=== PATIENT | male | born 1945 | race Two or more races ===

== ENCOUNTER → 2018-12-06 | Emergency (ER) | payer OTHER | LOC: JER 23:17 ==

== ENCOUNTER 2020-05-19 08:48 | Inpatient (IN) | payer OTHER ==
--- NOTE | 2020-05-19 09:01 | PDOC ---
History of Present Illness - General Stated Complaint: SOB/ COUGHING Time Seen by Provider: 05/19/20 08:58 - History of Present Illness Initial Comments: 05/19/20 09:05 74 y/o M hx of HTN, hyperlipidemia, atrial fibrillation (on coumadin), aortic stenosis s/p bioAVR, h/o CVA, CLL(not on meds for last 2 months per his [facility] oncologist). pt began to have dry cough 6 days ago. Pt went to his pcp on Wednesday were he tested positive for covid. was sent home with azithromycin and methylprednisolone, did earlier yesterday but began to have shortness of breath last night. per son, pulse ox at home was 86-87%. pt endorses dry cough and dry heaving denies fevers, chills, vomiting, diarrhea, abdominal pain, dysuria, hematuria PMHx: as noted above ROS: as noted Allergies: NKDA ROS: GENERAL/CONSTITUTIONAL: No fever or chills. No weakness. HEAD, EYES, EARS, NOSE AND THROAT: No change in vision. No ear pain or discharge. No sore throat.pt hard of hearing at baseline CARDIOVASCULAR: No chest pain or shortness of breath RESPIRATORY:dry cough. GASTROINTESTINAL: No nausea, vomiting, diarrhea or constipation. GENITOURINARY: No dysuria, frequency, or change in urination. MUSCULOSKELETAL: No joint or muscle swelling or pain. No neck or back pain. SKIN: No rash NEUROLOGIC: No headache, vertigo, loss of consciousness, or change in strength/sensation. ENDOCRINE: No increased thirst. No abnormal weight change HEMATOLOGIC/LYMPHATIC: No anemia, easy bleeding, or history of blood clots. ALLERGIC/IMMUNOLOGIC: No hives or skin allergy. PE: GENERAL: Awake, alert, and fully oriented, in no acute distress HEAD: No signs of trauma, normocephalic, atraumatic EYES: PERRLA, EOMI, sclera anicteric, conjunctiva clear ENT: Auricles normal inspection, hearing grossly normal, nares patent, oropharynx clear without exudates. Moist mucosa NECK: Normal ROM, supple, no lymphadenopathy, JVD, or masses LUNGS: crackles in lung bases bilaterally. using accessory muscles. HEART: tachycardic, normal S1 and S2, no murmurs, rubs or gallops, peripheral pulses normal and equal bilaterally. ABDOMEN: Soft, nontender, normoactive bowel sounds. No guarding, no rebound. No masses EXTREMITIES trace edema bilateral extremities. NEUROLOGICAL: Cranial nerves II through XII grossly intact. Normal speech, no focal sensorimotor deficits SKIN: Warm, Dry, normal turgor, no rashes or lesions noted MDM 05/19/20 09:33 74 y/o M hx of HTN, hyperlipidemia, atrial fibrillation (on coumadin), aortic stenosis s/p bioAVR, h/o CVA, CLL(not on meds for last 2 months per his [facility] oncologist). covid-19 workup pt 78% on room air, initially placed on nasal cannula. with mild improvement in O2sat, but work of breathing still significant -now on NRB at 89% will continue to monitor work of breathing, but pt might require high flow/intubation respiratory paged for high flow. 05/19/20 10:00 CXR: bilateral infiltrates. will admit to hospital. 05/19/20 10:50 Past History - Medical History Allergies/Adverse Reactions: Allergies Allergy/AdvReac Type Severity Reaction Status Date / Time No Known Allergies Allergy Verified 12/06/18 23:28 Home Medications: Ambulatory Orders Furosemide [Lasix -] 40 mg PO DAILY 11/14/14 Cyclophosphamide 50 mg PO DAILY 03/01/18 Warfarin Na [Coumadin -] 12 mg PO DAILY@1800 tablet 03/02/18 Meclizine HCl 12.5 mg PO PRN 12/07/18 Metoprolol Succinate 25 mg PO DAILY 12/07/18 Simvastatin 40 mg PO HS 12/07/18 Aspirin [ASA -] 81 mg PO DAILY #30 tab.chew 12/13/18 Cancer: Yes (colon, CLL) Cardiac Disorders: Yes (aFIB, aortic stenosis) CVA: Yes (2012) COPD: No CHF: Yes GI Disorders: Yes (h/o colon cancer) HTN: Yes Hypercholesterolemia: Yes - Surgical History Abdominal Surgery: Yes (colectomy) Cardiac Surgery: Yes (aortic valve replacement) - Immunization History Td Vaccination: Yes Immunization Up to Date: Yes - Psycho-Social/Smoking History Smoking Status: No Smoking History: Never smoked Years of Tobacco Use: 0 Have you smoked in the past 12 months: No Number of Cigarettes Smoked Daily: 0 Cigars Per Day: 0 ED Treatment Course - LABORATORY CBC & Chemistry Diagram: 05/25/20 06:00 05/25/20 06:00 Discharge - Discharge Information Problems reviewed: Yes Clinical Impression/Diagnosis: COVID-19 with multiple comorbidities Condition: Disposition: - Follow up/Referral - Patient Discharge Instructions - Post Discharge Activity
--- OUTSIDE RECORDS SUMMARY | 2020-05-19 09:34 | XMS ---
:1945 Author Organization [facility] Support Name Relationship Address Phone DRE MARCUM SON [address] [facility] [facility] [facility] [place] [phone] RE Unavailable Unavailable Unavailable DINO MARCUM [address] [facility] [place] [address] Re-disclosure Warning The records that you are about to access may contain information from federally- assisted alcohol or drug abuse programs. If such information is present, then the following federally mandated warning applies: This information has been disclosed to you from records protected by federal confidentiality rules (42 CFR part 2). The federal rules prohibit you from making any further disclosure of this information unless further disclosure is expressly permitted by the written consent of the person to whom it pertains or as otherwise permitted by 42 CFR part 2. A general authorization for the release of medical or other information is NOT sufficient for this purpose. The Federal rules restrict any use of the information to criminally investigate or prosecute any alcohol or drug abuse patient.The records that you are about to access may contain highly sensitive health information, the redisclosure of which is protected by Article 27-F of the [facility] Public Health law. If you continue you may haveaccess to information: Regarding HIV / AIDS; Provided by facilities licensed or operated by the [facility] Office of Mental Health; or Provided by the [facility] Office for People With Developmental Disabilities. If such information is present, then the following [facility] mandated warning applies: This information has been disclosed to you from confidential records which are protected by state law. State law prohibits you from making any further disclosure of this information without the specific written consent of the person to whom it pertains, or as otherwise permitted by law. Any unauthorized further disclosure in violation of state law may result in a fine or residential sentence or both. A general authorization for the release of medical or other information is NOT sufficient authorization for further disclosure. Insurance Providers Payer name Policy type Policy ID Covered Covered green party's Policy P alycia / Coverage green party ID relationship to Dennis Inf ormation type dennis AFFILIATED [id number] SP [id number] HEALTH AND INSURANC MEDICARE [id number] SP [id number] [employer] [id number] SP [id number] HEALTH[employer]ERS [id number] SP [id number] LOCAL 210 Results ID Date Data Source [id number] 12/05/2019 12:00:00 AM EDT [facility] Name Value Range Interpretation Code Description Data Fani rce(s) Supporting Document(s ) 2019-nCoV [facility] RNA XXX DAWIT+probe- Imp This lab was ordered by [facility] and reported by [employer] Procedure
[2020-05-19] MEDS ORDERED: DEXAMETHASONE SOD PHOSPHATE 4 MG/1 ML VIAL IVPUSH ONE (10:14)
[2020-05-19 10:20] LABS: VENOUS O2 SATURATION 39.5 % (70-80); VENOUS PCO2 33.1 mmHg (38-52); VENOUS PH 7.399 (7.310-7.410)
[2020-05-19 10:24] LABS: EPI CELLS 13 /uL (0-25.1); HYALINE CASTS 3 /uL (0-3.1); PROTHROMBIN TIME (PATIENT) 65.5 SEC (9.7-13.0); URINE APPEARANCE CLEAR; URINE BACTERIA 2 /uL (0-1359); URINE BILIRUBIN NEGATIVE (NEGATIVE); URINE COLOR YELLOW; URINE GLUCOSE (UA) NEGATIVE (NEGATIVE); URINE KETONE NEGATIVE (NEGATIVE); URINE LEUK ESTERASE NEGATIVE (NEGATIVE); URINE NITRITE NEGATIVE (NEGATIVE); URINE PROTEIN 3+ (NEGATIVE); URINE RBC 8 /uL (0-23.9); URINE WBC 9 /uL (0-25.8)
[2020-05-19 10:27] LABS: ACTIVATED PTT 37.4 SECONDS (25.2-36.5)
[2020-05-19 10:32] LABS: CHLORIDE 104 mmol/L (98-107); POTASSIUM 4.3 mmol/L (3.5-5.1); SODIUM 135 mmol/L (136-145)
[2020-05-19 10:34] LABS: CALCIUM 8.5 mg/dL (8.5-10.1)
[2020-05-19 10:35] LABS: ALBUMIN 3.7 g/dl (3.4-5.0); ANION GAP 9 MMOL/L (8-16); BLOOD UREA NITROGEN 26.7 mg/dL (7-18); CO2 23 mmol/L (21-32); GLUCOSE,RANDOM 103 mg/dL (74-106)
[2020-05-19] MEDS ORDERED: DEXAMETHASONE SOD PHOSPHATE 4 MG/1 ML VIAL ONE (10:37)
[2020-05-19 10:38] LABS: SGOT/AST 41 U/L (15-37); SGPT/ALT 23 U/L (13-61)
[2020-05-19 10:40] LABS: BILIRUBIN,TOTAL 0.7 mg/dL (0.2-1); TOT PROT 6.8 g/dl (6.4-8.2)
[2020-05-19 10:41] LABS: ALK PHOS 82 U/L (45-117)
--- NOTE | 2020-05-19 10:55 | PDOC ---
Documentation entered by Margarita Junior SCRIBE, acting as scribe for Briana Feldman MD. Briana Feldman MD: This documentation has been prepared by the Vernon rutherford Ana, SCRIBE, under my direction and personally reviewed by me in its entirety. I confirm that the documentation accurately reflects all work, treatment, procedures, and medical decision making performed by me. Attending Attestation - Resident Resident Name: John Persaud - ED Attending Attestation I have performed the following: I have examined & evaluated the patient, The case was reviewed & discussed with the resident, I agree w/resident's findings & plan, Exceptions are as noted - HPI HPI: 05/19/20 09:34 Patient is a 74 year old male with a significant past medical history of hypertension, hyperlipidemia, atrial fibrillation, aortic stenosis (s/p bioAVR), CVA, and CLL, who presents to the ED with a dry cough x6 days. Patient stated he went to go see his PCP 2 days ago where he tested positive for COVID19 and sent home with prescribed medications. Patient stated he began to experienced SOB last night and per son his pulse ox was 86% at home. Patient endorses: dry cough and dry heaving Patient denies: fever, chills, vomiting, diarrhea, abdominal pain, dysuria, hematuria, or any other related symptoms. Allergies: NKDA - Physicial Exam PE: 05/19/20 10:23 Agree with resident exam. Patient is alert and oriented and is in moderate respiratory distress. He is speaking in 3-4 word sentences but is extremely tachypneic. Lungs with crackles in the bases bilaterally. 05/19/20 10:31 - Critical Care Time Total Critical Care Time: 60 Critical Care Statement: The care of this patient involved high complexity d ecision making to prevent further life threatening deterioration of the patient's condition and/or to evaluate & treat vital organ system(s) failure or risk of failure. - Medical Decision Making 05/19/20 10:35 Pt presents to the ED complaining of shortness of breath and dry cough for six days. Patient has a history of positive covid test, as well as the extensive past medical history discussed below. Hypoxic on arrival, improved with high flow but remains in the low 90s. Likely COVID PNA. CXR shows bilateral infiltrates. Luke treat with dexamethasone, consult ICU, and admit. Attempted proning but patient was unable to tolerate secondary to enlarged spleen. WIll monitor. Discharge - Discharge Information Problems reviewed: Yes Clinical Impression/Diagnosis: COVID-19 with multiple comorbidities - Follow up/Referral - Patient Discharge Instructions - Post Discharge Activity
[2020-05-19 11:02] LABS: INR 5.6 (0.83-1.09)
[2020-05-19] MEDS ORDERED: ACETAMINOPHEN 1000 MG/100 ML VIAL (NON FORMULARY) IVPB ONE (11:13)
[2020-05-19 11:16] LABS: BASO % 0.2 % (0-2.0); EOS % 0.1 % (0-4.5); HEMATOCRIT 39.1 % (35.4-49); HEMOGLOBIN 11.7 GM/dL (11.7-16.9); MCHC 29.8 g/dl (32.0-35.9); MEAN CELL VOLUME 90.6 fl (80-96); MONO % 2.6 % (3.8-10.2); NEUT % 5.8 % (42.8-82.8); PLATELET COUNT 93 K/MM3 (134-434); RBC 4.31 M/mm3 (4.00-5.60); RDW 17.6 % (11.9-15.9)
[2020-05-19] MEDS ORDERED: ACETAMINOPHEN INJECTION 100 ML IVPB ONE (11:17)
[2020-05-19 11:22] LABS: LDH 444 U/L (87-246)
--- OUTSIDE RECORDS SUMMARY | 2020-05-19 11:35 | XMS ---
:1945 Author Organization [facility] Support Name Relationship Address Phone RE, RETIRED Unavailable Unavailable Unavailable DRE MARCUM SON [address] [facility] [place] [place] [address] RE Unavailable Unavailable Unavailable DINO MARCUM [address] [facility] [place] [address] Re-disclosure Warning The records that you are [...] is protected by Article 27-F of the [facility] Public Health law. If you continue you may haveaccess to information: Regarding HIV / AIDS; Provided by facilities licensed or operated by the [facility] Office of Mental Health; or Provided by the [facility] Office for People With Developmental Disabilities. If such information is present, then the following [facility] mandated warning applies: This information has been [...] law may result in a fine or alf sentence or both. A general authorization for the release of medical or other information is NOT sufficient authorization for further disclosure. Insurance Providers Payer name Policy type Policy ID Covered Covered libertarian's Policy P alycia / Coverage libertarian ID relationship to Dennis Inf ormation type dennis AFFILIATED [id number] SP [id number] HEALTH AND INSURANC MEDICARE [id number] SP [id number] [employer] [id number] SP [id number] [facility] MNT [employer] [id number] SP [id number] LOCAL 210 Results ID Date Data Source [id number] 12/05/2019 12:00:00 AM EDT [facility] Name Value Range Interpretation Code Description Data Fani rce(s) Supporting Document(s ) 2019-nCoV [facility] RNA XXX DAWIT+probe- Imp This lab was ordered by [facility] and reported by [employer] Procedure
--- NOTE | 2020-05-19 11:52 | EKG ---
Test Reason : Blood Pressure : / mmHG Vent. Rate : 123 BPM Atrial Rate : 277 BPM P-R Int : 000 ms QRS Dur : 112 ms QT Int : 350 ms P-R-T Axes : 000 -66 036 degrees QTc Int : 501 ms ATRIAL FIBRILLATION WITH RAPID VENTRICULAR RESPONSE RIGHT BUNDLE BRANCH BLOCK LEFT ANTERIOR FASCICULAR BLOCK BIFASCICULAR BLOCK ABNORMAL ECG WHEN COMPARED WITH ECG OF 07-DEC-2018 00:08, NO SIGNIFICANT CHANGE WAS FOUND Confirmed by JEFFREY VICKERS MD ([id number]) on 05/19/2020 11:52:34 AM Referred By: Confirmed By:JEFFREY VICKERS MD
[2020-05-19] MEDS ORDERED: REMDESIVIR 200 MG in SODIUM CHLORIDE 210 ML IVPB ONE (12:07)
[2020-05-19 12:14] LABS: PLATELET ESTIMATE DECREASED
[2020-05-19 12:16] LABS: LYMPH % 91.3 % (8-40)
--- NOTE | 2020-05-19 13:12 | CON.ID ---
Consult Consult Specialty:: infectious disease Referred by:: dr vicente Reason for Consultation:: pneumonia - History of Present Illness Chief Complaint: sob History of Present Illness: 74 yo man with history of CLL, no meds for 2 months, history of s/p bioAVR chronic cough daughter miguel and positive for covid- tested on Wednesday he took his dad to the PMD for testing - patient was asymptomatic no fevers or chills no SOB no nausea or vomiting no rash he tested postivie for covid was started on medrol martha and Zpak this am was SOB- pulseox 85% at home advised to dome to ED cxray with bilateral infiltrates +hypoxia- now on high flow oxygen elevated inflammatory markers noted last hospitalized 2 years ago for pneumonia he has been doing well recently went to [facility] for [facility] time last Wednesday as well - History Source History Provided By: Patient, Family Member (son) Limitations to Obtaining History: No Limitations - Past Medical History 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 Cardio/Vascular: Yes: AFIB, Aortic Stenosis, HTN, Hyperlipdemia, Mitral Insufficiency Pulmonary: Yes: Cancer (colon cancer ) Gastrointestinal: Yes: Cancer (Colon cancer 19yrs ago) Heme/Onc: Yes: Cancer (CLL) Endocrine: No: Diabetes Mellitus - Past Surgical History Past Surgical History: Yes: Colectomy (secondary colon cancer 19yrs ago), Hernia Repair Additional Surgical History: BIOAVR - Alcohol/Substance Use Hx Alcohol Use: No History of Substance Use: reports: None - Smoking History Smoking history: Never smoked Have you smoked in the past 12 months: No Aproximately how many cigarettes per day: 0 - Social History Usual Living Arrangement: With Spouse ADL: Independent History of Recent Travel: No Home Medications - Allergies Allergies/Adverse Reactions: Allergies Allergy/AdvReac Type Severity Reaction Status Date / Time No Known Allergies Allergy Verified 12/06/18 23:28 - Home Medications Home Medications: Ambulatory Orders Furosemide [Lasix -] 40 mg PO DAILY 11/14/14 Cyclophosphamide 50 mg PO DAILY 03/01/18 Warfarin Na [Coumadin -] 12 mg PO DAILY@1800 tablet 03/02/18 Meclizine HCl 12.5 mg PO PRN 12/07/18 Metoprolol Succinate 25 mg PO DAILY 12/07/18 Simvastatin 40 mg PO HS 12/07/18 Aspirin [ASA -] 81 mg PO DAILY #30 tab.chew 12/13/18 Family Medical History Family History: Denies Review of Systems - Review of Systems Constitutional: denies: Chills, Fever Eyes: reports: No Symptoms HENT: reports: No Symptoms. denies: Difficult Swallowing Neck: reports: No Symptoms Cardiovascular: denies: Chest Pain Respiratory: reports: Cough, SOB Gastrointestinal: reports: No Symptoms. denies: Abdominal Pain, Diarrhea, Nausea, Vomiting Genitourinary: reports: No Symptoms Musculoskeletal: reports: No Symptoms Integumentary: reports: No Symptoms Neurological: reports: No Symptoms Physical Exam Vital Signs: Vital Signs Temperature 98.8 F 05/19/20 08:55 Pulse Rate 115 H 05/19/20 11:55 Respiratory Rate 27 H 05/19/20 11:55 Blood Pressure 155/82 05/19/20 11:55 O2 Sat by Pulse Oximetry (%) 94 L 05/19/20 10:09 Constitutional: Yes: Well Nourished, No Distress, Calm Eyes: Yes: Conjunctiva Clear, EOM Intact HENT: Yes: Atraumatic, Normocephalic. No: Thrush Neck: Yes: Supple Cardiovascular: Yes: Regular Rate and Rhythm Respiratory: Yes: Regular, CTA Bilaterally, Diminished (at bases) Gastrointestinal: Yes: Normal Bowel Sounds, Soft, Abdomen, Obese, Other (hernia, soft, reducible) ...Rectal Exam: Yes: Deferred Edema: No Integumentary: No: Rash Neurological: Yes: Alert, Oriented Labs: CBC, BMP 05/19/20 09:37 05/19/20 09:57 ANC 16K cultures pending Imaging - Results Chest X-ray: Report Reviewed, Image Reviewed (bilateral infiltrates) Problem List - Problems (1) Acute hypoxemic respiratory failure Code(s): J96.01 - ACUTE RESPIRATORY FAILURE WITH HYPOXIA (2) Bilateral pneumonia Code(s): J18.9 - PNEUMONIA, UNSPECIFIED ORGANISM (3) COVID-19 with multiple comorbidities Code(s): U07.1 - COVID-19 (4) Prolonged Q-T interval on ECG Code(s): R94.31 - ABNORMAL ELECTROCARDIOGRAM [ECG] [EKG] (5) CLL (chronic lymphocytic leukemia) Code(s): C91.10 - CHRONIC LYMPHOCYTIC LEUK OF B-CELL TYPE NOT ACHIEVE REMIS Assessment/Plan covid pneumonia with hypoxia- agree with steroids and remdesivir needs influenza testing legionella antigen rocephin/doxycycline (prolonged qtc) daily labs daily inflammatory markers d/w son he is aware family needs to quarantine at home as they have been exposed to both father and daughter
[2020-05-19] MEDS ORDERED: CEFTRIAXONE 2 GM in DEXTROSE 5%-WATER 100 ML IVPB SCH (13:15)
--- NOTE | 2020-05-19 13:37 | CONSULT ---
Consult Consult Specialty:: PULM/CCM Reason for Consultation:: ROSALBA on CKD - History of Present Illness Chief Complaint: Dizziness, fatigue and SOB History of Present Illness: 74 year old male with a significant medical history of hypertension, hyperlipidemia, atrial fibrillation, aortic stenosis (s/p bioAVR), CVA, and CLL, who presents to the ED with a dry cough x6 days. Patient tested positive 2 days ago at PCP office, treated with azythromycin and medrol. Patient was paced on HFNC, given 6 mg of Dex and admitted to ICU for further management of resp iratory failure secondary to COVID-19 PNA in the settings of progressive SOB and bilateral opacities shown on CXR. 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 Cardio/Vascular: Yes: AFIB, Aortic Stenosis, HTN, Hyperlipdemia, Mitral Insufficiency Pulmonary: Yes: Cancer (colon cancer ) Gastrointestinal: Yes: Cancer (Colon cancer 19yrs ago) Endocrine: No: Diabetes Mellitus - Past Surgical History Past Surgical History: Yes: Colectomy (secondary colon cancer 19yrs ago), Hernia Repair Additional Surgical History: BIOAVR - Alcohol/Substance Use Hx Alcohol Use: No History of Substance Use: reports: None - Smoking History Smoking history: Never smoked Have you smoked in the past 12 months: No Aproximately how many cigarettes per day: 0 - Social History Usual Living Arrangement: With Spouse ADL: Independent History of Recent Travel: No Home Medications - Allergies Allergies/Adverse Reactions: Allergies Allergy/AdvReac Type Severity Reaction Status Date / Time No Known Allergies Allergy Verified 12/06/18 23:28 - Home Medications Home Medications: Ambulatory Orders Furosemide [Lasix -] 40 mg PO DAILY 11/14/14 Cyclophosphamide 50 mg PO DAILY 03/01/18 Warfarin Na [Coumadin -] 12 mg PO DAILY@1800 tablet 03/02/18 Meclizine HCl 12.5 mg PO PRN 12/07/18 Metoprolol Succinate 25 mg PO DAILY 12/07/18 Simvastatin 40 mg PO HS 12/07/18 Aspirin [ASA -] 81 mg PO DAILY #30 tab.chew 12/13/18 Family Medical History Family History: Denies Review of Systems - Review of Systems Constitutional: reports: Fever, Weakness Eyes: reports: No Symptoms HENT: reports: No Symptoms Neck: reports: No Symptoms Cardiovascular: reports: Shortness of Breath Respiratory: reports: Cough, Exercise Intolerance, SOB on Exertion Gastrointestinal: reports: No Symptoms Genitourinary: reports: No Symptoms Breasts: reports: No Symptoms Reported Musculoskeletal: reports: Muscle Weakness Integumentary: reports: No Symptoms Neurological: reports: No Symptoms Endocrine: reports: No Symptoms Hematology/Lymphatic: reports: No Symptoms Psychiatric: reports: No Symptoms Physical Exam Vital Signs: Vital Signs Temperature 98.8 F 05/19/20 08:55 Pulse Rate 115 H 05/19/20 11:55 Respiratory Rate 27 H 05/19/20 11:55 Blood Pressure 155/82 05/19/20 11:55 O2 Sat by Pulse Oximetry (%) 94 L 05/19/20 10:09 Constitutional: Yes: Well Nourished, Calm, Mild Distress Eyes: Yes: WNL, Conjunctiva Clear, EOM Intact HENT: Yes: WNL, Atraumatic, Normocephalic Neck: Yes: WNL, Supple, Trachea Midline Cardiovascular: Yes: WNL, Tachycardia, Pulse Irregular, S1, S2 Respiratory: Yes: Cough, Poor Air Entry, SOB on Exertion, Other (HFNC) Gastrointestinal: Yes: WNL, Normal Bowel Sounds, Soft ...Rectal Exam: Yes: Deferred Renal/: Yes: WNL Breast(s): Yes: WNL Musculoskeletal: Yes: Muscle Weakness Extremities: Yes: WNL Edema: No Peripheral Pulses WNL: Yes Integumentary: Yes: WNL ...Motor Strength: WNL Psychiatric: Yes: WNL Labs: CBC, BMP 05/19/20 09:37 05/19/20 09:57 Imaging - Results Chest X-ray: Image Reviewed (Personal read: 05/19 Bilateral opacities) Problem List - Problems (1) COVID-19 with multiple comorbidities Code(s): U07.1 - COVID-19 (2) Acute hypoxemic respiratory failure Code(s): J96.01 - ACUTE RESPIRATORY FAILURE WITH HYPOXIA (3) Abnormal INR Code(s): R79.1 - ABNORMAL COAGULATION PROFILE (4) Atrial fibrillation Code(s): I48.91 - UNSPECIFIED ATRIAL FIBRILLATION Qualifiers: Atrial fibrillation type: chronic (5) CLL (chronic lymphocytic leukemia) Code(s): C91.10 - CHRONIC LYMPHOCYTIC LEUK OF B-CELL TYPE NOT ACHIEVE REMIS (6) Thrombocytopenia Code(s): D69.6 - THROMBOCYTOPENIA, UNSPECIFIED (7) Weakness Code(s): R53.1 - WEAKNESS Assessment/Plan 74 year old male with a significant medical history of hypertension, hyperlipidemia, atrial fibrillation, aortic stenosis (s/p bioAVR), CVA, and CLL, who admitted to ICU for further management of respiratory failure secondary to COVID-19 PNA. -Maintain HFNC (currently on 100%/60 L flow) -Titrate FiO2 to maintain SaO2 >92% -Pulmonary toileting -Continue home dose metoprolol for AFIB -Maintain MAP>65 -Will start Remdesivir -No Convalescent Plasma at this time due to leukocytosis (227) -Dexamethasone 6 mg IVP daily -Continue Rocephin and doxycycline -Follow up on cultures -Appreciated ID recs -Strict I/O -Trend and replete lytes, keep Mg>2, K>4 -Keep NPO at this time due to high risk for intubation -Patient on Coumadin at home, INR roday 5,6; will hold AC today and reassess levels in am; no active bleeding at this time. -SCDs BL LE -Pantoprazole for PUD ppx Jayna Garcia ACNP [id number]
[2020-05-19] MEDS ORDERED: DEXTROSE 5%-WATER 100 ML IVPB ONE (13:40)
[2020-05-19] MEDS: PANTOPRAZOLE SODIUM 40 MG VIAL IVPUSH SCH (14:35)
[2020-05-19] MEDS: METOPROLOL TARTRATE 25 MG TABLET (FP) PO SCH (14:35)
[2020-05-19] MEDS ORDERED: PT OWN MED DRAWER 7, Y5N ONE ×2 (17:58→19:59)
[2020-05-19] MEDS: DOXYCYCLINE INJECTION 100 MG in DEXTROSE 5%-WATER - 100 ML IVPB SCH (22:00)
--- NOTE | 2020-05-19 22:23 | HP ---
Admitting History and Physical - Admission History of Present Illness: Pt is a 74 y/o male w/ PMH significant for HTN, hyperlipidemia, atrial fibrillation (on coumadin), aortic stenosis s/p bioAVR, h/o CVA, CLL(not on meds for last 2 months per his [facility] oncologist). Pt began to have dry cough 6 days ago. Pt went to his pcp on Wednesday where he tested positive for covid and was sent home with azithromycin and methylprednisolone. For the past 24 hrs prior to admission pt began to have shortness of breath. Per pt's son, pulse ox at home was 86-87%. - Past Medical History MGMT SPECIALIST: Yes: CVA Cardiovascular: Yes: AFIB, Aortic Stenosis, HTN, Hyperlipdemia, Mitral Insufficiency Pulmonary: Yes: Cancer (colon cancer ) Gastrointestinal: Yes: Cancer (Colon cancer 19yrs ago) Heme/Onc: Yes: Cancer (CLL) Endocrine: No: Diabetes Mellitus - Past Surgical History Past Surgical History: Yes: Colectomy (secondary colon cancer 19yrs ago), Hernia Repair - Smoking History Smoking history: Never smoked Have you smoked in the past 12 months: No Aproximately how many cigarettes per day: 0 - Alcohol/Substance Use Hx Alcohol Use: No History of Substance Use: reports: None - Social History ADL: Independent History of Recent Travel: No Home Medications - Allergies Allergies/Adverse Reactions: Allergies Allergy/AdvReac Type Severity Reaction Status Date / Time No Known Allergies Allergy Verified 12/06/18 23:28 - Home Medications Home Medications: Ambulatory Orders Furosemide [Lasix -] 40 mg PO DAILY 11/14/14 Cyclophosphamide 50 mg PO DAILY 03/01/18 Warfarin Na [Coumadin -] 12 mg PO DAILY@1800 tablet 03/02/18 Meclizine HCl 12.5 mg PO PRN 12/07/18 Metoprolol Succinate 25 mg PO DAILY 12/07/18 Simvastatin 40 mg PO HS 12/07/18 Aspirin [ASA -] 81 mg PO DAILY #30 tab.chew 12/13/18 Family Medical History Family History: Unremarkable Review of Systems - Review of Systems Constitutional: reports: Loss of Appetite, Weakness Eyes: reports: No Symptoms HENT: reports: No Symptoms Neck: reports: No Symptoms Cardiovascular: reports: Shortness of Breath Respiratory: reports: Cough, SOB Gastrointestinal: reports: No Symptoms Genitourinary: reports: No Symptoms Physical Examination Vital Signs: Vital Signs Temperature 98.1 F 05/19/20 18:10 Pulse Rate 90 05/19/20 20:05 Respiratory Rate 19 05/19/20 18:10 Blood Pressure 123/82 05/19/20 18:10 O2 Sat by Pulse Oximetry (%) 94 L 05/19/20 20:05 Constitutional: Yes: Pallor Eyes: Yes: WNL HENT: Yes: WNL Neck: Yes: WNL, Supple Cardiovascular: Yes: WNL, Regular Rate and Rhythm Respiratory: Yes: Other (Coarse BS B/L) Gastrointestinal: Yes: WNL, Normal Bowel Sounds, Soft Extremities: Yes: WNL Edema: No Neurological: Yes: WNL, Alert, Oriented ...Motor Strength: WNL Labs: CBC, BMP 05/19/20 09:37 05/19/20 09:57 Problem List - Problems (1) Acute hypoxemic respiratory failure Assessment/Plan: Due to COVID-19 pneumonia Cont Hi flow O2 Code(s): J96.01 - ACUTE RESPIRATORY FAILURE WITH HYPOXIA (2) Bilateral pneumonia Assessment/Plan: Cont IV ceftriaxone/Doxycycline Code(s): J18.9 - PNEUMONIA, UNSPECIFIED ORGANISM (3) COVID-19 with multiple comorbidities Assessment/Plan: Cont Remsdivir Cont dexamethasone Code(s): U07.1 - COVID-19 (4) Atrial fibrillation Assessment/Plan: INR elevated However due to elevated D-Dimer will not reverse at this time Monitor for bleeding Daily PT/INR Hold coumadin Code(s): I48.91 - UNSPECIFIED ATRIAL FIBRILLATION Qualifiers: Atrial fibrillation type: chronic (5) CLL (chronic lymphocytic leukemia) Assessment/Plan: Will get heme/onc consult Code(s): C91.10 - CHRONIC LYMPHOCYTIC LEUK OF B-CELL TYPE NOT ACHIEVE REMIS (6) HLD (hyperlipidemia) Code(s): E78.5 - HYPERLIPIDEMIA, UNSPECIFIED (7) HTN (hypertension) Code(s): I10 - ESSENTIAL (PRIMARY) HYPERTENSION
[2020-05-20] MEDS ORDERED: PIPERACILLIN/TAZOB 4.5 GM 4.5 GM in DEXTROSE 5%-WATER 100 ML IVPB SCH (02:30)
[2020-05-20] MEDS ORDERED: PIPERACILLIN/TAZOBACTAM 4.5 GM VIAL IVPB ONE ×2 (03:46→07:29)
[2020-05-20] MEDS ORDERED: DEXTROSE 5%-WATER 100 ML IVPB ONE ×3 (03:46→08:34)
[2020-05-20] MEDS ORDERED: METOPROLOL TARTRATE 5 MG/5 ML VIAL IVPUSH ONE (06:47)
[2020-05-20 07:07] LABS: BASO % 0.1 % (0-2.0); EOS % 0.1 % (0-4.5); HEMATOCRIT 40.1 % (35.4-49); HEMOGLOBIN 12.6 GM/dL (11.7-16.9); LYMPH % 93.9 % (8-40); MCH 27.6 pg (25.7-33.7); MCHC 31.4 g/dl (32.0-35.9); MEAN CELL VOLUME 87.8 fl (80-96); MEAN PLT VOLUME 8.8 fl (7.5-11.1); MONO % 1.3 % (3.8-10.2); NEUT % 4.6 % (42.8-82.8); PLATELET COUNT 72 K/MM3 (134-434); POTASSIUM 3.6 mmol/L (3.5-5.1); RBC 4.56 M/mm3 (4.00-5.60); RDW 17.9 % (11.9-15.9)
[2020-05-20 07:11] LABS: ALBUMIN 3.4 g/dl (3.4-5.0); CALCIUM 8.8 mg/dL (8.5-10.1); MAGNESIUM 2.5 mg/dL (1.8-2.4)
[2020-05-20 07:12] LABS: BLOOD UREA NITROGEN 22.2 mg/dL (7-18)
[2020-05-20 07:14] LABS: CREATININE 0.8 mg/dL (0.55-1.3)
[2020-05-20 07:15] LABS: PHOSPHOROUS 2.6 mg/dL (2.5-4.9)
[2020-05-20 07:16] LABS: BILIRUBIN,TOTAL 0.8 mg/dL (0.2-1); TOT PROT 6.3 g/dl (6.4-8.2)
[2020-05-20 07:22] LABS: PROTHROMBIN TIME (PATIENT) 70.3 SEC (9.7-13.0)
[2020-05-20] MEDS ORDERED: PT OWN MED DRAWER 7, Y5N ONE ×2 (08:34→21:56)
--- NOTE | 2020-05-20 09:07 | PN ---
Progress Note (short form) - Note Progress Note: worsening hypoxia on NRB and high flow oxygen Vital Signs Period Temp Pulse Resp BP Sys/Estevez Pulse Ox Last 24 Hr 98.0 F-98.7 F 62-135 17-27 118-149/75-95 88-100 cor-rrr lungs bilateral rhonchi abd soft,nt ext no edema CBC, BMP 05/20/20 06:30 05/20/20 06:30 [id number] Microbiology 05/19/20 09:37 Blood - Peripheral Venous Blood Culture - Preliminary NO GROWTH OBTAINED AFTER 24 HOURS, INCUBATION TO CONTINUE FOR 4 DAYS. 05/19/20 09:37 Blood - Peripheral Venous Blood Culture - Preliminary NO GROWTH OBTAINED AFTER 24 HOURS, INCUBATION TO CONTINUE FOR 4 DAYS. 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
--- NOTE | 2020-05-20 09:14 | CONSULT ---
Consultation: REQUESTING PROVIDER: Dr. Goetz CONSULT REQUEST: We have been asked to medically evaluate this patient for CLL. HISTORY OF PRESENT ILLNESS: 74M w/ pmhx of hypertension, hyperlipidemia, atrial fibrillation, aortic stenosis (s/p bioAVR), CVA, and CLL (not currently on meds x2 months per [facility] oncologist) presents to the ED with a dry cough x6 days admitted for acute hypoxic respiratory failure / COVID-19 PNA. Per EMR, she tested positive at her outpatient PCP's office 2 days ago and was treated with Azithromycin and Medrol. During this admission, she was placed on high flow, given Dexamethasone 6 mg IV and admitted to the ICU for further management. CXR showed b/l opacities. Onc consulted for hx of CLL. PMHx: As per HPI PShx: Colectomy (08/20 colon ca, 19 years ago), hernia repair Social Hx: Denies FHx: Brother (), heart disease REVIEW OF SYSTEMS: As per HPI PHYSICAL EXAMINATION Vital Signs Temperature 98.7 F 05/20/20 04:00 Pulse Rate 107 H 05/20/20 08:12 Respiratory Rate 24 H 05/20/20 08:00 Blood Pressure 144/95 05/20/20 08:00 O2 Sat by Pulse Oximetry (%) 88 L 05/20/20 08:13 Exam as per attending note Laboratory Tests 05/19/20 05/20/20 05/20/20 09:37 06:30 06:30 WBC 183.0 H* Hgb 12.6 Hct 40.1 Plt Count 72 L D PT with INR INR D-Dimer Ferritin LD Total 369 H C-Reactive Protein COVID-19 (DAWIT) Pending 05/20/20 05/20/20 05/20/20 06:30 06:30 06:30 WBC Hgb Hct Plt Count PT with INR 70.30 H INR Pending D-Dimer 1146 H Ferritin 1022.5 H LD Total C-Reactive Protein 16.0 H COVID-19 (DAWIT) Active Medications Generic Name Dose Route Start Last Admin Trade Name Freq PRN Reason Stop Dose Admin Dexamethasone Sodium Phosphate 6 mg 05/20/20 10:00 Decadron Injection - IVPUSH DAILY ELIS Non-Formulary Medication 100 250 mls @ 250 mls/hr 05/20/20 12:07 mg/ Sodium Chloride IVPB 05/23/20 10:59 DAILY ELIS Doxycycline Hyclate 100 mg/ 100 mls @ 50 mls/hr 05/19/20 13:15 05/19/20 22:00 Dextrose IVPB 50 mls/hr BID ELIS Administration Ceftriaxone Sodium 2 gm/ 100 mls @ 100 mls/hr 05/20/20 10:00 05/20/20 08:50 Dextrose IVPB 100 mls/hr DAILY ELIS Administration Protocol Metoprolol Tartrate 25 mg 05/19/20 14:15 05/19/20 14:35 Lopressor - PO 25 mg DAILY ELIS Administration Pantoprazole Sodium 40 mg 05/19/20 14:15 05/19/20 14:35 Protonix Iv IVPUSH 40 mg DAILY ELIS Administration ASSESSMENT/PLAN: 74M w/ pmhx of hypertension, hyperlipidemia, atrial fibrillation, aortic stenosis (s/p bioAVR), CVA, colon ca (s/p RT/CT 25 years ago) and CLL for 7-8 years (not currently on meds x2 months per [facility] oncologist) presents to the ED with a dry cough x6 days admitted for acute hypoxic respiratory failure 2/2 COVID-19 PNA. Heme/onc consulted for hx of CLL. COVID-19 Pneumonitis Chronic Lymphocytic Leukemia Elevated INR Acute Hypoxic Respiratory Failure -Per pt's , pt was previously on Cyclophosphamide intermittently over the past 8 years; last received 2 months ago (went to Dr. Chico Dumont last ); [phone] -No ca tx currently indicated in setting of acute illness -Currently receiving Remdesivir -Discussed w/ onc attending in starting convalescent plasma in setting of CLL history. There is limited data to support definitive evidence-based practice. As per "Outcomes of COVID-19 in Patients with CLL: a multicenter international experience" - case fatality rate was 36% in patients who received COVID-based therapy. If needed, however, convalescent plasma may be given as the risk of leukostasis is low in mature leukemias. Dispo: We will continue to follow the patient. Thank you for this consultative opportunity. Visit type - Medication Review Med list reviewed for High Risk Meds patients 65 and older: Yes - Emergency Visit Emergency Visit: Yes ED Registration Date: 05/19/20 Care time: The patient presented to the Emergency Department on the above date and was hospitalized for further evaluation of their emergent condition. - New Patient This patient is new to me today: Yes Date on this admission: 05/20/20 - Critical Care Critical Care patient: Yes Total Critical Care Time (in minutes): 36 Critical Care Statement: The care of this patient involved high complexity decision making to prevent further life threatening deterioration of the patient's condition and/or to evaluate & treat vital organ system(s) failure or risk of failure. ATTENDING PHYSICIAN STATEMENT I saw and evaluated the patient. I reviewed the resident's note and discussed the case with the resident. I agree with the resident's findings and plan as documented. SUBJECTIVE: OBJECTIVE: ASSESSMENT AND PLAN:
[2020-05-20 09:39] LABS: INR 6.02 (0.83-1.09)
[2020-05-20] MEDS: PANTOPRAZOLE SODIUM 40 MG VIAL IVPUSH SCH (09:56)
[2020-05-20] MEDS: DEXAMETHASONE SOD PHOSPHATE 4 MG/1 ML VIAL IVPUSH SCH (09:56)
[2020-05-20] MEDS: DOXYCYCLINE INJECTION 100 MG in DEXTROSE 5%-WATER - 100 ML IVPB SCH ×2 (09:56→21:59)
[2020-05-20] MEDS: METOPROLOL TARTRATE 25 MG TABLET (FP) PO SCH ×2 (09:56→21:59)
[2020-05-20] MEDS: CEFTRIAXONE 2 GM in DEXTROSE 5%-WATER 100 ML IVPB SCH ×2 (10:00→11:46)
--- NOTE | 2020-05-20 11:13 | PN ---
Physical Exam: SUBJECTIVE: Patient seen and examined at bedside. The patient reports some shortness of breath. He is anxious, and looks up at his monitor and becomes more anxious when he sees that his O2 saturation is low. Patient's oxygen saturation drops into the 80's when he becomes anxious, but then rises back up to the 90's when he is told to relax. Plan to talk to son to ask the son to tell his father to self-prone himself more. INR is 6.02. Once the INR is below 3, then Eliquis 5mg BID is to be restarted. Plan to also confirm with Hem-Onc whether the patient is not a candidate for C-plasma due to his CLL (WBC count 183 today). To monitor the patient's inflammatory marker, CRP for the morning. He is now more compliant about self-proning after his family has encouraged him to self-prone. OBJECTIVE: Vital Signs Period Temp Pulse Resp BP Sys/Estevez Pulse Ox Last 24 Hr 98.0 F-98.7 F 62-135 17-27 118-155/75-95 88-100 GENERAL: The patient is awake, alert, and fully oriented, in mild distress. HEAD: Normal with no signs of trauma. EYES: PERRL, extraocular movements intact. No ptosis. ENT: Ears normal, nares patent, oropharynx clear without exudates, mildly moist mucous membranes. NECK: Trachea midline, full range of motion, supple. LUNGS: Decreased breath sounds. Coarse breath sounds bilaterally. HEART: Irregular rhythm. Tachycardic. ABDOMEN: Nondistended, normoactive bowel sounds. EXTREMITIES: 2+ pulses, warm, well-perfused, no edema. NEUROLOGICAL: Normal speech, gait not observed. PSYCH: Normal mood, normal affect. SKIN: Warm, dry, normal turgor, no rashes or lesions noted Laboratory Results - last 24 hr 05/19/20 05/19/20 05/19/20 09:37 09:57 11:23 WBC 277.0 H* RBC 4.31 Hgb 11.7 Hct 39.1 MCV 90.6 MCH 27.0 MCHC 29.8 L RDW 17.6 H Plt Count 93 L MPV 9.0 Absolute Neuts (auto) 16.0 H Neutrophils % 5.8 L D Neutrophils % (Manual) 6.0 L D Lymphocytes % 91.3 H Lymphocytes % (Manual) 81.0 H* Monocytes % 2.6 L Monocytes % (Manual) 2 L D Eosinophils % 0.1 D Basophils % 0.2 Blast Cells % (Manual) 3 H D Nucleated RBC % 0 Differential Comment See commed Platelet Estimate Decreased PT with INR INR D-Dimer Sodium Potassium Chloride Carbon Dioxide Anion Gap BUN Creatinine Est GFR (CKD-EPI)AfAm Est GFR (CKD-EPI)NonAf Random Glucose Calcium Phosphorus Magnesium Ferritin Total Bilirubin AST ALT Alkaline Phosphatase LD Total 444 H C-Reactive Protein Total Protein Albumin Influenza A (Rapid) Influenza B (Rapid) Blood Type A POSITIVE Antibody Screen Negative 05/19/20 05/20/20 05/20/20 14:45 06:30 06:30 WBC 183.0 H* RBC 4.56 Hgb 12.6 Hct 40.1 MCV 87.8 MCH 27.6 MCHC 31.4 L RDW 17.9 H Plt Count 72 L D MPV 8.8 Absolute Neuts (auto) 8.5 H Neutrophils % 4.6 L Neutrophils % (Manual) Lymphocytes % 93.9 H Lymphocytes % (Manual) Monocytes % 1.3 L Monocytes % (Manual) Eosinophils % 0.1 Basophils % 0.1 Blast Cells % (Manual) Nucleated RBC % 0 Differential Comment Platelet Estimate PT with INR INR D-Dimer Sodium 138 Potassium 3.6 Chloride 105 Carbon Dioxide 25 Anion Gap 9 BUN 22.2 H Creatinine 0.8 Est GFR (CKD-EPI)AfAm 101.28 Est GFR (CKD-EPI)NonAf 87.38 Random Glucose 111 H Calcium 8.8 Phosphorus 2.6 Magnesium 2.5 H Ferritin Total Bilirubin 0.8 AST 23 ALT 18 Alkaline Phosphatase 75 LD Total 369 H C-Reactive Protein Total Protein 6.3 L Albumin 3.4 Influenza A (Rapid) Negative Influenza B (Rapid) Negative Blood Type Antibody Screen 05/20/20 05/20/20 05/20/20 06:30 06:30 06:30 WBC RBC Hgb Hct MCV MCH MCHC RDW Plt Count MPV Absolute Neuts (auto) Neutrophils % Neutrophils % (Manual) Lymphocytes % Lymphocytes % (Manual) Monocytes % Monocytes % (Manual) Eosinophils % Basophils % Blast Cells % (Manual) Nucleated RBC % Differential Comment Platelet Estimate PT with INR 70.30 H INR 6.02 H* D-Dimer 1146 H Sodium Potassium Chloride Carbon Dioxide Anion Gap BUN Creatinine Est GFR (CKD-EPI)AfAm Est GFR (CKD-EPI)NonAf Random Glucose Calcium Phosphorus Magnesium Ferritin 1022.5 H Total Bilirubin AST ALT Alkaline Phosphatase LD Total C-Reactive Protein 16.0 H Total Protein Albumin Influenza A (Rapid) Influenza B (Rapid) Blood Type Antibody Screen Active Medications Generic Name Dose Route Start Last Admin Trade Name Freq PRN Reason Stop Dose Admin Dexamethasone Sodium Phosphate 6 mg 05/20/20 10:00 05/20/20 09:56 Decadron Injection - IVPUSH 6 mg DAILY ELIS Administration Non-Formulary Medication 100 250 mls @ 250 mls/hr 05/20/20 12:07 mg/ Sodium Chloride IVPB 05/23/20 10:59 DAILY ELIS Doxycycline Hyclate 100 mg/ 100 mls @ 50 mls/hr 05/19/20 13:15 05/20/20 09:56 Dextrose IVPB 50 mls/hr BID ELIS Administration Ceftriaxone Sodium 2 gm/ 100 mls @ 100 mls/hr 05/20/20 10:00 05/20/20 09:56 Dextrose IVPB 100 mls/hr DAILY ELIS Administration Protocol Metoprolol Tartrate 25 mg 05/19/20 14:15 05/20/20 09:56 Lopressor - PO 25 mg DAILY ELIS Administration Pantoprazole Sodium 40 mg 05/19/20 14:15 05/20/20 09:56 Protonix Iv IVPUSH 40 mg DAILY ELIS Administration ASSESSMENT/PLAN: 74 year old male patient with past medical history that includes HTN, hyperlipidemia, atrial fibrillation (on coumadin), aortic stenosis s/p bioAVR, h/o CVA, CLL (not on meds for last 2 months per his [facility] oncologist), who is admitted to the ICU for hypoxia 2/2 COVID. NEURO - A&Ox3 PULM - Decadron 6mg IV daily - on high flow nasal cannula - Ceftriaxone 2gm daily - Doxycycline 100mg BID - Patient's oxygen saturation falls when the patient becomes anxious, so patient is told to relax - Patient is self-proning - Received Remdesivir 100mg today and yesterday per Clinical Panels - C-plasma can be given per Hem-Onc's note CARDIO - Lopressor 25mg BID and 5mg IV BID PRN - Monitoring on telemetry ID - COVID positive in outpatient - Decadron 6mg IV daily - Ceftriaxone 2gm daily - Doxycycline 100mg BID - Received Remdesivir 100mg today and yesterday per Clinical Panels DVT PPx - INR 6.02 with plan to start Eliquis once the INR < 3.0 FEN - Avoiding fluids due to risk of COVID induced pulmonary capillary leak - Monitor and replete electrolytes - NPO Visit type - Emergency Visit Emergency Visit: Yes ED Registration Date: 05/19/20 Care time: The patient presented to the Emergency Department on the above date and was hospitalized for further evaluation of their emergent condition. - New Patient This patient is new to me today: Yes Date on this admission: 05/20/20 - Critical Care Critical Care patient: No Total Critical Care Time (in minutes): 40 Critical Care Statement: The care of this patient involved high complexity decision making to prevent further life threatening deterioration of the patient's condition and/or to evaluate & treat vital organ system(s) failure or risk of failure. - Discharge Referral Referred to [facility] Yes - Medication Review Med list reviewed for High Risk Meds patients 65 and older: Yes ATTENDING PHYSICIAN STATEMENT I saw and evaluated the patient. I reviewed the resident's note and discussed the case with the resident. I agree with the resident's findings and plan as documented. SUBJECTIVE: OBJECTIVE: ASSESSMENT AND PLAN:
[2020-05-20 11:36] LABS: ANISOCYTOSIS 1+; MACROCYTOSIS 0; OVALOCYTE 1+; PLATELET ESTIMATE DECREASED; TEAR DROP CELLS 1+; TOXIC GRANULATION 2+
--- NOTE | 2020-05-20 11:59 | PN ---
Teaching Attending Note Name of Resident: Santy Kumar ATTENDING PHYSICIAN STATEMENT I saw and evaluated the patient. I reviewed the resident's note and discussed the case with the resident. I agree with the resident's findings and plan as documented. SUBJECTIVE: Patient seen and examined in the ICU. Mildly tachypneic on HFOT and 100% NRBM. Started on Remedesivir over the weekend. Convalescent plasma held due possibility of worsening his hypercoagulable state. No CP. Intake & Output 05/18/20 05/19/20 05/19/20 05/20/20 00:59 00:59 23:59 23:59 Intake Total 150 Output Total 300 Balance -150 Weight Last Vital Signs Temp Pulse Resp BP Pulse Ox 98.7 F 108 H 24 H 118/92 93 L 05/20/20 04:00 05/20/20 11:32 05/20/20 10:00 05/20/20 10:00 05/20/20 11:32 Active Medications Dexamethasone Sodium Phosphate (Decadron Injection -) 6 mg IVPUSH DAILY [facility] Last Admin: 05/20/20 09:56 Dose: 6 mg Documented by: Non-Formulary Medication 100 (mg/ Sodium Chloride) 250 mls @ 250 mls/hr IVPB DAILY [facility] Stop: 05/23/20 10:59 Doxycycline Hyclate 100 mg/ (Dextrose) 100 mls @ 50 mls/hr IVPB BID [facility] Last Admin: 05/20/20 09:56 Dose: 50 mls/hr Documented by: Ceftriaxone Sodium 2 gm/ (Dextrose) 100 mls @ 100 mls/hr IVPB DAILY [facility]; Protocol Last Admin: 05/20/20 11:46 Dose: 100 mls/hr Documented by: Metoprolol Tartrate (Lopressor -) 25 mg PO DAILY [facility] Last Admin: 05/20/20 09:56 Dose: 25 mg Documented by: Pantoprazole Sodium (Protonix Iv) 40 mg IVPUSH DAILY [facility] Last Admin: 05/20/20 09:56 Dose: 40 mg Documented by: Constitutional: Yes: Mildly tachypneic at rest Eyes: Yes: WNL, Conjunctiva Clear, EOM Intact HENT: Yes: WNL, Atraumatic, Normocephalic Neck: Yes: WNL, Supple, Trachea Midline Cardiovascular: Yes: WNL, Tachycardia, Pulse Irregular, S1, S2 Respiratory: Yes: Cough, Poor Air Entry, SOB on Exertion, Other (HFNC) Gastrointestinal: Yes: WNL, Normal Bowel Sounds, Soft ...Rectal Exam: Yes: Deferred Renal/: Yes: WNL Breast(s): Yes: WNL Musculoskeletal: Yes: Muscle Weakness Extremities: Yes: WNL Edema: No Peripheral Pulses WNL: Yes Integumentary: Yes: WNL ...Motor Strength: WNL Psychiatric: Yes: WNL Labs: Laboratory Results - last 24 hr 05/19/20 05/19/20 05/19/20 09:37 11:23 14:45 WBC RBC Hgb Hct MCV MCH MCHC RDW Plt Count MPV Absolute Neuts (auto) Neutrophils % Neutrophils % (Manual) 6.0 L D Lymphocytes % 91.3 H Lymphocytes % (Manual) 81.0 H* Monocytes % Monocytes % (Manual) 2 L D Eosinophils % Basophils % Blast Cells % (Manual) 3 H D Nucleated RBC % Differential Comment See commed Platelet Estimate Decreased PT with INR INR D-Dimer Sodium Potassium Chloride Carbon Dioxide Anion Gap BUN Creatinine Est GFR (CKD-EPI)AfAm Est GFR (CKD-EPI)NonAf Random Glucose Calcium Phosphorus Magnesium Ferritin Total Bilirubin AST ALT Alkaline Phosphatase LD Total C-Reactive Protein Total Protein Albumin Influenza A (Rapid) Negative Influenza B (Rapid) Negative Blood Type A POSITIVE Antibody Screen Negative 05/20/20 05/20/20 05/20/20 06:30 06:30 06:30 WBC 183.0 H* RBC 4.56 Hgb 12.6 Hct 40.1 MCV 87.8 MCH 27.6 MCHC 31.4 L RDW 17.9 H Plt Count 72 L D MPV 8.8 Absolute Neuts (auto) 8.5 H Neutrophils % 4.6 L Neutrophils % (Manual) Lymphocytes % 93.9 H Lymphocytes % (Manual) Monocytes % 1.3 L Monocytes % (Manual) Eosinophils % 0.1 Basophils % 0.1 Blast Cells % (Manual) Nucleated RBC % 0 Differential Comment Platelet Estimate PT with INR 70.30 H INR 6.02 H* D-Dimer Sodium 138 Potassium 3.6 Chloride 105 Carbon Dioxide 25 Anion Gap 9 BUN 22.2 H Creatinine 0.8 Est GFR (CKD-EPI)AfAm 101.28 Est GFR (CKD-EPI)NonAf 87.38 Random Glucose 111 H Calcium 8.8 Phosphorus 2.6 Magnesium 2.5 H Ferritin Total Bilirubin 0.8 AST 23 ALT 18 Alkaline Phosphatase 75 LD Total 369 H C-Reactive Protein Total Protein 6.3 L Albumin 3.4 Influenza A (Rapid) Influenza B (Rapid) Blood Type Antibody Screen 05/20/20 05/20/20 06:30 06:30 WBC RBC Hgb Hct MCV MCH MCHC RDW Plt Count MPV Absolute Neuts (auto) Neutrophils % Neutrophils % (Manual) Lymphocytes % Lymphocytes % (Manual) Monocytes % Monocytes % (Manual) Eosinophils % Basophils % Blast Cells % (Manual) Nucleated RBC % Differential Comment Platelet Estimate PT with INR INR D-Dimer 1146 H Sodium Potassium Chloride Carbon Dioxide Anion Gap BUN Creatinine Est GFR (CKD-EPI)AfAm Est GFR (CKD-EPI)NonAf Random Glucose Calcium Phosphorus Magnesium Ferritin 1022.5 H Total Bilirubin AST ALT Alkaline Phosphatase LD Total C-Reactive Protein 16.0 H Total Protein Albumin Influenza A (Rapid) Influenza B (Rapid) Blood Type Antibody Screen Imaging - Results Chest X-ray: Image Reviewed (Personal read: 05/19 Bilateral opacities) Problem List - Problems (1) COVID-19 with multiple comorbidities Code(s): U07.1 - COVID-19 (2) Acute hypoxemic respiratory failure Code(s): J96.01 - ACUTE RESPIRATORY FAILURE WITH HYPOXIA (3) Abnormal INR Code(s): R79.1 - ABNORMAL COAGULATION PROFILE (4) Atrial fibrillation Code(s): I48.91 - UNSPECIFIED ATRIAL FIBRILLATION Qualifiers: Atrial fibrillation type: chronic (5) CLL (chronic lymphocytic leukemia) Code(s): C91.10 - CHRONIC LYMPHOCYTIC LEUK OF B-CELL TYPE NOT ACHIEVE REMIS (6) Thrombocytopenia Code(s): D69.6 - THROMBOCYTOPENIA, UNSPECIFIED (7) Weakness Code(s): R53.1 - WEAKNESS Assessment/Plan HFOT 100% NRBM Remdesivir : Anticipate giving 10 days in total Pulmonary toileting Heme evaluation for Convalescent plasma ABX per ID Strict I/O Minimize IVF NPO at this time due to high risk for intubation Follow INR : start Eliquis or Lovenox once INR < 3 PPI Continue ICU monitoring Dr Cano
--- NOTE | 2020-05-20 12:13 | CON.CARD ---
Cardiology Consult (text) - Consultation Consultation Note: Chief Complaint: sob History of Present Illness: 74M h/o CHF, CLL, CVA, s/p bioAVR, afib p/w sob. Had cough for several days so went to PMD and had +covid test. Then developed sob and o2 sat 80s at home so came to ER. Moderate sob, persistent for past fwe days, with associated dry cough, worse without supplemental 02. No cp palps dizzy loc pnd orthopnea le edema. In ICU, o2 sat improved with high flow 02. Sees Dr. Mei for cardio. 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: Yes: CVA Cardio/Vascular: Yes: AFIB, Aortic Stenosis, HTN, Hyperlipdemia, Mitral Insufficiency Pulmonary: Yes: Cancer Gastrointestinal: Yes: Cancer (Colon cancer 19yrs ago) - Past Surgical History Past Surgical History: Yes: Colectomy (secondary colon cancer 19yrs ago), Hernia Repair - Alcohol/Substance Use Hx Alcohol Use: No History of Substance Use: reports: None - Smoking History Smoking history: Never smoked Have you smoked in the past 12 months: No Aproximately how many cigarettes per day: 0 - Social History Usual Living Arrangement: With Spouse ADL: Independent History of Recent Travel: No Home Medications - Allergies Allergies/Adverse Reactions: Allergies Allergy/AdvReac Type Severity Reaction Status Date / Time No Known Allergies Allergy Verified 12/06/18 23:28 Ambulatory Orders Furosemide [Lasix -] 40 mg PO DAILY 11/14/14 Cyclophosphamide 50 mg PO DAILY 03/01/18 Warfarin Na [Coumadin -] 12 mg PO DAILY@1800 tablet 03/02/18 Meclizine HCl 12.5 mg PO PRN 12/07/18 Metoprolol Succinate 25 mg PO DAILY 12/07/18 Simvastatin 40 mg PO HS 12/07/18 Aspirin [ASA -] 81 mg PO DAILY #30 tab.chew 12/13/18 Family Disease History - Family Disease History Family Disease History: Heart Disease: Brother ( of heart disease) Review of Systems - Review of Systems Constitutional: reports: No Symptoms Eyes: reports: No Symptoms HENT: reports: No Symptoms Neck: reports: No Symptoms Cardiovascular: reports: No Symptoms Gastrointestinal: reports: No Symptoms Genitourinary: reports: No Symptoms Musculoskeletal: reports: No Symptoms Integumentary: reports: No Symptoms Neurological: reports: No Symptoms Endocrine: reports: No Symptoms Hematology/Lymphatic: reports: No Symptoms Psychiatric: reports: No Symptoms Vital Signs: Vital Signs Temp 98.7 F 05/20/20 04:00 Pulse 108 H 05/20/20 11:32 Resp 24 H 05/20/20 10:00 BP 118/92 05/20/20 10:00 Pulse Ox 93 L 05/20/20 11:32 Intake & Output 05/19/20 05/20/20 05/20/20 23:59 11:59 23:59 Intake Total 450 150 Output Total 350 300 Balance 100 -150 Intake: IV 100 VIBRAMYCIN 100 IVPB 350 50 Oral 100 Output: Urine 350 300 Void 350 300 Other: Voiding Method Urinal # Unmeasured Voids Void 2 Bowel Movement No Constitutional: Yes: Well Nourished, No Distress, Calm Eyes: Yes: Conjunctiva Clear, EOM Intact HENT: Yes: Atraumatic, Normocephalic Neck: Yes: Supple, Trachea Midline Respiratory: Yes:scattered rhonchi, nl eff Gastrointestinal: Yes: Normal Bowel Sounds, Soft Cardiovascular: Yes: irreg, tachy JVD: No Carotid Bruit: No Heart Sounds: Yes: S1, S2 Murmur: Yes: Systolic Murmur, Grade 2 Extremities: No: Cold Edema: No Peripheral Pulses WNL: Yes Peripheral Pulses: 2+ Left Doralis Pedis, 2+ Right Dorsalis Pedis Integumentary: No: Jaundice Neurological: Yes: Alert, Oriented Psychiatric: No: Agitated Laboratory Last Values WBC 183.0 K/mm3 (4.0-10.0) H* 05/20/20 06:30 RBC 4.56 M/mm3 (4.00-5.60) 05/20/20 06:30 Hgb 12.6 GM/dL (11.7-16.9) 05/20/20 06:30 Hct 40.1 % (35.4-49) 05/20/20 06:30 MCV 87.8 fl (80-96) 05/20/20 06:30 MCH 27.6 pg (25.7-33.7) 05/20/20 06:30 MCHC 31.4 g/dl (32.0-35.9) L 05/20/20 06:30 RDW 17.9 % (11.9-15.9) H 05/20/20 06:30 Plt Count 72 K/MM3 (134-434) L D 05/20/20 06:30 MPV 8.8 fl (7.5-11.1) 05/20/20 06:30 Absolute Neuts (auto) 8.5 K/mm3 (1.5-8.0) H 05/20/20 06:30 Neutrophils % 4.6 % (42.8-82.8) L 05/20/20 06:30 Neutrophils % (Manual) 4.2 % (42.8-82.8) L 05/20/20 06:30 Band Neutrophils % 0.0 % 05/20/20 06:30 Lymphocytes % 93.9 % (8-40) H 05/20/20 06:30 Lymphocytes % (Manual) 89.6 % (8-40) H* 05/20/20 06:30 Monocytes % 1.3 % (3.8-10.2) L 05/20/20 06:30 Monocytes % (Manual) 0 % (3.8-10.2) L D 05/20/20 06:30 Eosinophils % 0.1 % (0-4.5) 05/20/20 06:30 Eosinophils % (Manual) 0.0 % (0-4.5) 05/20/20 06:30 Basophils % 0.1 % (0-2.0) 05/20/20 06:30 Basophils % (Manual) 0.0 % (0-2.0) 05/20/20 06:30 Myelocytes % (Man) 0 % (0-2) 05/20/20 06:30 Promyelocytes % (Man) 0 % (0-2) 05/20/20 06:30 Blast Cells % (Manual) 0 % (0-0) D 05/20/20 06:30 Nucleated RBC % 0 % (0-0) 05/20/20 06:30 Metamyelocytes 0 % (0-2) 05/20/20 06:30 Differential Comment See commed 05/19/20 09:37 Hypochromia 0 05/20/20 06:30 Toxic Granulation 2+ 05/20/20 06:30 Platelet Estimate Decreased 05/20/20 06:30 Polychromasia 1+ 05/20/20 06:30 Poikilocytosis 1+ 05/20/20 06:30 Anisocytosis 1+ 05/20/20 06:30 Microcytosis 1+ 05/20/20 06:30 Macrocytosis 0 05/20/20 06:30 Tear Drop Cells 1+ 05/20/20 06:30 Ovalocytes 1+ 05/20/20 06:30 [place] Cells 1+ 05/20/20 06:30 Acanthocytes (Spur) 1+ 05/20/20 06:30 PT with INR 70.30 SEC (9.7-13.0) H 05/20/20 06:30 INR 6.02 (0.83-1.09) H* 05/20/20 06:30 PTT (Actin FS) 37.4 SECONDS (25.2-36.5) H 05/19/20 09:37 D-Dimer 1146 ng/ml (0-500) H 05/20/20 06:30 VBG pH 7.399 (7.310-7.410) 05/19/20 09:31 POC VBG pCO2 33.1 mmHg (38-52) L 05/19/20 09:31 POC VBG pO2 22.5 mmHg (28-48) L 05/19/20 09:31 VBG HCO3 20.0 mmol/L (23-29) L 05/19/20 09:31 VBG O2 Sat (Manjula) 39.5 % (70-80) L 05/19/20 09:31 VBG Base Excess -4.0 mmol/L (-2-2) L 05/19/20 09:31 Sodium 138 mmol/L (136-145) 05/20/20 06:30 Potassium 3.6 mmol/L (3.5-5.1) 05/20/20 06:30 Chloride 105 mmol/L (98-107) 05/20/20 06:30 Carbon Dioxide 25 mmol/L (21-32) 05/20/20 06:30 Anion Gap 9 MMOL/L (8-16) 05/20/20 06:30 BUN 22.2 mg/dL (7-18) H 05/20/20 06:30 Creatinine 0.8 mg/dL (0.55-1.3) 05/20/20 06:30 Est GFR (CKD-EPI)AfAm 101.28 05/20/20 06:30 Est GFR (CKD-EPI)NonAf 87.38 05/20/20 06:30 Random Glucose 111 mg/dL (74-106) H 05/20/20 06:30 Lactic Acid 2.0 mmol/L (0.4-2.0) 05/19/20 09:57 Calcium 8.8 mg/dL (8.5-10.1) 05/20/20 06:30 Phosphorus 2.6 mg/dL (2.5-4.9) 05/20/20 06:30 Magnesium 2.5 mg/dL (1.8-2.4) H 05/20/20 06:30 Ferritin 1022.5 ng/ml (8-388) H 05/20/20 06:30 Total Bilirubin 0.8 mg/dL (0.2-1) 05/20/20 06:30 AST 23 U/L (15-37) 05/20/20 06:30 ALT 18 U/L (13-61) 05/20/20 06:30 Alkaline Phosphatase 75 U/L (45-117) 05/20/20 06:30 LD Total 369 U/L (87-246) H 05/20/20 06:30 Creatine Kinase 68 U/L (26-308) 05/19/20 09:57 Troponin I < 0.02 ng/ml (0.00-0.05) 05/19/20 09:57 C-Reactive Protein 16.0 MG/DL (0.00-0.3) H 05/20/20 06:30 Total Protein 6.3 g/dl (6.4-8.2) L 05/20/20 06:30 Albumin 3.4 g/dl (3.4-5.0) 05/20/20 06:30 Urine Color Yellow 05/19/20 09:37 Urine Appearance Clear 05/19/20 09:37 Urine pH 5.0 (5.0-8.0) 05/19/20 09:37 Ur Specific [place] 1.027 (1.010-1.035) 05/19/20 09:37 Urine Protein 3+ (NEGATIVE) H 05/19/20 09:37 Urine Glucose (UA) Negative (NEGATIVE) 05/19/20 09:37 Urine Ketones Negative (NEGATIVE) 05/19/20 09:37 Urine Blood Trace (NEGATIVE) 05/19/20 09:37 Urine Nitrite Negative (NEGATIVE) 05/19/20 09:37 Urine Bilirubin Negative (NEGATIVE) 05/19/20 09:37 Urine Urobilinogen 1.0 mg/dL (0.2-1.0) 05/19/20 09:37 Ur Leukocyte Esterase Negative (NEGATIVE) 05/19/20 09:37 Urine WBC (Auto) 9 /uL (0-25.8) 05/19/20 09:37 Urine RBC (Auto) 8 /uL (0-23.9) 05/19/20 09:37 Urine Casts (Auto) 3 /uL (0-3.1) 05/19/20 09:37 U Epithel Cells (Auto) 13 /uL (0-25.1) 05/19/20 09:37 Urine Bacteria (Auto) 2 /uL (0-1359) 05/19/20 09:37 Influenza A (Rapid) Negative (Negative) 05/19/20 14:45 Influenza B (Rapid) Negative (Negative) 05/19/20 14:45 Blood Type A POSITIVE 05/19/20 11:23 Antibody Screen Negative 05/19/20 11:23 EKG: afib, vr 120s, old RBBB, nl qtc manually, no sig change prior tele: afib, vr 100s-120s cxr: bl infiltrates echo 11/2018: nl lv/rv, maritza, mod-sev mr/tr, avr wnl, rvsp 30-40; on review by Dr Olivera and Hamida, MR and TR do not appear severe a/p: 74M h/o CHF, CLL, CVA, s/p bioAVR, afib p/w sob. covid PNA, hypoxia, sob: -no signs chf, acs -cont abx per ID. ecg with rbbb so qtc not as reliable but manually calculated appears normal, monitor on tele. -cont supplemental o2 s/p bioAVR - nl fcn on recent echo - cont ac per inr afib - rvr here likely due to infection, resp distress. Cont lopressor po and iv prn. So far bp has been stable. Cont tele. - cont coumadin per inr (currently holding due to inr supratherapeutic) chronic diastolic HF - appears euvolemic presently - sob sec to PNA CLL, thrombocytopenia - manage per onc
[2020-05-20] MEDS ORDERED: METOPROLOL TARTRATE 5 MG/5 ML VIAL IVPUSH PRN (12:22)
[2020-05-20] MEDS: REMDESIVIR 100 MG in SODIUM CHLORIDE 230 ML IVPB SCH (12:32)
--- NOTE | 2020-05-20 16:08 | PN ---
Teaching Attending Note Name of Resident: Jerri Rodríguez ATTENDING PHYSICIAN STATEMENT I saw and evaluated the patient. I reviewed the resident's note and discussed the case with the resident. I agree with the resident's findings and plan as documented. 74M with known hx of CLL on and off cyclophosphamide (most recently stopped > 2months prior) presents with SOB found to have COVID PNA now on hiflo O2. WBC ~180k. Patient also on decadron for symptom control. At this time would not recommend any immunosuppresive therapy for CLL given his underlying infection. Also if needed, covalescent plasma can be given. Although there is not much data, the risk of leukostasis is low in mature leukemias and usually more of a concern with immature cells like blasts (as they are larger). "Outcomes of COVID-19 in patients with CLL: a multicenter international experience" [email or web address]-[email or web address]
--- NOTE | 2020-05-20 21:37 | PN ---
Progress Note, Physician History of Present Illness: Pt still SOB - Current Medication List Current Medications: Active Medications Dexamethasone Sodium Phosphate (Decadron Injection -) 6 mg IVPUSH DAILY [facility] Last Admin: 05/20/20 09:56 Dose: 6 mg Documented by: Non-Formulary Medication 100 (mg/ Sodium Chloride) 250 mls @ 250 mls/hr IVPB DAILY [facility] Stop: 05/23/20 10:59 Last Admin: 05/20/20 12:32 Dose: 250 mls/hr Documented by: Doxycycline Hyclate 100 mg/ (Dextrose) 100 mls @ 50 mls/hr IVPB BID [facility] Last Admin: 05/20/20 09:56 Dose: 50 mls/hr Documented by: Ceftriaxone Sodium 2 gm/ (Dextrose) 100 mls @ 100 mls/hr IVPB DAILY [facility]; Protocol Last Admin: 05/20/20 11:46 Dose: 100 mls/hr Documented by: Metoprolol Tartrate (Lopressor -) 25 mg PO BID [facility] Metoprolol Tartrate (Lopressor Injection -) 5 mg IVPUSH Q4H PRN PRN Reason: TACHYCARDIA Pantoprazole Sodium (Protonix Iv) 40 mg IVPUSH DAILY [facility] Last Admin: 05/20/20 09:56 Dose: 40 mg Documented by: - Objective Vital Signs: Vital Signs Temperature 98.6 F 05/20/20 20:00 Pulse Rate 119 H 05/20/20 20:00 Respiratory Rate 26 H 05/20/20 20:00 Blood Pressure 132/74 05/20/20 20:00 O2 Sat by Pulse Oximetry (%) 95 05/20/20 21:00 Cardiovascular: Yes: WNL, Regular Rate and Rhythm Respiratory: Yes: Other (Coarse BS B/L) Gastrointestinal: Yes: WNL, Normal Bowel Sounds, Soft Labs: CBC, BMP 05/20/20 06:30 05/20/20 06:30 INR, PTT INR 6.02 (0.83-1.09) H* 05/20/20 06:30 Problem List - Problems (1) Acute hypoxemic respiratory failure Assessment/Plan: Due to COVID-19 pneumonia Cont Hi flow O2 Code(s): J96.01 - ACUTE RESPIRATORY FAILURE WITH HYPOXIA (2) Bilateral pneumonia Assessment/Plan: Cont IV ceftriaxone/Doxycycline Code(s): J18.9 - PNEUMONIA, UNSPECIFIED ORGANISM (3) COVID-19 with multiple comorbidities Assessment/Plan: Cont Remedesivir Cont dexamethasone Code(s): U07.1 - COVID-19 (4) Atrial fibrillation Code(s): I48.91 - UNSPECIFIED ATRIAL FIBRILLATION Qualifiers: Atrial fibrillation type: chronic (5) CLL (chronic lymphocytic leukemia) Code(s): C91.10 - CHRONIC LYMPHOCYTIC LEUK OF B-CELL TYPE NOT ACHIEVE REMIS (6) HLD (hyperlipidemia) Code(s): E78.5 - HYPERLIPIDEMIA, UNSPECIFIED (7) HTN (hypertension) Code(s): I10 - ESSENTIAL (PRIMARY) HYPERTENSION
[2020-05-21 06:19] LABS: HEMATOCRIT 38.8 % (35.4-49); HEMOGLOBIN 11.9 GM/dL (11.7-16.9); LYMPH % 91.2 % (8-40); MCH 26.9 pg (25.7-33.7); MCHC 30.7 g/dl (32.0-35.9); MEAN CELL VOLUME 87.7 fl (80-96); MEAN PLT VOLUME 8.3 fl (7.5-11.1); MONO % 4.3 % (3.8-10.2); NEUT % 4.5 % (42.8-82.8); PLATELET COUNT 92 K/MM3 (134-434); RBC 4.42 M/mm3 (4.00-5.60); RDW 17.9 % (11.9-15.9)
[2020-05-21 06:24] LABS: PROTHROMBIN TIME (PATIENT) 62.6 SEC (9.7-13.0)
[2020-05-21 06:41] LABS: POTASSIUM 4.1 mmol/L (3.5-5.1)
[2020-05-21 06:43] LABS: CALCIUM 8.8 mg/dL (8.5-10.1)
[2020-05-21 06:45] LABS: BLOOD UREA NITROGEN 32.1 mg/dL (7-18); MAGNESIUM 2.6 mg/dL (1.8-2.4)
[2020-05-21 06:47] LABS: CREATININE 0.8 mg/dL (0.55-1.3); PHOSPHOROUS 2.9 mg/dL (2.5-4.9)
[2020-05-21 06:48] LABS: BILIRUBIN,TOTAL 0.7 mg/dL (0.2-1)
[2020-05-21 06:49] LABS: TOT PROT 5.9 g/dl (6.4-8.2)
[2020-05-21 07:38] LABS: INR 5.44 (0.83-1.09)
[2020-05-21 08:06] LABS: WHITE BLOOD COUNT 266.5 K/mm3 (4.0-10.0)
[2020-05-21] MEDS ORDERED: DEXTROSE 5%-WATER 100 ML IVPB ONE (09:36)
[2020-05-21] MEDS: DOXYCYCLINE INJECTION 100 MG in DEXTROSE 5%-WATER - 100 ML IVPB SCH ×2 (10:04→21:19)
[2020-05-21] MEDS: DEXAMETHASONE SOD PHOSPHATE 4 MG/1 ML VIAL IVPUSH SCH (10:05)
[2020-05-21] MEDS: METOPROLOL TARTRATE 25 MG TABLET (FP) PO SCH ×2 (10:05→21:19)
[2020-05-21] MEDS: CEFTRIAXONE 2 GM in DEXTROSE 5%-WATER 100 ML IVPB SCH (10:05)
[2020-05-21] MEDS: PANTOPRAZOLE SODIUM 40 MG VIAL IVPUSH SCH (10:06)
[2020-05-21] MEDS: REMDESIVIR 100 MG in SODIUM CHLORIDE 230 ML IVPB SCH (10:36)
[2020-05-21 11:22] LABS: ANISOCYTOSIS 1+; MACROCYTOSIS 1+; PLATELET ESTIMATE DECREASED
--- NOTE | 2020-05-21 11:51 | PN ---
Physical Exam: SUBJECTIVE: Patient seen and examined at bedside. The patient reports feeling very hungry and thirsty, as he hasn't eaten since Wednesday. The nurse stated that the patient has been able to tolerate swallowing his medications with water. Plan for a diet of Jello or Pudding was put in for lunch (which are less likely to be aspirated if the patient breaths while eating due to shortness of breath). Per Hem Onc's note, the patient's CLL is not a contraindication for Convalescent Plasma, so the son and patient will be asked regarding consent and the consent form will be filled out for C-plasma. The patient's oxygen saturation occasionally drops to the low 80's or even high 70's, but returns to the 90's once the patient is told to self-prone and take deep breaths. Patient was able to tolerate lunch without complications. The patient's son was called and consent was obtained. The patient also agreed verbally to the convalescent plasma. OBJECTIVE: Vital Signs Period Temp Pulse Resp BP Sys/Estevez Pulse Ox Last 24 Hr 98 F-99 F 97-127 19-31 93-137/49-92 84-96 GENERAL: The patient is awake, alert, and fully oriented, in mild distress. HEAD: Normal with no signs of trauma. EYES: PERRL, extraocular movements intact. No ptosis. ENT: Ears normal, nares patent, oropharynx clear without exudates, mildly moist mucous membranes. NECK: Trachea midline, full range of motion, supple. LUNGS: Decreased breath sounds. HEART: Irregular rhythm. Tachycardic. ABDOMEN: Nondistended, normoactive bowel sounds. EXTREMITIES: 2+ pulses, warm, well-perfused, no edema. NEUROLOGICAL: Normal speech, gait not observed. PSYCH: Normal mood, normal affect. SKIN: Warm, dry, normal turgor, no rashes or lesions noted Laboratory Results - last 24 hr 05/19/20 05/20/20 05/20/20 09:37 06:30 18:53 WBC RBC Hgb Hct MCV MCH MCHC RDW Plt Count MPV Absolute Neuts (auto) Neutrophils % Neutrophils % (Manual) 4.2 L Band Neutrophils % 0.0 Lymphocytes % Lymphocytes % (Manual) 89.6 H* Monocytes % Monocytes % (Manual) 0 L D Eosinophils % Eosinophils % (Manual) 0.0 Basophils % Basophils % (Manual) 0.0 Myelocytes % (Man) 0 Promyelocytes % (Man) 0 Blast Cells % (Manual) 0 D Nucleated RBC % 0 Metamyelocytes 0 Hypochromia 0 Toxic Granulation 2+ Platelet Estimate Decreased Polychromasia 1+ Poikilocytosis 1+ Anisocytosis 1+ Microcytosis 1+ Macrocytosis 0 Tear Drop Cells 1+ Ovalocytes 1+ [place] Cells 1+ Acanthocytes (Spur) 1+ PT with INR INR D-Dimer Sodium Potassium Chloride Carbon Dioxide Anion Gap BUN Creatinine Est GFR (CKD-EPI)AfAm Est GFR (CKD-EPI)NonAf POC Glucometer 120 Random Glucose Calcium Phosphorus Magnesium Total Bilirubin AST ALT Alkaline Phosphatase C-Reactive Protein Total Protein Albumin COVID-19 (DAWIT) Detected H 05/21/20 05/21/20 05/21/20 05:55 05:55 05:55 WBC 266.5 H* RBC 4.42 Hgb 11.9 Hct 38.8 MCV 87.7 MCH 26.9 MCHC 30.7 L RDW 17.9 H Plt Count 92 L D MPV 8.3 Absolute Neuts (auto) 12.0 H Neutrophils % 4.5 L Neutrophils % (Manual) Band Neutrophils % Lymphocytes % 91.2 H Lymphocytes % (Manual) Monocytes % 4.3 D Monocytes % (Manual) Eosinophils % 0.0 D Eosinophils % (Manual) Basophils % 0.0 Basophils % (Manual) Myelocytes % (Man) Promyelocytes % (Man) Blast Cells % (Manual) Nucleated RBC % 0 Metamyelocytes Hypochromia Toxic Granulation Platelet Estimate Polychromasia Poikilocytosis Anisocytosis Microcytosis Macrocytosis Tear Drop Cells Ovalocytes [place] Cells Acanthocytes (Spur) PT with INR 62.60 H INR 5.44 H* D-Dimer Sodium 140 Potassium 4.1 Chloride 107 Carbon Dioxide 24 Anion Gap 9 BUN 32.1 H Creatinine 0.8 Est GFR (CKD-EPI)AfAm 101.28 Est GFR (CKD-EPI)NonAf 87.38 POC Glucometer Random Glucose 119 H Calcium 8.8 Phosphorus 2.9 Magnesium 2.6 H Total Bilirubin 0.7 AST 19 ALT 15 Alkaline Phosphatase 76 C-Reactive Protein 16.4 H Total Protein 5.9 L Albumin 3.0 L COVID-19 (DAWIT) 05/21/20 05:55 WBC RBC Hgb Hct MCV MCH MCHC RDW Plt Count MPV Absolute Neuts (auto) Neutrophils % Neutrophils % (Manual) Band Neutrophils % Lymphocytes % Lymphocytes % (Manual) Monocytes % Monocytes % (Manual) Eosinophils % Eosinophils % (Manual) Basophils % Basophils % (Manual) Myelocytes % (Man) Promyelocytes % (Man) Blast Cells % (Manual) Nucleated RBC % Metamyelocytes Hypochromia Toxic Granulation Platelet Estimate Polychromasia Poikilocytosis Anisocytosis Microcytosis Macrocytosis Tear Drop Cells Ovalocytes [place] Cells Acanthocytes (Spur) PT with INR INR D-Dimer 1073 H Sodium Potassium Chloride Carbon Dioxide Anion Gap BUN Creatinine Est GFR (CKD-EPI)AfAm Est GFR (CKD-EPI)NonAf POC Glucometer Random Glucose Calcium Phosphorus Magnesium Total Bilirubin AST ALT Alkaline Phosphatase C-Reactive Protein Total Protein Albumin COVID-19 (DAWIT) Active Medications Generic Name Dose Route Start Last Admin Trade Name Freq PRN Reason Stop Dose Admin Dexamethasone Sodium Phosphate 6 mg 05/20/20 10:00 05/21/20 10:05 Decadron Injection - IVPUSH 6 mg DAILY [facility] Administration Non-Formulary Medication 100 250 mls @ 250 mls/hr 05/20/20 12:07 05/21/20 10:36 mg/ Sodium Chloride IVPB 05/23/20 10:59 250 mls/hr DAILY [facility] Administration Doxycycline Hyclate 100 mg/ 100 mls @ 50 mls/hr 05/19/20 13:15 05/21/20 10:04 Dextrose IVPB 50 mls/hr BID [facility] Administration Ceftriaxone Sodium 2 gm/ 100 mls @ 100 mls/hr 05/20/20 10:00 05/21/20 10:05 Dextrose IVPB 100 mls/hr DAILY [facility] Administration Protocol Metoprolol Tartrate 25 mg 05/20/20 22:00 05/21/20 10:05 Lopressor - PO 25 mg BID [facility] Administration Metoprolol Tartrate 5 mg 05/20/20 12:22 Lopressor Injection - IVPUSH Q4H PRN TACHYCARDIA Pantoprazole Sodium 40 mg 05/19/20 14:15 05/21/20 10:06 Protonix Iv IVPUSH 40 mg DAILY [facility] Administration ASSESSMENT/PLAN: 74 year old male patient with past medical history that includes HTN, hyperlipidemia, atrial fibrillation (on coumadin), aortic stenosis s/p bioAVR, h/o CVA, CLL (not on meds for last 2 months per his [facility] oncologist), who is admitted to the ICU for hypoxia 2/2 COVID. NEURO - A&Ox3 PULM - Patient's oxygen saturation falls when the patient becomes anxious, so patient is told to relax - on high flow nasal cannula at 95% with non-rebreather mask on top at 100% O2 - Patient is self-proning - Decadron 6mg IV daily - Remdesivir 100mg day 3 - C-plasma to be given - Ceftriaxone 2gm daily - Doxycycline 100mg BID [facility] - Monitoring on telemetry - Has Atrial Fibrillation - Lopressor 25mg BID PO - Also Lopressor 5mg IV Q4 PRN ID - COVID positive - Decadron 6mg IV daily - Remdesivir 100mg day 3 - C-plasma to be given - Ceftriaxone 2gm daily - Doxycycline 100mg BID DVT PPx - INR 5.44 with plan to start Eliquis once the INR < 3.0 FEN - Avoiding IV fluids due to risk of COVID induced pulmonary capillary leak - Monitor and replete electrolytes - Diet of Jello or Pudding, which are less likely to be aspirated if the patient breaths while eating due to shortness of breath Visit type - Emergency Visit Emergency Visit: Yes ED Registration Date: 05/19/20 Care time: The patient presented to the Emergency Department on the above date and was hospitalized for further evaluation of their emergent condition. - New Patient This patient is new to me today: No - Critical Care Critical Care patient: Yes Total Critical Care Time (in minutes): 40 Critical Care Statement: The care of this patient involved high complexity decision making to prevent further life threatening deterioration of the patient's condition and/or to evaluate & treat vital organ system(s) failure or risk of failure. - Discharge Referral Referred to [facility] Med [facility] No - Medication Review Med list reviewed for High Risk Meds patients 65 and older: Yes ATTENDING PHYSICIAN STATEMENT I saw and evaluated the patient. I reviewed the resident's note and discussed the case with the resident. I agree with the resident's findings and plan as documented. SUBJECTIVE: OBJECTIVE: ASSESSMENT AND PLAN:
--- NOTE | 2020-05-21 12:19 | PN ---
Progress Note (short form) - Note Progress Note: cc: sob s: still has dyspnea, no chest pain, palps, dizziness, edema. on high flow O2 Current Medications Generic Name Dose Route Start Last Admin Trade Name Anthony PRN Reason Stop Dose Admin Dexamethasone Sodium Phosphate 6 mg 05/20/20 10:00 05/21/20 10:05 Decadron Injection - IVPUSH 6 mg DAILY ELIS Administration Non-Formulary Medication 100 250 mls @ 250 mls/hr 05/20/20 12:07 05/21/20 10:36 mg/ Sodium Chloride IVPB 05/23/20 10:59 250 mls/hr DAILY ELIS Administration Doxycycline Hyclate 100 mg/ 100 mls @ 50 mls/hr 05/19/20 13:15 05/21/20 10:04 Dextrose IVPB 50 mls/hr BID ELIS Administration Ceftriaxone Sodium 2 gm/ 100 mls @ 100 mls/hr 05/20/20 10:00 05/21/20 10:05 Dextrose IVPB 100 mls/hr DAILY ELIS Administration Protocol Metoprolol Tartrate 25 mg 05/20/20 22:00 05/21/20 10:05 Lopressor - PO 25 mg BID ELIS Administration Metoprolol Tartrate 5 mg 05/20/20 12:22 Lopressor Injection - IVPUSH Q4H PRN TACHYCARDIA Pantoprazole Sodium 40 mg 05/19/20 14:15 05/21/20 10:06 Protonix Iv IVPUSH 40 mg DAILY ELIS Administration Vital Signs Period Temp Pulse Resp BP Sys/Estevez Pulse Ox Last 24 Hr 98 F-98.7 F 97-127 19-31 93-137/49-92 84-96 Constitutional: Yes: Well Nourished, No Distress, Calm Eyes: Yes: Conjunctiva Clear, EOM Intact HENT: Yes: Atraumatic, Normocephalic Neck: Yes: Supple, Trachea Midline Respiratory: Yes:scattered rhonchi, nl eff Gastrointestinal: Yes: Normal Bowel Sounds, Soft Cardiovascular: Yes: irreg, tachy JVD: No Carotid Bruit: No Heart Sounds: Yes: S1, S2 Murmur: Yes: Systolic Murmur, Grade 2 Extremities: No: Cold Edema: No Peripheral Pulses WNL: Yes Peripheral Pulses: 2+ Left Doralis Pedis, 2+ Right Dorsalis Pedis Integumentary: No: Jaundice Neurological: Yes: Alert, Oriented Psychiatric: No: Agitated Laboratory Last Values WBC 266.5 K/mm3 (4.0-10.0) H* 05/21/20 05:55 RBC 4.42 M/mm3 (4.00-5.60) 05/21/20 05:55 Hgb 11.9 GM/dL (11.7-16.9) 05/21/20 05:55 Hct 38.8 % (35.4-49) 05/21/20 05:55 MCV 87.7 fl (80-96) 05/21/20 05:55 MCH 26.9 pg (25.7-33.7) 05/21/20 05:55 MCHC 30.7 g/dl (32.0-35.9) L 05/21/20 05:55 RDW 17.9 % (11.9-15.9) H 05/21/20 05:55 Plt Count 92 K/MM3 (134-434) L D 05/21/20 05:55 MPV 8.3 fl (7.5-11.1) 05/21/20 05:55 Absolute Neuts (auto) 12.0 K/mm3 (1.5-8.0) H 05/21/20 05:55 Neutrophils % 4.5 % (42.8-82.8) L 05/21/20 05:55 Neutrophils % (Manual) 4.2 % (42.8-82.8) L 05/20/20 06:30 Band Neutrophils % 0.0 % 05/20/20 06:30 Lymphocytes % 91.2 % (8-40) H 05/21/20 05:55 Lymphocytes % (Manual) 89.6 % (8-40) H* 05/20/20 06:30 Monocytes % 4.3 % (3.8-10.2) D 05/21/20 05:55 Monocytes % (Manual) 0 % (3.8-10.2) L D 05/20/20 06:30 Eosinophils % 0.0 % (0-4.5) D 05/21/20 05:55 Eosinophils % (Manual) 0.0 % (0-4.5) 05/20/20 06:30 Basophils % 0.0 % (0-2.0) 05/21/20 05:55 Basophils % (Manual) 0.0 % (0-2.0) 05/20/20 06:30 Myelocytes % (Man) 0 % (0-2) 05/20/20 06:30 Promyelocytes % (Man) 0 % (0-2) 05/20/20 06:30 Blast Cells % (Manual) 0 % (0-0) D 05/20/20 06:30 Nucleated RBC % 0 % (0-0) 05/21/20 05:55 Metamyelocytes 0 % (0-2) 05/20/20 06:30 Differential Comment See commed 05/19/20 09:37 Hypochromia 0 05/20/20 06:30 Toxic Granulation 2+ 05/20/20 06:30 Platelet Estimate Decreased 05/20/20 06:30 Polychromasia 1+ 05/20/20 06:30 Poikilocytosis 1+ 05/20/20 06:30 Anisocytosis 1+ 05/20/20 06:30 Microcytosis 1+ 05/20/20 06:30 Macrocytosis 0 05/20/20 06:30 Tear Drop Cells 1+ 05/20/20 06:30 Ovalocytes 1+ 05/20/20 06:30 [place] Cells 1+ 05/20/20 06:30 Acanthocytes (Spur) 1+ 05/20/20 06:30 PT with INR 62.60 SEC (9.7-13.0) H 05/21/20 05:55 INR 5.44 (0.83-1.09) H* 05/21/20 05:55 PTT (Actin FS) 37.4 SECONDS (25.2-36.5) H 05/19/20 09:37 D-Dimer 1073 ng/ml (0-500) H 05/21/20 05:55 VBG pH 7.399 (7.310-7.410) 05/19/20 09:31 POC VBG pCO2 33.1 mmHg (38-52) L 05/19/20 09:31 POC VBG pO2 22.5 mmHg (28-48) L 05/19/20 09:31 VBG HCO3 20.0 mmol/L (23-29) L 05/19/20 09:31 VBG O2 Sat (Manjula) 39.5 % (70-80) L 05/19/20 09:31 VBG Base Excess -4.0 mmol/L (-2-2) L 05/19/20 09:31 Sodium 140 mmol/L (136-145) 05/21/20 05:55 Potassium 4.1 mmol/L (3.5-5.1) 05/21/20 05:55 Chloride 107 mmol/L (98-107) 05/21/20 05:55 Carbon Dioxide 24 mmol/L (21-32) 05/21/20 05:55 Anion Gap 9 MMOL/L (8-16) 05/21/20 05:55 BUN 32.1 mg/dL (7-18) H 05/21/20 05:55 Creatinine 0.8 mg/dL (0.55-1.3) 05/21/20 05:55 Est GFR (CKD-EPI)AfAm 101.28 05/21/20 05:55 Est GFR (CKD-EPI)NonAf 87.38 05/21/20 05:55 POC Glucometer 120 UNITS (80-120) 05/20/20 18:53 Random Glucose 119 mg/dL (74-106) H 05/21/20 05:55 Lactic Acid 2.0 mmol/L (0.4-2.0) 05/19/20 09:57 Calcium 8.8 mg/dL (8.5-10.1) 05/21/20 05:55 Phosphorus 2.9 mg/dL (2.5-4.9) 05/21/20 05:55 Magnesium 2.6 mg/dL (1.8-2.4) H 05/21/20 05:55 Ferritin 1022.5 ng/ml (8-388) H 05/20/20 06:30 Total Bilirubin 0.7 mg/dL (0.2-1) 05/21/20 05:55 AST 19 U/L (15-37) 05/21/20 05:55 ALT 15 U/L (13-61) 05/21/20 05:55 Alkaline Phosphatase 76 U/L (45-117) 05/21/20 05:55 LD Total 369 U/L (87-246) H 05/20/20 06:30 Creatine Kinase 68 U/L (26-308) 05/19/20 09:57 Troponin I < 0.02 ng/ml (0.00-0.05) 05/19/20 09:57 C-Reactive Protein 16.4 MG/DL (0.00-0.3) H 05/21/20 05:55 Total Protein 5.9 g/dl (6.4-8.2) L 05/21/20 05:55 Albumin 3.0 g/dl (3.4-5.0) L 05/21/20 05:55 Urine Color Yellow 05/19/20 09:37 Urine Appearance Clear 05/19/20 09:37 Urine pH 5.0 (5.0-8.0) 05/19/20 09:37 Ur Specific [place] 1.027 (1.010-1.035) 05/19/20 09:37 Urine Protein 3+ (NEGATIVE) H 05/19/20 09:37 Urine Glucose (UA) Negative (NEGATIVE) 05/19/20 09:37 Urine Ketones Negative (NEGATIVE) 05/19/20 09:37 Urine Blood Trace (NEGATIVE) 05/19/20 09:37 Urine Nitrite Negative (NEGATIVE) 05/19/20 09:37 Urine Bilirubin Negative (NEGATIVE) 05/19/20 09:37 Urine Urobilinogen 1.0 mg/dL (0.2-1.0) 05/19/20 09:37 Ur Leukocyte Esterase Negative (NEGATIVE) 05/19/20 09:37 Urine WBC (Auto) 9 /uL (0-25.8) 05/19/20 09:37 Urine RBC (Auto) 8 /uL (0-23.9) 05/19/20 09:37 Urine Casts (Auto) 3 /uL (0-3.1) 05/19/20 09:37 U Epithel Cells (Auto) 13 /uL (0-25.1) 05/19/20 09:37 Urine Bacteria (Auto) 2 /uL (0-1359) 05/19/20 09:37 COVID-19 (DAWIT) Detected (Not Detected) H 05/19/20 09:37 Influenza A (Rapid) Negative (Negative) 05/19/20 14:45 Influenza B (Rapid) Negative (Negative) 05/19/20 14:45 Blood Type A POSITIVE 05/19/20 11:23 Antibody Screen Negative 05/19/20 11:23 EKG: afib, vr 120s, old RBBB, nl qtc manually, no sig change prior tele: afib, vr 100s-120s cxr: bl infiltrates echo 11/2018: nl lv/rv, maritza, mod-sev mr/tr, avr wnl, rvsp 30-40; on review by Dr Olivera and Hamida, MR and TR do not appear severe a/p: 74M h/o CHF, CLL, CVA, s/p bioAVR, afib p/w sob. covid PNA, hypoxia, sob: -no signs chf, acs -cont abx per ID. ecg with rbbb so qtc not as reliable but manually calculated appears normal, monitor on tele. -cont supplemental o2 s/p bioAVR - nl fcn on recent echo - cont ac per inr afib - rvr here likely due to infection, resp distress. Cont lopressor po and iv prn. So far bp has been stable. Cont tele. - cont coumadin per inr (currently holding due to inr supratherapeutic) chronic diastolic HF - appears euvolemic presently - sob sec to PNA CLL, thrombocytopenia - manage per onc
--- NOTE | 2020-05-21 15:34 | PN ---
Teaching Attending Note Name of Resident: Santy Kumar ATTENDING PHYSICIAN STATEMENT I saw and evaluated the patient. I reviewed the resident's note and discussed the case with the resident. I agree with the resident's findings and plan as documented. SUBJECTIVE: Patient seen and examined in the ICU. Remains tachypneic on HFOT and 100% NRBM. Convalescent plasma being ordered. No CP. Intake & Output 05/19/20 05/19/20 05/20/20 05/21/20 00:59 23:59 23:59 23:59 Intake Total 650 720 Output Total 940 870 Balance -290 -150 Weight 180 lb Last Vital Signs Temp Pulse Resp BP Pulse Ox 97.5 F L 110 H 28 H 130/85 93 L 05/21/20 14:00 05/21/20 14:00 05/21/20 14:00 05/21/20 14:00 05/21/20 14:00 Active Medications Dexamethasone Sodium Phosphate (Decadron Injection -) 6 mg IVPUSH DAILY [facility] Last Admin: 05/21/20 10:05 Dose: 6 mg Documented by: Non-Formulary Medication 100 (mg/ Sodium Chloride) 250 mls @ 250 mls/hr IVPB DAILY [facility] Stop: 05/23/20 10:59 Last Admin: 05/21/20 10:36 Dose: 250 mls/hr Documented by: Doxycycline Hyclate 100 mg/ (Dextrose) 100 mls @ 50 mls/hr IVPB BID [facility] Last Admin: 05/21/20 10:04 Dose: 50 mls/hr Documented by: Ceftriaxone Sodium 2 gm/ (Dextrose) 100 mls @ 100 mls/hr IVPB DAILY [facility]; Protocol Last Admin: 05/21/20 10:05 Dose: 100 mls/hr Documented by: Metoprolol Tartrate (Lopressor -) 25 mg PO BID [facility] Last Admin: 05/21/20 10:05 Dose: 25 mg Documented by: Metoprolol Tartrate (Lopressor Injection -) 5 mg IVPUSH Q4H PRN PRN Reason: TACHYCARDIA Pantoprazole Sodium (Protonix Iv) 40 mg IVPUSH DAILY [facility] Last Admin: 05/21/20 10:06 Dose: 40 mg Documented by: Constitutional: Yes:tachypneic at rest Eyes: Yes: WNL, Conjunctiva Clear, EOM Intact HENT: Yes: WNL, Atraumatic, Normocephalic Neck: Yes: WNL, Supple, Trachea Midline Cardiovascular: Yes: WNL, Tachycardia, Pulse Irregular, S1, S2 Respiratory: Yes: Cough, Poor Air Entry, SOB on Exertion, Other (HFNC) Gastrointestinal: Yes: WNL, Normal Bowel Sounds, Soft ...Rectal Exam: Yes: Deferred Renal/: Yes: WNL Breast(s): Yes: WNL Musculoskeletal: Yes: Muscle Weakness Extremities: Yes: WNL Edema: No Peripheral Pulses WNL: Yes Integumentary: Yes: WNL ...Motor Strength: WNL Psychiatric: Yes: WNL Labs: Laboratory Results - last 24 hr 05/19/20 05/20/20 05/21/20 09:37 18:53 05:55 WBC RBC Hgb Hct MCV MCH MCHC RDW Plt Count MPV Absolute Neuts (auto) Neutrophils % Neutrophils % (Manual) Band Neutrophils % Lymphocytes % Lymphocytes % (Manual) Monocytes % Monocytes % (Manual) Eosinophils % Eosinophils % (Manual) Basophils % Basophils % (Manual) Myelocytes % (Man) Promyelocytes % (Man) Blast Cells % (Manual) Nucleated RBC % Metamyelocytes Hypochromia Platelet Estimate Polychromasia Poikilocytosis Anisocytosis Microcytosis Macrocytosis PT with INR INR D-Dimer Sodium 140 Potassium 4.1 Chloride 107 Carbon Dioxide 24 Anion Gap 9 BUN 32.1 H Creatinine 0.8 Est GFR (CKD-EPI)AfAm 101.28 Est GFR (CKD-EPI)NonAf 87.38 POC Glucometer 120 Random Glucose 119 H Calcium 8.8 Phosphorus 2.9 Magnesium 2.6 H Total Bilirubin 0.7 AST 19 ALT 15 Alkaline Phosphatase 76 C-Reactive Protein 16.4 H Total Protein 5.9 L Albumin 3.0 L COVID-19 (DAWIT) Detected H 05/21/20 05/21/20 05/21/20 05:55 05:55 05:55 WBC 266.5 H* RBC 4.42 Hgb 11.9 Hct 38.8 MCV 87.7 MCH 26.9 MCHC 30.7 L RDW 17.9 H Plt Count 92 L D MPV 8.3 Absolute Neuts (auto) 12.0 H Neutrophils % 4.5 L Neutrophils % (Manual) 2.0 L Band Neutrophils % 0.0 Lymphocytes % 91.2 H Lymphocytes % (Manual) 93.8 H* Monocytes % 4.3 D Monocytes % (Manual) 2 L D Eosinophils % 0.0 D Eosinophils % (Manual) 0.0 Basophils % 0.0 Basophils % (Manual) 0.0 Myelocytes % (Man) 0 Promyelocytes % (Man) 0 Blast Cells % (Manual) 0 Nucleated RBC % 0 Metamyelocytes 0 Hypochromia 0 Platelet Estimate Decreased Polychromasia 0 Poikilocytosis 1+ Anisocytosis 1+ Microcytosis 1+ Macrocytosis 1+ PT with INR 62.60 H INR 5.44 H* D-Dimer 1073 H Sodium Potassium Chloride Carbon Dioxide Anion Gap BUN Creatinine Est GFR (CKD-EPI)AfAm Est GFR (CKD-EPI)NonAf POC Glucometer Random Glucose Calcium Phosphorus Magnesium Total Bilirubin AST ALT Alkaline Phosphatase C-Reactive Protein Total Protein Albumin COVID-19 (DAWIT) Imaging - Results Chest X-ray: Image Reviewed (Personal read: 05/19 Bilateral opacities) Problem List - Problems (1) COVID-19 with multiple comorbidities Code(s): U07.1 - COVID-19 (2) Acute hypoxemic respiratory failure Code(s): J96.01 - ACUTE RESPIRATORY FAILURE WITH HYPOXIA (3) Abnormal INR Code(s): R79.1 - ABNORMAL COAGULATION PROFILE (4) Atrial fibrillation Code(s): I48.91 - UNSPECIFIED ATRIAL FIBRILLATION Qualifiers: Atrial fibrillation type: chronic (5) CLL (chronic lymphocytic leukemia) Code(s): C91.10 - CHRONIC LYMPHOCYTIC LEUK OF B-CELL TYPE NOT ACHIEVE REMIS (6) Thrombocytopenia Code(s): D69.6 - THROMBOCYTOPENIA, UNSPECIFIED (7) Weakness Code(s): R53.1 - WEAKNESS Assessment/Plan HFOT 100% NRBM Remdesivir : Anticipate giving 10 days in total Pulmonary toileting Heme evaluation noted: convalescent plasma ordered ABX per ID Strict I/O Minimize IVF PO with extreme caution Follow INR : start Eliquis or Lovenox once INR < 3 PPI Continue ICU monitoring for tenuous overall status Dr Cano
--- NOTE | 2020-05-21 15:37 | PN ---
Progress Note (short form) - Note Progress Note: hypoxia unchanged on NRB and high flow oxygen alert Vital Signs Period Temp Pulse Resp BP Sys/Estevez Pulse Ox Last 24 Hr 97.5 F-98.7 F 97-127 19-31 93-137/49-92 84-95 cor-rrr llungs decrased bs at bases abd soft,nt ext no edema CBC, BMP 05/21/20 05:55 05/21/20 05:55 Microbiology 05/19/20 09:37 Blood - Peripheral Venous Blood Culture - Preliminary NO GROWTH OBTAINED AFTER 48 HOURS, INCUBATION TO CONTINUE FOR 3 DAYS. 05/19/20 09:37 Blood - Peripheral Venous Blood Culture - Preliminary NO GROWTH OBTAINED AFTER 48 HOURS, INCUBATION TO CONTINUE FOR 3 DAYS. 05/19/20 09:37 Urine - Urine Clean Catch Urine Culture - Final NO GROWTH OBTAINED 05/19/20 14:00 Urine For Antigen Detection Legionella Antigen - Preliminary 05/19/20 14:00 Urine For Antigen Detection Streptococcus pneumoniae Antigen (M - Preliminary influenza antigen negative a/p acute hypoxemic resp failure covid pneumonia CLL bioavr overall prognosis is guarded continue dexamethasone and remdesivir day #3 continue rocephin/doxy for now convalescent plasma ordered follow inflammatory markers d/w physician office clin asst Problem List - Problems (1) Acute hypoxemic respiratory failure Code(s): J96.01 - ACUTE RESPIRATORY FAILURE WITH HYPOXIA (2) Bilateral pneumonia Code(s): J18.9 - PNEUMONIA, UNSPECIFIED ORGANISM (3) COVID-19 with multiple comorbidities Code(s): U07.1 - COVID-19 (4) Prolonged Q-T interval on ECG Code(s): R94.31 - ABNORMAL ELECTROCARDIOGRAM [ECG] [EKG] (5) CLL (chronic lymphocytic leukemia) Code(s): C91.10 - CHRONIC LYMPHOCYTIC LEUK OF B-CELL TYPE NOT ACHIEVE REMIS
--- NOTE | 2020-05-21 18:07 | PATH ---
Surgical Pathology Report Patient Name: SHARON MARCUM Med. Rec. 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 Specimen(s) Received PERIPHERAL BLOOD 1 LAVENDER TOP Clinical History Lymphocytosis, history of CLL Final Diagnosis COMPREHENSIVE FLOW PANEL performed and interpreted at [facility], [place], [place]([id number]) shows the following: INTERPRETATION: Chronic lymphocytic leukemia (CLL). COMMENT: History of CLL is noted. Correlation with FISH analysis (CLL panel) and molecular studies (IgVH mutation analysis) suggested. Phenotype: A monoclonal B-cell population lambda light-chain restricted is detected comprising approximately 95% of the lymphocytes and 87% of the analyzed WBCs. Lambda Light chain restriction was determined by cytoplasmic staining for kappa and lambda. They are CD20+(dim), CD19+, CD23+, co-express CD5 and lack CD10. They are negative for CD38. Cytomorphology: The smear shows predominantly small mature lymphocytes with clumped chromatin morphologically consistent with CLL. See [facility] report for additional details. Smear findings were discussed with Dr. Cano on 05/20/2020. Report faxed to Dr. Cano office on 05/21/20 Electronically Signed Le To M.D.
[2020-05-21] MEDS ORDERED: PT OWN MED DRAWER 7, Y5N ONE (20:41)
[2020-05-21] MEDS ORDERED: MELATONIN 5 MG TABLETS PO ONE (21:46)
[2020-05-22 06:34] LABS: BASO % 0.1 % (0-2.0); HEMATOCRIT 36.6 % (35.4-49); HEMOGLOBIN 11.5 GM/dL (11.7-16.9); LYMPH % 93.2 % (8-40); MCH 27.7 pg (25.7-33.7); MCHC 31.4 g/dl (32.0-35.9); MEAN CELL VOLUME 88.3 fl (80-96); MEAN PLT VOLUME 8.5 fl (7.5-11.1); MONO % 1.8 % (3.8-10.2); NEUT % 4.9 % (42.8-82.8); PLATELET COUNT 85 K/MM3 (134-434); RBC 4.14 M/mm3 (4.00-5.60)
[2020-05-22 06:39] LABS: PROTHROMBIN TIME (PATIENT) 57.4 SEC (9.7-13.0)
[2020-05-22 06:41] LABS: WHITE BLOOD COUNT 188.9 K/mm3 (4.0-10.0)
[2020-05-22 06:54] LABS: POTASSIUM 4.2 mmol/L (3.5-5.1)
[2020-05-22 06:59] LABS: ALBUMIN 2.9 g/dl (3.4-5.0); BLOOD UREA NITROGEN 37.2 mg/dL (7-18); CALCIUM 8.3 mg/dL (8.5-10.1); MAGNESIUM 2.7 mg/dL (1.8-2.4)
[2020-05-22 07:02] LABS: CREATININE 0.8 mg/dL (0.55-1.3)
[2020-05-22 07:03] LABS: BILIRUBIN,TOTAL 0.7 mg/dL (0.2-1); PHOSPHOROUS 3.4 mg/dL (2.5-4.9); TOT PROT 5.6 g/dl (6.4-8.2)
[2020-05-22] MEDS ORDERED: ALBUTEROL SO4 HFA INHALER IH PRN (09:31)
[2020-05-22 09:38] LABS: INR 4.89 (0.83-1.09)
--- NOTE | 2020-05-22 09:41 | PN ---
Teaching Attending Note Name of Resident: Santy Kumar ATTENDING PHYSICIAN STATEMENT I saw and evaluated the patient. I reviewed the resident's note and discussed the case with the resident. I agree with the resident's findings and plan as documented. SUBJECTIVE: Patient seen and examined in the ICU. Remains tachypneic on HFOT and 100% NRBM. Increased WOB today. Patient has been non-compliant with prone positioning despite multiple times of re-enforcement. Desaturates when supine. Episode of desaturation to 79% when he took his mask off to eat. Denies CP. Intake & Output 05/19/20 05/20/20 05/21/20 05/22/20 23:59 23:59 23:59 23:59 Intake Total 650 1432 Output Total 940 1470 Balance -290 -38 Weight 180 lb 180 lb Last Vital Signs Temp Pulse Resp BP Pulse Ox 98 F 119 H 22 H 135/86 87 L 05/22/20 04:00 05/22/20 06:00 05/22/20 06:00 05/22/20 06:00 05/22/20 06:00 Active Medications Dexamethasone Sodium Phosphate (Decadron Injection -) 6 mg IVPUSH DAILY [facility] Last Admin: 05/21/20 10:05 Dose: 6 mg Documented by: Non-Formulary Medication 100 (mg/ Sodium Chloride) 250 mls @ 250 mls/hr IVPB DAILY [facility] Stop: 05/23/20 10:59 Last Admin: 05/21/20 10:36 Dose: 250 mls/hr Documented by: Doxycycline Hyclate 100 mg/ (Dextrose) 100 mls @ 50 mls/hr IVPB BID [facility] Last Admin: 05/21/20 21:19 Dose: 50 mls/hr Documented by: Ceftriaxone Sodium 2 gm/ (Dextrose) 100 mls @ 100 mls/hr IVPB DAILY [facility]; Protocol Last Admin: 05/21/20 10:05 Dose: 100 mls/hr Documented by: Metoprolol Tartrate (Lopressor -) 25 mg PO BID [facility] Last Admin: 05/21/20 21:19 Dose: 25 mg Documented by: Metoprolol Tartrate (Lopressor Injection -) 5 mg IVPUSH Q4H PRN PRN Reason: TACHYCARDIA Pantoprazole Sodium (Protonix Iv) 40 mg IVPUSH DAILY [facility] Last Admin: 11/03/20 10:06 Dose: 40 mg Documented by: Constitutional: Yes:tachypneic at rest Eyes: Yes: WNL, Conjunctiva Clear, EOM Intact HENT: Yes: WNL, Atraumatic, Normocephalic Neck: Yes: WNL, Supple, Trachea Midline Cardiovascular: Yes: WNL, Tachycardia, Pulse Irregular, S1, S2 Respiratory: Yes: Cough, Poor Air Entry, SOB on Exertion, Other (HFNC) Gastrointestinal: Yes: WNL, Normal Bowel Sounds, Soft ...Rectal Exam: Yes: Deferred Renal/: Yes: WNL Breast(s): Yes: WNL Musculoskeletal: Yes: Muscle Weakness Extremities: Yes: WNL Edema: No Peripheral Pulses WNL: Yes Integumentary: Yes: WNL ...Motor Strength: WNL Psychiatric: Yes: WNL Labs: Laboratory Results - last 24 hr 05/21/20 05/22/20 05/22/20 05:55 06:00 06:00 WBC 188.9 H* RBC 4.14 Hgb 11.5 L Hct 36.6 MCV 88.3 MCH 27.7 MCHC 31.4 L RDW 18.0 H Plt Count 85 L MPV 8.5 Absolute Neuts (auto) 9.3 H Neutrophils % 4.9 L Neutrophils % (Manual) 2.0 L Band Neutrophils % 0.0 Lymphocytes % 93.2 H Lymphocytes % (Manual) 93.8 H* Monocytes % 1.8 L Monocytes % (Manual) 2 L D Eosinophils % 0.0 Eosinophils % (Manual) 0.0 Basophils % 0.1 D Basophils % (Manual) 0.0 Myelocytes % (Man) 0 Promyelocytes % (Man) 0 Blast Cells % (Manual) 0 Nucleated RBC % 0 0 Metamyelocytes 0 Hypochromia 0 Platelet Estimate Decreased Polychromasia 0 Poikilocytosis 1+ Anisocytosis 1+ Microcytosis 1+ Macrocytosis 1+ PT with INR INR Sodium 141 Potassium 4.2 Chloride 108 H Carbon Dioxide 26 Anion Gap 8 BUN 37.2 H Creatinine 0.8 Est GFR (CKD-EPI)AfAm 101.28 Est GFR (CKD-EPI)NonAf 87.38 Random Glucose 119 H Calcium 8.3 L Phosphorus 3.4 Magnesium 2.7 H Total Bilirubin 0.7 AST 19 ALT 17 Alkaline Phosphatase 76 C-Reactive Protein 11.6 H Total Protein 5.6 L Albumin 2.9 L 05/22/20 06:00 WBC RBC Hgb Hct MCV MCH MCHC RDW Plt Count MPV Absolute Neuts (auto) Neutrophils % Neutrophils % (Manual) Band Neutrophils % Lymphocytes % Lymphocytes % (Manual) Monocytes % Monocytes % (Manual) Eosinophils % Eosinophils % (Manual) Basophils % Basophils % (Manual) Myelocytes % (Man) Promyelocytes % (Man) Blast Cells % (Manual) Nucleated RBC % Metamyelocytes Hypochromia Platelet Estimate Polychromasia Poikilocytosis Anisocytosis Microcytosis Macrocytosis PT with INR 57.40 H INR 4.89 H* Sodium Potassium Chloride Carbon Dioxide Anion Gap BUN Creatinine Est GFR (CKD-EPI)AfAm Est GFR (CKD-EPI)NonAf Random Glucose Calcium Phosphorus Magnesium Total Bilirubin AST ALT Alkaline Phosphatase C-Reactive Protein Total Protein Albumin Imaging - Results Chest X-ray: Image Reviewed (Personal read: 05/19 Bilateral opacities) Problem List - Problems (1) COVID-19 with multiple comorbidities Code(s): U07.1 - COVID-19 (2) Acute hypoxemic respiratory failure Code(s): J96.01 - ACUTE RESPIRATORY FAILURE WITH HYPOXIA (3) Abnormal INR Code(s): R79.1 - ABNORMAL COAGULATION PROFILE (4) Atrial fibrillation Code(s): I48.91 - UNSPECIFIED ATRIAL FIBRILLATION Qualifiers: Atrial fibrillation type: chronic (5) CLL (chronic lymphocytic leukemia) Code(s): C91.10 - CHRONIC LYMPHOCYTIC LEUK OF B-CELL TYPE NOT ACHIEVE REMIS (6) Thrombocytopenia Code(s): D69.6 - THROMBOCYTOPENIA, UNSPECIFIED (7) Weakness Code(s): R53.1 - WEAKNESS Assessment/Plan Trial of NIPPV if patient is willing Patient advised that prone and positional change is extremely important and if not performed can lead to respiratory failure HFOT / 100% NRBM Remdesivir : Anticipate giving 10 days in total Pulmonary toileting ABX per ID Strict I/O Minimize IVF PO with extreme caution Follow INR : start Eliquis or Lovenox once INR < 3 PPI Continue ICU monitoring for tenuous overall status Dr Cano
--- NOTE | 2020-05-22 09:46 | PN ---
Physical Exam: SUBJECTIVE: Patient seen and examined at bedside. The patient still complains about being hungry. He is not being compliant with self-proning. Patient advised to self-prone. Bipap order entered as patient sometimes has his oxygen saturation dip down into the low 80's or higher 70's; although, usually his oxygen saturation is in the 90's. The son was called today to ask the son to also press on to the patient the importance of self-proning. The son was also told of the decision to start BiPap. CRP decreased today from 16.4 yesterday to 11.6 today. The oxygen saturation was also noted to sometimes go up to 99% on the monitor and to dip down into the low 80's less frequently than what was observed on the monitors yesterday. C-plasma was given yesterday evening. OBJECTIVE: Vital Signs Period Temp Pulse Resp BP Sys/Estevez Pulse Ox Last 24 Hr 97.5 F-98 F 97-119 21-31 95-140/54-103 87-96 GENERAL: The patient is awake, alert, and fully oriented, in mild distress. HEAD: Normal with no signs of trauma. EYES: PERRL, extraocular movements intact. No ptosis. ENT: Ears normal, nares patent, oropharynx clear without exudates, mildly moist mucous membranes. NECK: Trachea midline, full range of motion, supple. LUNGS: Decreased breath sounds. HEART: Irregular rhythm. Tachycardic. ABDOMEN: Nondistended, normoactive bowel sounds. EXTREMITIES: 2+ pulses, warm, well-perfused, no edema. NEUROLOGICAL: Normal speech, gait not observed. PSYCH: Normal mood, normal affect. SKIN: Warm, dry, normal turgor, no rashes or lesions noted Laboratory Results - last 24 hr 05/21/20 05/22/20 05/22/20 05:55 06:00 06:00 WBC 188.9 H* RBC 4.14 Hgb 11.5 L Hct 36.6 MCV 88.3 MCH 27.7 MCHC 31.4 L RDW 18.0 H Plt Count 85 L MPV 8.5 Absolute Neuts (auto) 9.3 H Neutrophils % 4.9 L Neutrophils % (Manual) 2.0 L Band Neutrophils % 0.0 Lymphocytes % 93.2 H Lymphocytes % (Manual) 93.8 H* Monocytes % 1.8 L Monocytes % (Manual) 2 L D Eosinophils % 0.0 Eosinophils % (Manual) 0.0 Basophils % 0.1 D Basophils % (Manual) 0.0 Myelocytes % (Man) 0 Promyelocytes % (Man) 0 Blast Cells % (Manual) 0 Nucleated RBC % 0 0 Metamyelocytes 0 Hypochromia 0 Platelet Estimate Decreased Polychromasia 0 Poikilocytosis 1+ Anisocytosis 1+ Microcytosis 1+ Macrocytosis 1+ PT with INR INR Sodium 141 Potassium 4.2 Chloride 108 H Carbon Dioxide 26 Anion Gap 8 BUN 37.2 H Creatinine 0.8 Est GFR (CKD-EPI)AfAm 101.28 Est GFR (CKD-EPI)NonAf 87.38 Random Glucose 119 H Calcium 8.3 L Phosphorus 3.4 Magnesium 2.7 H Total Bilirubin 0.7 AST 19 ALT 17 Alkaline Phosphatase 76 C-Reactive Protein 11.6 H Total Protein 5.6 L Albumin 2.9 L 05/22/20 06:00 WBC RBC Hgb Hct MCV MCH MCHC RDW Plt Count MPV Absolute Neuts (auto) Neutrophils % Neutrophils % (Manual) Band Neutrophils % Lymphocytes % Lymphocytes % (Manual) Monocytes % Monocytes % (Manual) Eosinophils % Eosinophils % (Manual) Basophils % Basophils % (Manual) Myelocytes % (Man) Promyelocytes % (Man) Blast Cells % (Manual) Nucleated RBC % Metamyelocytes Hypochromia Platelet Estimate Polychromasia Poikilocytosis Anisocytosis Microcytosis Macrocytosis PT with INR 57.40 H INR 4.89 H* Sodium Potassium Chloride Carbon Dioxide Anion Gap BUN Creatinine Est GFR (CKD-EPI)AfAm Est GFR (CKD-EPI)NonAf Random Glucose Calcium Phosphorus Magnesium Total Bilirubin AST ALT Alkaline Phosphatase C-Reactive Protein Total Protein Albumin Active Medications Generic Name Dose Route Start Last Admin Trade Name Freq PRN Reason Stop Dose Admin Albuterol Sulfate 2 puff 05/22/20 09:31 Ventolin Hfa Inhaler - IH Q4H PRN SHORT OF BREATH/WHEEZING Dexamethasone Sodium Phosphate 6 mg 05/20/20 10:00 05/21/20 10:05 Decadron Injection - IVPUSH 6 mg DAILY ELIS Administration Non-Formulary Medication 100 250 mls @ 250 mls/hr 05/20/20 12:07 05/21/20 10:36 mg/ Sodium Chloride IVPB 05/23/20 10:59 250 mls/hr DAILY ELIS Administration Doxycycline Hyclate 100 mg/ 100 mls @ 50 mls/hr 05/19/20 13:15 05/21/20 21:19 Dextrose IVPB 50 mls/hr BID ELIS Administration Ceftriaxone Sodium 2 gm/ 100 mls @ 100 mls/hr 05/20/20 10:00 05/21/20 10:05 Dextrose IVPB 100 mls/hr DAILY ELIS Administration Protocol Metoprolol Tartrate 25 mg 05/20/20 22:00 05/21/20 21:19 Lopressor - PO 25 mg BID ELIS Administration Metoprolol Tartrate 5 mg 05/20/20 12:22 Lopressor Injection - IVPUSH Q4H PRN TACHYCARDIA Pantoprazole Sodium 40 mg 05/19/20 14:15 05/21/20 10:06 Protonix Iv IVPUSH 40 mg DAILY ELIS Administration ASSESSMENT/PLAN: 74 year old male patient with past medical history that includes HTN, hyperlipidemia, atrial fibrillation (on coumadin), aortic stenosis s/p bioAVR, h/o CVA, CLL (not on meds for last 2 months per his [facility] oncologist), who is admitted to the ICU for hypoxia 2/2 COVID. NEURO - A&Ox3 PULM - Patient's oxygen saturation falls when the patient becomes anxious, so patient is told to relax - on high flow nasal cannula at 95% with non-rebreather mask on top at 100% O2 - Patient is self-proning - Decadron 6mg IV daily - Remdesivir 100mg day 4 - C-plasma given yesterday - Ceftriaxone 2gm daily - Doxycycline 100mg BID - Nebulized Albuterol 2 puffs Q4H IH PRN - Bipap CARDIO - Monitoring on telemetry - Has Atrial Fibrillation - Lopressor 25mg BID PO - Also Lopressor 5mg IV Q4 PRN ID - COVID positive - Decadron 6mg IV daily - Remdesivir 100mg day 4 - C-plasma given yesterday - Ceftriaxone 2gm daily - Doxycycline 100mg BID DVT PPx - INR 4.89 with plan to start Eliquis once the INR < 3.0 FEN - Avoiding IV fluids due to risk of COVID induced pulmonary capillary leak - Monitor and replete electrolytes - Diet of Jello or Pudding, which are less likely to be aspirated if the patient breaths while eating due to shortness of breath Visit type - Emergency Visit Emergency Visit: Yes ED Registration Date: 05/19/20 Care time: The patient presented to the Emergency Department on the above date and was hospitalized for further evaluation of their emergent condition. - New Patient This patient is new to me today: No - Critical Care Critical Care patient: Yes Total Critical Care Time (in minutes): 40 Critical Care Statement: The care of this patient involved high complexity decision making to prevent further life threatening deterioration of the patie nt's condition and/or to evaluate & treat vital organ system(s) failure or risk of failure. - Discharge Referral Referred to [facility] Med [facility] No - Medication Review Med list reviewed for High Risk Meds patients 65 and older: Yes ATTENDING PHYSICIAN STATEMENT I saw and evaluated the patient. I reviewed the resident's note and discussed the case with the resident. I agree with the resident's findings and plan as documented. SUBJECTIVE: OBJECTIVE: ASSESSMENT AND PLAN:
[2020-05-22] MEDS ORDERED: DEXTROSE 5%-WATER 100 ML IVPB ONE (09:51)
[2020-05-22] MEDS: DOXYCYCLINE INJECTION 100 MG in DEXTROSE 5%-WATER - 100 ML IVPB SCH ×3 (10:00→21:42)
[2020-05-22] MEDS: CEFTRIAXONE 2 GM in DEXTROSE 5%-WATER 100 ML IVPB SCH (10:40)
[2020-05-22] MEDS: METOPROLOL TARTRATE 25 MG TABLET (FP) PO SCH ×2 (10:41→21:42)
[2020-05-22] MEDS: DEXAMETHASONE SOD PHOSPHATE 4 MG/1 ML VIAL IVPUSH SCH (10:41)
[2020-05-22] MEDS: PANTOPRAZOLE SODIUM 40 MG VIAL IVPUSH SCH (10:41)
[2020-05-22] MEDS: REMDESIVIR 100 MG in SODIUM CHLORIDE 230 ML IVPB SCH (11:00)
[2020-05-22] MEDS ORDERED: PT OWN MED DRAWER 7, Y5N ONE ×2 (12:25→19:56)
--- NOTE | 2020-05-22 13:12 | PN ---
Progress Note (short form) - Note Progress Note: cc: sob s: stable dyspnea, no chest pain, palps, dizziness, edema. Current Medications Generic Name Dose Route Start Last Admin Trade Name Anthony PRN Reason Stop Dose Admin Albuterol Sulfate 2 puff 05/22/20 09:31 Ventolin Hfa Inhaler - IH Q4H PRN SHORT OF BREATH/WHEEZING Dexamethasone Sodium Phosphate 6 mg 05/20/20 10:00 05/22/20 10:41 Decadron Injection - IVPUSH 6 mg DAILY ELIS Administration Non-Formulary Medication 100 250 mls @ 250 mls/hr 05/20/20 12:07 05/21/20 10:36 mg/ Sodium Chloride IVPB 05/23/20 10:59 250 mls/hr DAILY ELIS Administration Doxycycline Hyclate 100 mg/ 100 mls @ 50 mls/hr 05/19/20 13:15 05/22/20 10:40 Dextrose IVPB 50 mls/hr BID ELIS Administration Ceftriaxone Sodium 2 gm/ 100 mls @ 100 mls/hr 05/20/20 10:00 05/22/20 10:40 Dextrose IVPB 100 mls/hr DAILY ELIS Administration Protocol Metoprolol Tartrate 25 mg 05/20/20 22:00 05/22/20 10:41 Lopressor - PO 25 mg BID ELIS Administration Metoprolol Tartrate 5 mg 05/20/20 12:22 Lopressor Injection - IVPUSH Q4H PRN TACHYCARDIA Pantoprazole Sodium 40 mg 05/19/20 14:15 05/22/20 10:41 Protonix Iv IVPUSH 40 mg DAILY ELIS Administration Vital Signs Period Temp Pulse Resp BP Sys/Estevez Pulse Ox Last 24 Hr 97.5 F-98 F 97-119 21-30 95-140/54-103 87-96 Constitutional: Yes: Well Nourished, No Distress, Calm Eyes: Yes: Conjunctiva Clear, EOM Intact HENT: Yes: Atraumatic, Normocephalic Neck: Yes: Supple, Trachea Midline Respiratory: Yes:scattered rhonchi, nl eff Gastrointestinal: Yes: Normal Bowel Sounds, Soft Cardiovascular: Yes: irreg, tachy JVD: No Carotid Bruit: No Heart Sounds: Yes: S1, S2 Murmur: Yes: Systolic Murmur, Grade 2 Extremities: No: Cold Edema: No Integumentary: No: Jaundice Neurological: Yes: Alert, Oriented Psychiatric: No: Agitated Laboratory Last Values WBC 188.9 K/mm3 (4.0-10.0) H* 05/22/20 06:00 RBC 4.14 M/mm3 (4.00-5.60) 05/22/20 06:00 Hgb 11.5 GM/dL (11.7-16.9) L 05/22/20 06:00 Hct 36.6 % (35.4-49) 05/22/20 06:00 MCV 88.3 fl (80-96) 05/22/20 06:00 MCH 27.7 pg (25.7-33.7) 05/22/20 06:00 MCHC 31.4 g/dl (32.0-35.9) L 05/22/20 06:00 RDW 18.0 % (11.9-15.9) H 05/22/20 06:00 Plt Count 85 K/MM3 (134-434) L 05/22/20 06:00 MPV 8.5 fl (7.5-11.1) 05/22/20 06:00 Absolute Neuts (auto) 9.3 K/mm3 (1.5-8.0) H 05/22/20 06:00 Neutrophils % 4.9 % (42.8-82.8) L 05/22/20 06:00 Neutrophils % (Manual) 2.0 % (42.8-82.8) L 05/21/20 05:55 Band Neutrophils % 0.0 % 05/21/20 05:55 Lymphocytes % 93.2 % (8-40) H 05/22/20 06:00 Lymphocytes % (Manual) 93.8 % (8-40) H* 05/21/20 05:55 Monocytes % 1.8 % (3.8-10.2) L 05/22/20 06:00 Monocytes % (Manual) 2 % (3.8-10.2) L D 05/21/20 05:55 Eosinophils % 0.0 % (0-4.5) 05/22/20 06:00 Eosinophils % (Manual) 0.0 % (0-4.5) 05/21/20 05:55 Basophils % 0.1 % (0-2.0) D 05/22/20 06:00 Basophils % (Manual) 0.0 % (0-2.0) 05/21/20 05:55 Myelocytes % (Man) 0 % (0-2) 05/21/20 05:55 Promyelocytes % (Man) 0 % (0-2) 05/21/20 05:55 Blast Cells % (Manual) 0 % (0-0) 05/21/20 05:55 Nucleated RBC % 0 % (0-0) 05/22/20 06:00 Metamyelocytes 0 % (0-2) 05/21/20 05:55 Differential Comment See commed 05/19/20 09:37 Hypochromia 0 05/21/20 05:55 Toxic Granulation 2+ 05/20/20 06:30 Platelet Estimate Decreased 05/21/20 05:55 Polychromasia 0 05/21/20 05:55 Poikilocytosis 1+ 05/21/20 05:55 Anisocytosis 1+ 05/21/20 05:55 Microcytosis 1+ 05/21/20 05:55 Macrocytosis 1+ 05/21/20 05:55 Tear Drop Cells 1+ 05/20/20 06:30 Ovalocytes 1+ 05/20/20 06:30 Stanley Cells 1+ 05/20/20 06:30 Acanthocytes (Spur) 1+ 05/20/20 06:30 PT with INR 57.40 SEC (9.7-13.0) H 05/22/20 06:00 INR 4.89 (0.83-1.09) H* 05/22/20 06:00 PTT (Actin FS) 37.4 SECONDS (25.2-36.5) H 05/19/20 09:37 D-Dimer 1073 ng/ml (0-500) H 05/21/20 05:55 VBG pH 7.399 (7.310-7.410) 05/19/20 09:31 POC VBG pCO2 33.1 mmHg (38-52) L 05/19/20 09:31 POC VBG pO2 22.5 mmHg (28-48) L 05/19/20 09:31 VBG HCO3 20.0 mmol/L (23-29) L 05/19/20 09:31 VBG O2 Sat (Manjula) 39.5 % (70-80) L 05/19/20 09:31 VBG Base Excess -4.0 mmol/L (-2-2) L 05/19/20 09:31 Sodium 141 mmol/L (136-145) 05/22/20 06:00 Potassium 4.2 mmol/L (3.5-5.1) 05/22/20 06:00 Chloride 108 mmol/L (98-107) H 05/22/20 06:00 Carbon Dioxide 26 mmol/L (21-32) 05/22/20 06:00 Anion Gap 8 MMOL/L (8-16) 05/22/20 06:00 BUN 37.2 mg/dL (7-18) H 05/22/20 06:00 Creatinine 0.8 mg/dL (0.55-1.3) 05/22/20 06:00 Est GFR (CKD-EPI)AfAm 101.28 05/22/20 06:00 Est GFR (CKD-EPI)NonAf 87.38 05/22/20 06:00 POC Glucometer 120 UNITS (80-120) 05/20/20 18:53 Random Glucose 119 mg/dL (74-106) H 05/22/20 06:00 Lactic Acid 2.0 mmol/L (0.4-2.0) 05/19/20 09:57 Calcium 8.3 mg/dL (8.5-10.1) L 05/22/20 06:00 Phosphorus 3.4 mg/dL (2.5-4.9) 05/22/20 06:00 Magnesium 2.7 mg/dL (1.8-2.4) H 05/22/20 06:00 Ferritin 1022.5 ng/ml (8-388) H 05/20/20 06:30 Total Bilirubin 0.7 mg/dL (0.2-1) 05/22/20 06:00 AST 19 U/L (15-37) 05/22/20 06:00 ALT 17 U/L (13-61) 05/22/20 06:00 Alkaline Phosphatase 76 U/L (45-117) 05/22/20 06:00 LD Total 369 U/L (87-246) H 05/20/20 06:30 Creatine Kinase 68 U/L (26-308) 05/19/20 09:57 Troponin I < 0.02 ng/ml (0.00-0.05) 11 09:57 C-Reactive Protein 11.6 MG/DL (0.00-0.3) H 05/22/20 06:00 Total Protein 5.6 g/dl (6.4-8.2) L 05/22/20 06:00 Albumin 2.9 g/dl (3.4-5.0) L 05/22/20 06:00 Urine Color Yellow 05/19/20 09:37 Urine Appearance Clear 05/19/20 09:37 Urine pH 5.0 (5.0-8.0) 11 09:37 Ur Specific [place] 1.027 (1.010-1.035) 05/19/20 09:37 Urine Protein 3+ (NEGATIVE) H 05/19/20 09:37 Urine Glucose (UA) Negative (NEGATIVE) 05/19/20 09:37 Urine Ketones Negative (NEGATIVE) 05/19/20 09:37 Urine Blood Trace (NEGATIVE) 05/19/20 09:37 Urine Nitrite Negative (NEGATIVE) 05/19/20 09:37 Urine Bilirubin Negative (NEGATIVE) 05/19/20 09:37 Urine Urobilinogen 1.0 mg/dL (0.2-1.0) 05/19/20 09:37 Ur Leukocyte Esterase Negative (NEGATIVE) 05/19/20 09:37 Urine WBC (Auto) 9 /uL (0-25.8) 05/19/20 09:37 Urine RBC (Auto) 8 /uL (0-23.9) 05/19/20 09:37 Urine Casts (Auto) 3 /uL (0-3.1) 05/19/20 09:37 U Epithel Cells (Auto) 13 /uL (0-25.1) 05/19/20 09:37 Urine Bacteria (Auto) 2 /uL (0-1359) 05/19/20 09:37 COVID-19 (DAWIT) Detected (Not Detected) H 05/19/20 09:37 Influenza A (Rapid) Negative (Negative) 05/19/20 14:45 Influenza B (Rapid) Negative (Negative) 05/19/20 14:45 Blood Type A POSITIVE 05/19/20 11:23 Antibody Screen Negative 05/19/20 11:23 EKG: afib, vr 120s, old RBBB, nl qtc manually, no sig change prior tele: afib, vr 100s-120s cxr: bl infiltrates echo 11/2018: nl lv/rv, maritza, mod-sev mr/tr, avr wnl, rvsp 30-40; on review by Dr Olivera and Hamida, MR and TR do not appear severe a/p: 74M h/o CHF, CLL, CVA, s/p bioAVR, afib p/w sob. covid PNA, hypoxia, sob: -no signs chf, acs -cont abx per ID. ecg with rbbb so qtc not as reliable but manually calculated appears normal, monitor on tele. -cont supplemental o2 s/p bioAVR - nl fcn on recent echo - cont ac per inr afib - rvr here likely due to infection, resp distress. Cont lopressor po and iv prn. So far bp has been stable. Cont tele. - cont coumadin per inr (currently holding due to inr supratherapeutic) chronic diastolic HF - appears euvolemic presently - sob sec to PNA CLL, thrombocytopenia - manage per onc
--- NOTE | 2020-05-22 13:59 | PN ---
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
[2020-05-22 14:48] LABS: ANISOCYTOSIS 2+; MACROCYTOSIS 0; PLATELET ESTIMATE DECREASED
[2020-05-22] MEDS ORDERED: MELATONIN 5 MG TABLETS PO ONE (21:18)
--- NOTE | 2020-05-22 23:06 | PN ---
Progress Note, Physician History of Present Illness: Pt on BIPAP/Hi flow O2 - Current Medication List Current Medications: Active Medications Albuterol Sulfate (Ventolin Hfa Inhaler -) 2 puff IH Q4H PRN PRN Reason: SHORT OF BREATH/WHEEZING Dexamethasone Sodium Phosphate (Decadron Injection -) 6 mg IVPUSH DAILY [facility] Last Admin: 05/22/20 10:41 Dose: 6 mg Documented by: Non-Formulary Medication 100 (mg/ Sodium Chloride) 250 mls @ 250 mls/hr IVPB DAILY [facility] Stop: 05/23/20 10:59 Last Admin: 05/22/20 11:00 Dose: 250 mls/hr Documented by: Doxycycline Hyclate 100 mg/ (Dextrose) 100 mls @ 50 mls/hr IVPB BID [facility] Last Admin: 05/22/20 21:42 Dose: 50 mls/hr Documented by: Ceftriaxone Sodium 2 gm/ (Dextrose) 100 mls @ 100 mls/hr IVPB DAILY [facility]; Protocol Last Admin: 05/22/20 10:40 Dose: 100 mls/hr Documented by: Metoprolol Tartrate (Lopressor -) 25 mg PO BID [facility] Last Admin: 05/22/20 21:42 Dose: 25 mg Documented by: Metoprolol Tartrate (Lopressor Injection -) 5 mg IVPUSH Q4H PRN PRN Reason: TACHYCARDIA Pantoprazole Sodium (Protonix Iv) 40 mg IVPUSH DAILY [facility] Last Admin: 05/22/20 10:41 Dose: 40 mg Documented by: - Objective Vital Signs: Vital Signs Temperature 97.5 F L 05/22/20 22:00 Pulse Rate 111 H 05/22/20 22:00 Respiratory Rate 27 H 05/22/20 22:00 Blood Pressure 146/76 05/22/20 22:00 O2 Sat by Pulse Oximetry (%) 95 05/22/20 22:00 Cardiovascular: Yes: Tachycardia Respiratory: Yes: Other (Coarse bs B/L) Gastrointestinal: Yes: WNL, Normal Bowel Sounds, Soft Labs: CBC, BMP 05/22/20 06:00 05/22/20 06:00 INR, PTT INR 4.89 (0.83-1.09) H* 05/22/20 06:00 Problem List - Problems (1) Acute hypoxemic respiratory failure Assessment/Plan: Due to COVID-19 pneumonia Cont Hi flow O2 Cont BIPAP Code(s): J96.01 - ACUTE RESPIRATORY FAILURE WITH HYPOXIA (2) Bilateral pneumonia Assessment/Plan: Cont IV ceftriaxone/Doxycycline Code(s): J18.9 - PNEUMONIA, UNSPECIFIED ORGANISM (3) COVID-19 with multiple comorbidities Assessment/Plan: Cont Remedesivir Cont dexamethasone Pt received convalascent plasma Code(s): U07.1 - COVID-19 (4) Atrial fibrillation Assessment/Plan: INR elevated However due to elevated D-Dimer will not reverse at this time Monitor for bleeding Daily PT/INR Hold coumadin Code(s): I48.91 - UNSPECIFIED ATRIAL FIBRILLATION Qualifiers: Atrial fibrillation type: chronic (5) CLL (chronic lymphocytic leukemia) Assessment/Plan: Will get heme/onc consult Code(s): C91.10 - CHRONIC LYMPHOCYTIC LEUK OF B-CELL TYPE NOT ACHIEVE REMIS (6) HLD (hyperlipidemia) Code(s): E78.5 - HYPERLIPIDEMIA, UNSPECIFIED (7) HTN (hypertension) Code(s): I10 - ESSENTIAL (PRIMARY) HYPERTENSION
[2020-05-23 06:05] LABS: BASO % 0.1 % (0-2.0); HEMATOCRIT 40.1 % (35.4-49); LYMPH % 89.6 % (8-40); MCH 26.7 pg (25.7-33.7); MCHC 29.9 g/dl (32.0-35.9); MEAN CELL VOLUME 89.3 fl (80-96); MEAN PLT VOLUME 7.9 fl (7.5-11.1); MONO % 4.5 % (3.8-10.2); NEUT % 5.8 % (42.8-82.8); PLATELET COUNT 92 K/MM3 (134-434); RBC 4.49 M/mm3 (4.00-5.60); RDW 17.8 % (11.9-15.9)
[2020-05-23 06:06] LABS: PROTHROMBIN TIME (PATIENT) 81.2 SEC (9.7-13.0)
[2020-05-23 06:22] LABS: POTASSIUM 4.3 mmol/L (3.5-5.1)
[2020-05-23 06:25] LABS: BLOOD UREA NITROGEN 35.2 mg/dL (7-18)
[2020-05-23 06:26] LABS: MAGNESIUM 2.5 mg/dL (1.8-2.4)
[2020-05-23 06:28] LABS: CREATININE 0.7 mg/dL (0.55-1.3)
[2020-05-23 06:30] LABS: BILIRUBIN,TOTAL 0.9 mg/dL (0.2-1)
[2020-05-23 08:04] LABS: INR 7.11 (0.83-1.09)
[2020-05-23] MEDS ORDERED: dilTIAZem HCL 50 MG/10 ML - 10 ML VIAL IVPUSH ONE ×2 (09:08→10:00)
[2020-05-23] MEDS ORDERED: dilTIAZem HCL 25 MG/5 ML - 5 ML VIAL ONE (09:12)
[2020-05-23] MEDS ORDERED: ALPRAZolam 0.25 MG TABLET PO PRN (09:12)
[2020-05-23] MEDS: DILTIAZEM INJECTION 125 MG in DEXTROSE 5%-WATER - 100 ML IVPB SCH ×2 (09:20→17:08)
[2020-05-23] MEDS: DOXYCYCLINE INJECTION 100 MG in DEXTROSE 5%-WATER - 100 ML IVPB SCH (10:00)
[2020-05-23] MEDS ORDERED: DEXTROSE 5%-WATER 100 ML IVPB ONE ×2 (10:00→18:44)
[2020-05-23] MEDS: DEXAMETHASONE SOD PHOSPHATE 4 MG/1 ML VIAL IVPUSH SCH (10:01)
[2020-05-23] MEDS: PANTOPRAZOLE SODIUM 40 MG VIAL IVPUSH SCH (10:01)
[2020-05-23] MEDS: CEFTRIAXONE 2 GM in DEXTROSE 5%-WATER 100 ML IVPB SCH (10:18)
[2020-05-23] MEDS ORDERED: PT OWN MED DRAWER 7, Y5N ONE (10:57)
[2020-05-23] MEDS: REMDESIVIR 100 MG in SODIUM CHLORIDE 230 ML IVPB SCH (11:05)
[2020-05-23 11:09] LABS: ANISOCYTOSIS 2+; MACROCYTOSIS 1+; PLATELET ESTIMATE DECREASED
--- NOTE | 2020-05-23 11:44 | PN ---
Physical Exam: SUBJECTIVE: Patient seen and examined at bedside. This morning the patient had much more difficulty breathing and had an oxygen saturation in the low 80's. The patient was asking to take the Bipap off, as it feels uncomfortable for him. He also had continued agitation and his heart rate was increased with atrial fibrillation. The son was called and informed about the possibility of intubation. The son Mr. Luis Aden agreed that the patient can be intubated if necessary. A Cardizem drip was started for the patient's Atrial Fibrillation. A very low dose amount of Xanax was given to help relax the patient. Avoid Amiodarone in this patient per Pulm. In the late afternoon the patient had significantly worsened work of breathing with low oxygen saturation and had to be intubated. An internal jugular central line and a-line was placed as well. Family contacted and informed that the patient was intubated. Vitamin K held for now per Dr. Victoria's (Hem-Onc) recommendation. OBJECTIVE: Vital Signs Period Temp Pulse Resp BP Sys/Estevez Pulse Ox Last 24 Hr 97.5 F-98.2 F 91-139 19-34 115-154/56-94 92-99 GENERAL: The patient is awake, alert, and fully oriented, in mild distress. HEAD: Normal with no signs of trauma. EYES: PERRL, extraocular movements intact. No ptosis. ENT: Ears normal, nares patent. Bipap mask on face. NECK: Trachea midline, full range of motion, supple. LUNGS: Decreased breath sounds. HEART: Irregular rhythm. Tachycardic. ABDOMEN: Nondistended, normoactive bowel sounds. EXTREMITIES: 2+ pulses, warm, well-perfused, no edema. NEUROLOGICAL: Normal speech, gait not observed. PSYCH: Normal mood, normal affect. SKIN: Warm, dry, normal turgor. Left leg below knee with non-blanching hyperpigmented 1 cm spots Laboratory Results - last 24 hr 05/22/20 05/23/20 05/23/20 06:00 05:53 05:53 WBC 260.0 H* RBC 4.49 Hgb 12.0 Hct 40.1 MCV 89.3 MCH 26.7 MCHC 29.9 L RDW 17.8 H Plt Count 92 L MPV 7.9 Absolute Neuts (auto) 15.1 H Neutrophils % 5.8 L Neutrophils % (Manual) 4.3 L 0.0 L Band Neutrophils % 0.0 0.0 Lymphocytes % 89.6 H Lymphocytes % (Manual) 95.7 H* 100.0 H* Monocytes % 4.5 D Monocytes % (Manual) 0 L D 0 L Eosinophils % 0.0 Eosinophils % (Manual) 0.0 0.0 Basophils % 0.1 Basophils % (Manual) 0.0 0.0 Myelocytes % (Man) 0 0 Promyelocytes % (Man) 0 0 Blast Cells % (Manual) 0 0 Nucleated RBC % 0 0 Metamyelocytes 0 0 Hypochromia 0 0 Platelet Estimate Decreased Decreased Polychromasia 0 0 Poikilocytosis 0 1+ Anisocytosis 2+ 2+ Microcytosis 2+ Macrocytosis 0 1+ Finley Cells 2+ PT with INR INR Sodium 143 Potassium 4.3 Chloride 108 H Carbon Dioxide 25 Anion Gap 10 BUN 35.2 H Creatinine 0.7 Est GFR (CKD-EPI)AfAm 106.99 Est GFR (CKD-EPI)NonAf 92.31 Random Glucose 113 H Calcium 9.0 Phosphorus 3.0 Magnesium 2.5 H Total Bilirubin 0.9 AST 17 ALT 16 Alkaline Phosphatase 100 Total Protein 6.0 L Albumin 3.0 L 05/23/20 05:53 WBC RBC Hgb Hct MCV MCH MCHC RDW Plt Count MPV Absolute Neuts (auto) Neutrophils % Neutrophils % (Manual) Band Neutrophils % Lymphocytes % Lymphocytes % (Manual) Monocytes % Monocytes % (Manual) Eosinophils % Eosinophils % (Manual) Basophils % Basophils % (Manual) Myelocytes % (Man) Promyelocytes % (Man) Blast Cells % (Manual) Nucleated RBC % Metamyelocytes Hypochromia Platelet Estimate Polychromasia Poikilocytosis Anisocytosis Microcytosis Macrocytosis Finley Cells PT with INR 81.20 H INR 7.11 H* Sodium Potassium Chloride Carbon Dioxide Anion Gap BUN Creatinine Est GFR (CKD-EPI)AfAm Est GFR (CKD-EPI)NonAf Random Glucose Calcium Phosphorus Magnesium Total Bilirubin AST ALT Alkaline Phosphatase Total Protein Albumin Active Medications Generic Name Dose Route Start Last Admin Trade Name Freq PRN Reason Stop Dose Admin Albuterol Sulfate 2 puff 05/22/20 09:31 Ventolin Hfa Inhaler - IH Q4H PRN SHORT OF BREATH/WHEEZING Alprazolam 0.25 mg 05/23/20 09:12 05/23/20 09:51 Xanax - PO 05/24/20 09:11 0.25 mg ONCE PRN Administration ANXIETY Dexamethasone Sodium Phosphate 6 mg 05/20/20 10:00 05/23/20 10:01 Decadron Injection - IVPUSH 6 mg DAILY ELIS Administration Doxycycline Hyclate 100 mg/ 100 mls @ 50 mls/hr 05/19/20 13:15 05/22/20 21:42 Dextrose IVPB 50 mls/hr BID ELIS Administration Ceftriaxone Sodium 2 gm/ 100 mls @ 100 mls/hr 05/20/20 10:00 05/23/20 10:18 Dextrose IVPB 100 mls/hr DAILY ELIS Administration Protocol Diltiazem HCl 125 mg/ Dextrose 125 mls @ 5 mls/hr 05/23/20 09:15 05/23/20 11:07 IVPB 15 mg/hr TITR ELIS 15 mls/hr Titration Protocol 5 MG/HR Metoprolol Tartrate 5 mg 05/20/20 12:22 Lopressor Injection - IVPUSH Q4H PRN TACHYCARDIA Pantoprazole Sodium 40 mg 05/19/20 14:15 05/23/20 10:01 Protonix Iv IVPUSH 40 mg DAILY ELIS Administration ASSESSMENT/PLAN: 74 year old male patient with past medical history that includes HTN, hyperlipidemia, atrial fibrillation (on coumadin), aortic stenosis s/p bioAVR, h/o CVA, CLL (not on meds for last 2 months per his [facility] oncologist), who is admitted to the ICU for hypoxia 2/2 COVID. NEURO - A&Ox3 PULM - Patient's oxygen saturation falls when the patient becomes anxious, so patient is told to relax - On Bipap - Patient is self-proning - Decadron 6mg IV daily - Remdesivir 100mg day 5 - C-plasma given yesterday - Ceftriaxone 2gm daily - Doxycycline 100mg BID - Nebulized Albuterol 2 puffs Q4H IH PRN CARDIO - Monitoring on telemetry - Has Atrial Fibrillation - Lopressor 25mg BID PO - Also Lopressor 5mg IV Q4 PRN ID - COVID positive - Decadron 6mg IV daily - Remdesivir 100mg day 5 - C-plasma given yesterday - Ceftriaxone 2gm daily - Doxycycline 100mg BID DVT PPx - INR 7.11 with plan to start Eliquis once the INR < 3.0 FEN - Avoiding IV fluids due to risk of COVID induced pulmonary capillary leak - Monitor and replete electrolytes - NPO TLD - Intubated 05/23/2020 - Right IJ 05/23/2020 - Right Axillary A-Line 05/23/2020 Prognosis Guarded Visit type - Emergency Visit Emergency Visit: Yes ED Registration Date: 05/19/20 Care time: The patient presented to the Emergency Department on the above date and was hospitalized for further evaluation of their emergent condition. - New Patient This patient is new to me today: No - Critical Care Critical Care patient: Yes Total Critical Care Time (in minutes): 40 Critical Care Statement: The care of this patient involved high complexity decision making to prevent further life threatening deterioration of the patient's condition and/or to evaluate & treat vital organ system(s) failure or risk of failure. - Discharge Referral Referred to [facility] No - Medication Review Med list reviewed for High Risk Meds patients 65 and older: Yes ATTENDING PHYSICIAN STATEMENT I saw and evaluated the patient. I reviewed the resident's note and discussed the case with the resident. I agree with the resident's findings and plan as documented. SUBJECTIVE: OBJECTIVE: ASSESSMENT AND PLAN:
--- NOTE | 2020-05-23 12:30 | PN ---
Teaching Attending Note Name of Resident: Santy Kumar ATTENDING PHYSICIAN STATEMENT I saw and evaluated the patient. I reviewed the resident's note and discussed the case with the resident. I agree with the resident's findings and plan as documented. SUBJECTIVE: Patient seen and examined in the ICU. Remains tachypneic on NIPPV support. Still not being compliant with keeping mask intact and self proning despite re-direction and asking his family to instructional coach him by phone. Rapid AFib: IV Cardizem drip started. Denies CP. Intake & Output 05/20/20 05/21/20 05/22/20 05/23/20 23:59 23:59 23:59 23:59 Intake Total 650 1432 862 Output Total 940 1470 1150 Balance -290 -38 -288 Weight 180 lb 180 lb Last Vital Signs Temp Pulse Resp BP Pulse Ox 97.8 F 139 H 34 H 147/73 95 05/23/20 06:00 05/23/20 12:03 05/23/20 08:00 05/23/20 08:00 05/23/20 12:03 Active Medications Albuterol Sulfate (Ventolin Hfa Inhaler -) 2 puff IH Q4H PRN PRN Reason: SHORT OF BREATH/WHEEZING Alprazolam (Xanax -) 0.25 mg PO ONCE PRN PRN Reason: ANXIETY Stop: 05/24/20 09:11 Last Admin: 05/23/20 09:51 Dose: 0.25 mg Documented by: Dexamethasone Sodium Phosphate (Decadron Injection -) 6 mg IVPUSH DAILY [facility] Last Admin: 05/23/20 10:01 Dose: 6 mg Documented by: Doxycycline Hyclate 100 mg/ (Dextrose) 100 mls @ 50 mls/hr IVPB BID [facility] Last Admin: 05/22/20 21:42 Dose: 50 mls/hr Documented by: Ceftriaxone Sodium 2 gm/ (Dextrose) 100 mls @ 100 mls/hr IVPB DAILY [facility]; Protocol Last Admin: 05/23/20 10:18 Dose: 100 mls/hr Documented by: Diltiazem HCl 125 mg/ Dextrose 125 mls @ 5 mls/hr IVPB TITR [facility]; Protocol Last Titration: 05/23/20 11:07 Dose: 15 mg/hr, 15 mls/hr Documented by: Metoprolol Tartrate (Lopressor Injection -) 5 mg IVPUSH Q4H PRN PRN Reason: TACHYCARDIA Pantoprazole Sodium (Protonix Iv) 40 mg IVPUSH DAILY ELIS Last Admin: 05/23/20 10:01 Dose: 40 mg Documented by: Constitutional: Yes:tachypneic on NIPPV support Eyes: Yes: WNL, Conjunctiva Clear, EOM Intact HENT: Yes: WNL, Atraumatic, Normocephalic Neck: Yes: WNL, Supple, Trachea Midline Cardiovascular: Yes: WNL, Tachycardia, Pulse Irregular, S1, S2 Respiratory: Yes: tachypneic on NIPPV, Poor Air Entry, SOB on Exertion Gastrointestinal: Yes: WNL, Normal Bowel Sounds, Soft ...Rectal Exam: Yes: Deferred Renal/: Yes: WNL Breast(s): Yes: WNL Musculoskeletal: Yes: Muscle Weakness Extremities: Yes: WNL Edema: No Peripheral Pulses WNL: Yes Integumentary: Yes: WNL ...Motor Strength: WNL Psychiatric: Yes: WNL Labs: Laboratory Results - last 24 hr 05/22/20 05/23/20 05/23/20 06:00 05:53 05:53 WBC 260.0 H* RBC 4.49 Hgb 12.0 Hct 40.1 MCV 89.3 MCH 26.7 MCHC 29.9 L RDW 17.8 H Plt Count 92 L MPV 7.9 Absolute Neuts (auto) 15.1 H Neutrophils % 5.8 L Neutrophils % (Manual) 4.3 L 0.0 L Band Neutrophils % 0.0 0.0 Lymphocytes % 89.6 H Lymphocytes % (Manual) 95.7 H* 100.0 H* Monocytes % 4.5 D Monocytes % (Manual) 0 L D 0 L Eosinophils % 0.0 Eosinophils % (Manual) 0.0 0.0 Basophils % 0.1 Basophils % (Manual) 0.0 0.0 Myelocytes % (Man) 0 0 Promyelocytes % (Man) 0 0 Blast Cells % (Manual) 0 0 Nucleated RBC % 0 0 Metamyelocytes 0 0 Hypochromia 0 0 Platelet Estimate Decreased Decreased Polychromasia 0 0 Poikilocytosis 0 1+ Anisocytosis 2+ 2+ Microcytosis 2+ Macrocytosis 0 1+ Yury Cells 2+ PT with INR INR Sodium 143 Potassium 4.3 Chloride 108 H Carbon Dioxide 25 Anion Gap 10 BUN 35.2 H Creatinine 0.7 Est GFR (CKD-EPI)AfAm 106.99 Est GFR (CKD-EPI)NonAf 92.31 Random Glucose 113 H Calcium 9.0 Phosphorus 3.0 Magnesium 2.5 H Total Bilirubin 0.9 AST 17 ALT 16 Alkaline Phosphatase 100 Total Protein 6.0 L Albumin 3.0 L 05/23/20 05:53 WBC RBC Hgb Hct MCV MCH MCHC RDW Plt Count MPV Absolute Neuts (auto) Neutrophils % Neutrophils % (Manual) Band Neutrophils % Lymphocytes % Lymphocytes % (Manual) Monocytes % Monocytes % (Manual) Eosinophils % Eosinophils % (Manual) Basophils % Basophils % (Manual) Myelocytes % (Man) Promyelocytes % (Man) Blast Cells % (Manual) Nucleated RBC % Metamyelocytes Hypochromia Platelet Estimate Polychromasia Poikilocytosis Anisocytosis Microcytosis Macrocytosis Aquilla Cells PT with INR 81.20 H INR 7.11 H* Sodium Potassium Chloride Carbon Dioxide Anion Gap BUN Creatinine Est GFR (CKD-EPI)AfAm Est GFR (CKD-EPI)NonAf Random Glucose Calcium Phosphorus Magnesium Total Bilirubin AST ALT Alkaline Phosphatase Total Protein Albumin Imaging - Results Chest X-ray: Image Reviewed (Personal read: 05/19 Bilateral opacities) Problem List - Problems (1) COVID-19 with multiple comorbidities Code(s): U07.1 - COVID-19 (2) Acute hypoxemic respiratory failure Code(s): J96.01 - ACUTE RESPIRATORY FAILURE WITH HYPOXIA (3) Abnormal INR Code(s): R79.1 - ABNORMAL COAGULATION PROFILE (4) Atrial fibrillation Code(s): I48.91 - UNSPECIFIED ATRIAL FIBRILLATION Qualifiers: Atrial fibrillation type: chronic (5) CLL (chronic lymphocytic leukemia) Code(s): C91.10 - CHRONIC LYMPHOCYTIC LEUK OF B-CELL TYPE NOT ACHIEVE REMIS (6) Thrombocytopenia Code(s): D69.6 - THROMBOCYTOPENIA, UNSPECIFIED (7) Weakness Code(s): R53.1 - WEAKNESS Assessment/Plan NIPPV adjusted IV Cardizem drip started for rate control : Cardiology follow up Patient advised that prone and positional change is extremely important and if not performed can lead to respiratory failure Remdesivir : Anticipate giving 10 days in total Pulmonary toileting ABX per ID Strict I/O Minimize IVF PO with extreme caution Follow INR : start Eliquis or Lovenox once INR < 3 PPI Continue ICU monitoring for tenuous overall status : Anticipate intubation Dr Cano Critical care time spent in reviewing chart, evaluating patient and formulating plan - 36 minutes.
[2020-05-23] MEDS ORDERED: LORazepam 2 MG/ML SDV VIAL ONE (13:32)
[2020-05-23] MEDS ORDERED: PROPOFOL 1,000,000 MCG/100 ML VIAL ONE (13:38)
[2020-05-23] MEDS ORDERED: MIDAZOLAM HCL 5 MG/1 ML Single Dose Vial ONE (13:40)
[2020-05-23] MEDS ORDERED: LORazepam 2 MG/ML SDV VIAL IVPUSH ONE (13:45)
[2020-05-23] MEDS ORDERED: VECURONIUM BROMIDE 10 MG/10 ML VIAL ONE (13:52)
--- NOTE | 2020-05-23 13:55 | PROC ---
Intubation - Intubation Reason for Intubation: Respiratory Failure Intubation Method: orotracheal Blade used: Glidescope Tube Size (cm): 8.0 Tube position confirmed by: Direct visualization, CO2 detector, Chest x-ray, Lise ath sounds Breath Sounds after Intubation: equal Post Intubation Xray: Yes
[2020-05-23] MEDS ORDERED: VECURONIUM BROMIDE 50 MG/50 ML VIAL IVPUSH ONE (13:56)
[2020-05-23] MEDS: PROPOFOL 1,000,000 MCG/100 ML VIAL IVPB SCH ×2 (14:35→17:09)
[2020-05-23] MEDS ORDERED: METOPROLOL TARTRATE 5 MG/5 ML VIAL IVPUSH ONE (14:39)
--- NOTE | 2020-05-23 15:26 | PROC ---
Central Line Insertion Indication: CVP Monitoring, Sepsis Risks and Benefits Explained: No (Implied consent) Consent on Chart: No (Emergent procedure) Central Line: Triple Lumen Catheter Anesthesia: 1% Lidocaine Sterile Technique: Yes Ultrasound Guided Assistance: Yes Position: Right Internal Jugular Post Insertion: Yes: Bilateral Breath Sounds, Bilateral Chest Expansion, Chest X-Ray Ordered Sterile Dressing Applied: Yes Remarks: Emergent procedure, implied consent
--- NOTE | 2020-05-23 15:28 | PROC ---
Procedure Note Procedure: Procedure note: Arterial line Indication: hemodynamic monitoring A time out was performed. My hands were washed immediately prior to this procedure. Site was prepared in sterile fashion. Right axillary artery visualized with ultrasound guidance. 1% Lidoacaine injected locally for anesthetic. Introducer needle introduced with ultrasound guidance. Bright red pulsatile blood return noted. Guidewire was advanced. The arterial line was advanced over guidewire. Guidewire was removed in its entirety. Bright red pulsatile blood return confirmed from arterial line. Biopatch applied, arterial line sutured in place, covered with Tegaderm. Patient tolerated procedure well. EBL 2cc. Supervising attending Dr. Cano
[2020-05-23 16:01] LABS: ARTERIAL BLD GAS O2 SATURATION 85.9 mmHg (95-98); ARTERIAL BLOOD GAS PO2 65.8 mmHg (80-100)
[2020-05-23 16:02] LABS: ALLENS TEST POSITIVE
[2020-05-23 16:04] LABS: VENT MODE A/C
[2020-05-23 16:05] LABS: VENT RATE 22
[2020-05-23 16:09] LABS: ARTERIAL BLOOD GAS pH 7.137 (7.350-7.450)
--- NOTE | 2020-05-23 16:18 | PN ---
Progress Note (short form) - Note Progress Note: events noted- tachycardic and hypoxic, intubated earlier today now sedated on diltazem drip Vital Signs Period Temp Pulse Resp BP Sys/Estevez Pulse Ox Last 24 Hr 97.5 F-98 F 91-149 19-34 121-178/65-94 92-99 cor-rrr lungs decreased bs at bases abd soft,nt ext no edema CBC, BMP 05/23/20 05:53 05/23/20 05:53 Microbiology 05/19/20 09:37 Blood - Peripheral Venous Blood Culture - Preliminary NO GROWTH OBTAINED AFTER 96 HOURS, INCUBATION TO CONTINUE FOR 1 DAYS. 05/19/20 09:37 Blood - Peripheral Venous Blood Culture - Preliminary NO GROWTH OBTAINED AFTER 96 HOURS, INCUBATION TO CONTINUE FOR 1 DAYS. 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
[2020-05-23] MEDS ORDERED: PHYTONADIONE 10 MG/1 ML AMP IM ONE (16:42)
[2020-05-23] MEDS: VECURONIUM BROMIDE 100 MG/100 ML BAG IVPB SCH (16:48)
--- NOTE | 2020-05-23 17:05 | PN ---
Progress Note (short form) - Note Progress Note: cc: sob s: resp distress earlier so now intubated. still with rvr so on dilt gtt for rate control. Current Medications Generic Name Dose Route Start Last Admin Trade Name Anthony PRN Reason Stop Dose Admin Albuterol Sulfate 2 puff 05/22/20 09:31 Ventolin Hfa Inhaler - IH Q4H PRN SHORT OF BREATH/WHEEZING Alprazolam 0.25 mg 05/23/20 09:12 05/23/20 09:51 Xanax - PO 05/24/20 09:11 0.25 mg ONCE PRN Administration ANXIETY Dexamethasone Sodium Phosphate 6 mg 05/20/20 10:00 05/23/20 10:01 Decadron Injection - IVPUSH 6 mg DAILY ELIS Administration Doxycycline Hyclate 100 mg/ 100 mls @ 50 mls/hr 05/19/20 13:15 05/23/20 10:00 Dextrose IVPB 50 mls/hr BID ELIS Administration Ceftriaxone Sodium 2 gm/ 100 mls @ 100 mls/hr 05/20/20 10:00 05/23/20 10:18 Dextrose IVPB 100 mls/hr DAILY ELIS Administration Protocol Diltiazem HCl 125 mg/ Dextrose 125 mls @ 5 mls/hr 05/23/20 09:15 05/23/20 11:07 IVPB 15 mg/hr TITR ELIS 15 mls/hr Titration Protocol 5 MG/HR Vecuronium [place]an 100 mg in 100 mls @ 4.899 mls/hr 05/23/20 14:00 05/23/20 16:48 Vecuronium [place] IVPB 1 mcg/kg/min TITR ELIS 4.899 mls/hr Administration Protocol 1 MCG/KG/MIN Propofol 1,000,000 mcg in 100 mls @ 2.449 mls/hr 05/23/20 14:00 05/23/20 15:20 Diprivan - IVPB 40 mcg/kg/min TITR ELIS 19.595 mls/hr Titration Protocol 5 MCG/KG/MIN Metoprolol Tartrate 5 mg 05/20/20 12:22 Lopressor Injection - IVPUSH Q4H PRN TACHYCARDIA Pantoprazole Sodium 40 mg 05/19/20 14:15 05/23/20 10:01 Protonix Iv IVPUSH 40 mg DAILY ELIS Administration Vital Signs Temp 98 F 05/23/20 10:00 Pulse 140 H 05/23/20 15:51 Resp 22 H 05/23/20 15:59 BP 128/80 05/23/20 15:51 Pulse Ox 94 L 05/23/20 15:59 Intake & Output 05/22/20 05/23/20 05/23/20 23:59 11:59 23:59 Intake Total 100 Output Total 750 Balance -650 Intake: Oral 100 Output: Urine 750 Void 750 Other: Voiding Method Urinal Urinal # Unmeasured Voids Void 1 Constitutional: intubated, sedated Respiratory: Yes:vented, coarse bl lung sounds Gastrointestinal: Yes: Normal Bowel Sounds, Soft Cardiovascular: Yes: irreg, tachy No jvd Heart Sounds: Yes: S1, S2 Murmur: Yes: Systolic Murmur, Grade 2 Extremities: No: Cold Edema: No Integumentary: No: Jaundice Psychiatric: No: Agitated Laboratory Last Values WBC 260.0 K/mm3 (4.0-10.0) H* 05/23/20 05:53 RBC 4.49 M/mm3 (4.00-5.60) 05/23/20 05:53 Hgb 12.0 GM/dL (11.7-16.9) 05/23/20 05:53 Hct 40.1 % (35.4-49) 05/23/20 05:53 MCV 89.3 fl (80-96) 05/23/20 05:53 MCH 26.7 pg (25.7-33.7) 05/23/20 05:53 MCHC 29.9 g/dl (32.0-35.9) L 05/23/20 05:53 RDW 17.8 % (11.9-15.9) H 05/23/20 05:53 Plt Count 92 K/MM3 (134-434) L 05/23/20 05:53 MPV 7.9 fl (7.5-11.1) 05/23/20 05:53 Absolute Neuts (auto) 15.1 K/mm3 (1.5-8.0) H 05/23/20 05:53 Neutrophils % 5.8 % (42.8-82.8) L 05/23/20 05:53 Neutrophils % (Manual) 0.0 % (42.8-82.8) L 05/23/20 05:53 Band Neutrophils % 0.0 % 05/23/20 05:53 Lymphocytes % 89.6 % (8-40) H 05/23/20 05:53 Lymphocytes % (Manual) 100.0 % (8-40) H* 05/23/20 05:53 Monocytes % 4.5 % (3.8-10.2) D 05/23/20 05:53 Monocytes % (Manual) 0 % (3.8-10.2) L 05/23/20 05:53 Eosinophils % 0.0 % (0-4.5) 05/23/20 05:53 Eosinophils % (Manual) 0.0 % (0-4.5) 05/23/20 05:53 Basophils % 0.1 % (0-2.0) 05/23/20 05:53 Basophils % (Manual) 0.0 % (0-2.0) 05/23/20 05:53 Myelocytes % (Man) 0 % (0-2) 05/23/20 05:53 Promyelocytes % (Man) 0 % (0-2) 05/23/20 05:53 Blast Cells % (Manual) 0 % (0-0) 05/23/20 05:53 Nucleated RBC % 0 % (0-0) 05/23/20 05:53 Metamyelocytes 0 % (0-2) 05/23/20 05:53 Differential Comment See commed 05/19/20 09:37 Hypochromia 0 05/23/20 05:53 Toxic Granulation 2+ 05/20/20 06:30 Platelet Estimate Decreased 05/23/20 05:53 Polychromasia 0 05/23/20 05:53 Poikilocytosis 1+ 05/23/20 05:53 Anisocytosis 2+ 05/23/20 05:53 Microcytosis 2+ 05/23/20 05:53 Macrocytosis 1+ 05/23/20 05:53 Tear Drop Cells 1+ 05/20/20 06:30 Ovalocytes 1+ 05/20/20 06:30 Yury Cells 2+ 05/22/20 06:00 Acanthocytes (Spur) 1+ 05/20/20 06:30 PT with INR 81.20 SEC (9.7-13.0) H 05/23/20 05:53 INR 7.11 (0.83-1.09) H* 05/23/20 05:53 PTT (Actin FS) 37.4 SECONDS (25.2-36.5) H 05/19/20 09:37 D-Dimer 1073 ng/ml (0-500) H 05/21/20 05:55 Anticoagulation Therapy No Result Required. 05/23/20 15:50 Puncture Site No Result Required. 05/23/20 15:50 Patient Temperature No Result Required. 05/23/20 15:50 ABG pH 7.137 (7.350-7.450) L* 05/23/20 15:50 ABG pCO2 62.70 mmHg (35-45) H 05/23/20 15:50 ABG pO2 65.8 mmHg (80-100) L 05/23/20 15:50 ABG HCO3 20.7 mmol/L (22-27) L 05/23/20 15:50 ABG O2 Sat (Measured) 85.9 mmHg (95-98) L 05/23/20 15:50 ABG O2 Content No Result Required. 05/23/20 15:50 ABG Base Excess -9.0 mmol/L (-2-2) L 05/23/20 15:50 Nathen Test Positive 05/23/20 15:50 VBG pH 7.399 (7.310-7.410) 05/19/20 09:31 POC VBG pCO2 33.1 mmHg (38-52) L 05/19/20 09:31 POC VBG pO2 22.5 mmHg (28-48) L 05/19/20 09:31 VBG HCO3 20.0 mmol/L (23-29) L 05/19/20 09:31 VBG O2 Sat (Manjula) 39.5 % (70-80) L 05/19/20 09:31 VBG Base Excess -4.0 mmol/L (-2-2) L 05/19/20 09:31 Patient On Oxygen Yes 05/23/20 15:50 O2 Delivery Device No Result Required. 05/23/20 15:50 Oxygen Flow Rate 100% 05/23/20 15:50 Vent Mode A/c 05/23/20 15:50 Vent Rate 22 05/23/20 15:50 Mechanical Rate No Result Required. 05/23/20 15:50 PEEP 10.0 cmH2O 05/23/20 15:50 Pressure Support Vent 500 05/23/20 15:50 Sodium 143 mmol/L (136-145) 05/23/20 05:53 Potassium 4.3 mmol/L (3.5-5.1) 05/23/20 05:53 Chloride 108 mmol/L (98-107) H 05/23/20 05:53 Carbon Dioxide 25 mmol/L (21-32) 05/23/20 05:53 Anion Gap 10 MMOL/L (8-16) 05/23/20 05:53 BUN 35.2 mg/dL (7-18) H 05/23/20 05:53 Creatinine 0.7 mg/dL (0.55-1.3) 05/23/20 05:53 Est GFR (CKD-EPI)AfAm 106.99 05/23/20 05:53 Est GFR (CKD-EPI)NonAf 92.31 05/23/20 05:53 POC Glucometer 120 UNITS (80-120) 05/20/20 18:53 Random Glucose 113 mg/dL (74-106) H 05/23/20 05:53 Lactic Acid 2.0 mmol/L (0.4-2.0) 05/19/20 09:57 Calcium 9.0 mg/dL (8.5-10.1) 05/23/20 05:53 Phosphorus 3.0 mg/dL (2.5-4.9) 05/23/20 05:53 Magnesium 2.5 mg/dL (1.8-2.4) H 05/23/20 05:53 Ferritin 1022.5 ng/ml (8-388) H 05/20/20 06:30 Total Bilirubin 0.9 mg/dL (0.2-1) 05/23/20 05:53 AST 17 U/L (15-37) 05/23/20 05:53 ALT 16 U/L (13-61) 05/23/20 05:53 Alkaline Phosphatase 100 U/L (45-117) 05/23/20 05:53 LD Total 369 U/L (87-246) H 05/20/20 06:30 Creatine Kinase 68 U/L (26-308) 05/19/20 09:57 Troponin I < 0.02 ng/ml (0.00-0.05) 05/19/20 09:57 C-Reactive Protein 12.1 MG/DL (0.00-0.3) H 05/23/20 05:53 Total Protein 6.0 g/dl (6.4-8.2) L 05/23/20 05:53 Albumin 3.0 g/dl (3.4-5.0) L 11 05:53 Urine Color Yellow 05/19/20 09:37 Urine Appearance Clear 05/19/20 09:37 Urine pH 5.0 (5.0-8.0) 05/19/20 09:37 Ur Specific [place] 1.027 (1.010-1.035) 05/19/20 09:37 Urine Protein 3+ (NEGATIVE) H 05/19/20 09:37 Urine Glucose (UA) Negative (NEGATIVE) 05/19/20 09:37 Urine Ketones Negative (NEGATIVE) 05/19/20 09:37 Urine Blood Trace (NEGATIVE) 05/19/20 09:37 Urine Nitrite Negative (NEGATIVE) 05/19/20 09:37 Urine Bilirubin Negative (NEGATIVE) 05/19/20 09:37 Urine Urobilinogen 1.0 mg/dL (0.2-1.0) 05/19/20 09:37 Ur Leukocyte Esterase Negative (NEGATIVE) 05/19/20 09:37 Urine WBC (Auto) 9 /uL (0-25.8) 05/19/20 09:37 Urine RBC (Auto) 8 /uL (0-23.9) 05/19/20 09:37 Urine Casts (Auto) 3 /uL (0-3.1) 05/19/20 09:37 U Epithel Cells (Auto) 13 /uL (0-25.1) 05/19/20 09:37 Urine Bacteria (Auto) 2 /uL (0-1359) 05/19/20 09:37 COVID-19 (DAWIT) Detected (Not Detected) H 05/19/20 09:37 Influenza A (Rapid) Negative (Negative) 05/19/20 14:45 Influenza B (Rapid) Negative (Negative) 05/19/20 14:45 Blood Type A POSITIVE 05/19/20 11:23 Antibody Screen Negative 05/19/20 11:23 EKG: afib, vr 120s, old RBBB, nl qtc manually, no sig change prior tele: afib, rvr at times cxr: bl infiltrates echo 11/2018: nl lv/rv, maritza, mod-sev mr/tr, avr wnl, rvsp 30-40; on review by Dr Olivera and Hamida, MR and TR do not appear severe a/p: 74M h/o CHF, CLL, CVA, s/p bioAVR, afib p/w sob. covid PNA, hypoxia, sob: -no signs chf, acs -resp distress so no intubated -cont abx per ID. ecg with rbbb so qtc not as reliable but manually calculated appears normal, monitor on tele. -cont supplemental o2 s/p bioAVR - nl fcn on recent echo - cont ac per inr afib - rvr here likely due to infection, resp distress. Cont dilt gtt for now. Add oral agent when able to take pills. Cont tele. - cont coumadin per inr chronic diastolic HF - euvolemic presently - sob sec to PNA
[2020-05-23] MEDS ORDERED: PHYTONADIONE 10 MG/1 ML AMP IVPB ONE (17:06)
--- NOTE | 2020-05-23 17:23 | CONSULT ---
Consult - text type - Consultation Consultation Note: Patients INR continues to be elevated. PTT also elevated Would obtain LDH, Haptoglobin and fibrinogen to rule out DIC. If workup is non revealing, would give small dose of vitamin K only if concern for oozing/active bleeding 2/2 INR as patients with COVID can be hypercoagulatable and vitamin K can exacerbate this.
[2020-05-23] MEDS ORDERED: PIPERACILLIN/TAZOBACTAM 4.5 GM VIAL IVPB ONE (18:44)
[2020-05-23] MEDS: PIPERACILLIN/TAZOB 4.5 GM 4.5 GM in DEXTROSE 5%-WATER 100 ML IVPB SCH (19:04)
[2020-05-23 19:36] LABS: ARTERIAL BLD GAS O2 SATURATION 93.6 mmHg (95-98); ARTERIAL BLOOD GAS BASE EXCESS -9.7 mmol/L (-2-2); ARTERIAL BLOOD GAS PO2 85.3 mmHg (80-100)
[2020-05-23 19:37] LABS: ALLENS TEST POSITIVE
[2020-05-23 19:41] LABS: VENT MODE A/C; VENT RATE 26
[2020-05-23 19:45] LABS: ARTERIAL BLOOD GAS pH 7.167 (7.350-7.450)
--- NOTE | 2020-05-23 21:51 | PN ---
Progress Note, Physician - Current Medication List Current Medications: Active Medications Albuterol Sulfate (Ventolin Hfa Inhaler -) 2 puff IH Q4H PRN PRN Reason: SHORT OF BREATH/WHEEZING Alprazolam (Xanax -) 0.25 mg PO ONCE PRN PRN Reason: ANXIETY Stop: 05/24/20 09:11 Last Admin: 05/23/20 09:51 Dose: 0.25 mg Documented by: Dexamethasone Sodium Phosphate (Decadron Injection -) 6 mg IVPUSH DAILY [facility] Last Admin: 05/23/20 10:01 Dose: 6 mg Documented by: Diltiazem HCl 125 mg/ Dextrose 125 mls @ 5 mls/hr IVPB TITR ELIS; Protocol Last Titration: 05/23/20 19:00 Dose: 15 mg/hr, 15 mls/hr Documented by: Vecuronium [place] (Vecuronium [place]) 100 mg in 100 mls @ 4.899 mls/hr IVPB TITR ELIS; Protocol Last Titration: 05/23/20 19:00 Dose: 0.8 mcg/kg/min, 3.919 mls/hr Documented by: Propofol (Diprivan -) 1,000,000 mcg in 100 mls @ 2.449 mls/hr IVPB TITR ELIS; Protocol Last Titration: 05/23/20 19:00 Dose: 25 mcg/kg/min, 12.247 mls/hr Documented by: Piperacillin Sod/Tazobactam (Sod 4.5 gm/ Dextrose) 100 mls @ 200 mls/hr IVPB Q8H-IV ELIS; Protocol Last Admin: 05/23/20 19:04 Dose: 200 mls/hr Documented by: Metoprolol Tartrate (Lopressor Injection -) 5 mg IVPUSH Q4H PRN PRN Reason: TACHYCARDIA Pantoprazole Sodium (Protonix Iv) 40 mg IVPUSH DAILY [facility] Last Admin: 05/23/20 10:01 Dose: 40 mg Documented by: - Objective Vital Signs: Vital Signs Temperature 98.4 F 05/23/20 16:00 Pulse Rate 102 H 05/23/20 20:00 Respiratory Rate 30 H 05/23/20 20:30 Blood Pressure 102/64 05/23/20 20:00 O2 Sat by Pulse Oximetry (%) 98 05/23/20 20:30 Labs: CBC, BMP 05/23/20 05:53 05/23/20 05:53 INR, PTT INR 7.11 (0.83-1.09) H* 05/23/20 05:53 Problem List - Problems (1) Acute hypoxemic respiratory failure Code(s): J96.01 - ACUTE RESPIRATORY FAILURE WITH HYPOXIA (2) Bilateral pneumonia Code(s): J18.9 - PNEUMONIA, UNSPECIFIED ORGANISM (3) COVID-19 with multiple comorbidities Code(s): U07.1 - COVID-19 (4) Atrial fibrillation Code(s): I48.91 - UNSPECIFIED ATRIAL FIBRILLATION Qualifiers: Atrial fibrillation type: chronic (5) CLL (chronic lymphocytic leukemia) Code(s): C91.10 - CHRONIC LYMPHOCYTIC LEUK OF B-CELL TYPE NOT ACHIEVE REMIS (6) HLD (hyperlipidemia) Code(s): E78.5 - HYPERLIPIDEMIA, UNSPECIFIED (7) HTN (hypertension) Code(s): I10 - ESSENTIAL (PRIMARY) HYPERTENSION
[2020-05-24] MEDS ORDERED: PIPERACILLIN/TAZOBACTAM 4.5 GM VIAL IVPB ONE ×2 (00:24→09:31)
[2020-05-24] MEDS ORDERED: DEXTROSE 5%-WATER 100 ML IVPB ONE ×3 (00:24→13:51)
[2020-05-24 00:44] LABS: ARTERIAL BLD GAS O2 SATURATION 89.5 mmHg (95-98); ARTERIAL BLOOD GAS BASE EXCESS -8.3 mmol/L (-2-2); ARTERIAL BLOOD GAS PO2 70.6 mmHg (80-100)
[2020-05-24 00:48] LABS: VENT MODE A/C
[2020-05-24 00:49] LABS: VENT RATE 30
[2020-05-24 00:51] LABS: ARTERIAL BLOOD GAS pH 7.176 (7.350-7.450)
[2020-05-24] MEDS: PIPERACILLIN/TAZOB 4.5 GM 4.5 GM in DEXTROSE 5%-WATER 100 ML IVPB SCH ×2 (01:36→10:18)
[2020-05-24] MEDS ORDERED: SODIUM BICARBONATE 4.2% 5 MEQ/10 ML DISP.SYRIN IVPUSH ONE (01:40)
[2020-05-24 04:43] LABS: ARTERIAL BLD GAS O2 SATURATION 93.4 mmHg (95-98); ARTERIAL BLOOD GAS BASE EXCESS -9.8 mmol/L (-2-2); ARTERIAL BLOOD GAS PO2 81.7 mmHg (80-100)
[2020-05-24 04:45] LABS: VENT MODE A/C; VENT RATE 34
[2020-05-24 04:47] LABS: ARTERIAL BLOOD GAS pH 7.198 (7.350-7.450)
[2020-05-24] MEDS ORDERED: LACTATED RINGERS SOLUTION 1000 ML INFUS.BAG IV ONE (05:42)
--- NOTE | 2020-05-24 05:45 | PN ---
Progress Note, Physician Chief Complaint: intubated, paralyzed on Vec Acidemic now in acute renal failure On 100% FIO2 Hypotensive with MAP hovering 60, pressors being considered by ICU team. TELE: Rate controlled AF History of Present Illness: COVID PNA AF bio AVR CLL SH: non smoker - Current Medication List Current Medications: Active Medications Albuterol Sulfate (Ventolin Hfa Inhaler -) 2 puff IH Q4H PRN PRN Reason: SHORT OF BREATH/WHEEZING Alprazolam (Xanax -) 0.25 mg PO ONCE PRN PRN Reason: ANXIETY Stop: 05/24/20 09:11 Last Admin: 05/23/20 09:51 Dose: 0.25 mg Documented by: Dexamethasone Sodium Phosphate (Decadron Injection -) 6 mg IVPUSH DAILY ELIS Last Admin: 05/23/20 10:01 Dose: 6 mg Documented by: Diltiazem HCl 125 mg/ Dextrose 125 mls @ 5 mls/hr IVPB TITR ELIS; Protocol Last Titration: 05/24/20 01:42 Dose: 10 mg/hr, 10 mls/hr Documented by: Vecuronium [place] (Vecuronium [place]) 100 mg in 100 mls @ 4.899 mls/hr IVPB TITR ELIS; Protocol Last Titration: 05/23/20 19:00 Dose: 0.8 mcg/kg/min, 3.919 mls/hr Documented by: Propofol (Diprivan -) 1,000,000 mcg in 100 mls @ 2.449 mls/hr IVPB TITR ELIS; Protocol Last Titration: 05/24/20 01:43 Dose: 20 mcg/kg/min, 9.798 mls/hr Documented by: Piperacillin Sod/Tazobactam (Sod 4.5 gm/ Dextrose) 100 mls @ 200 mls/hr IVPB Q8H-IV ELIS; Protocol Last Admin: 05/24/20 01:36 Dose: 200 mls/hr Documented by: Metoprolol Tartrate (Lopressor Injection -) 5 mg IVPUSH Q4H PRN PRN Reason: TACHYCARDIA Pantoprazole Sodium (Protonix Iv) 40 mg IVPUSH DAILY ELIS Last Admin: 05/23/20 10:01 Dose: 40 mg Documented by: - Objective Vital Signs: Vital Signs Temperature 99.4 F 05/24/20 04:00 Pulse Rate 100 H 11/06/20 04:00 Respiratory Rate 34 H 05/24/20 05:00 Blood Pressure 81/54 L 05/24/20 05:34 O2 Sat by Pulse Oximetry (%) 95 05/24/20 05:00 HENT: Yes: Other (+ ETT) Cardiovascular: Yes: Pulse Irregular Respiratory: Yes: Other (= breath sounds) Gastrointestinal: Yes: Soft Edema: No Peripheral Pulses WNL: Yes Wound/Incision: Yes: Other (intubated, sedated on paralytics) Psychiatric: Yes: Other (cannot be assessed) Labs: CBC, BMP 05/23/20 05:53 05/23/20 05:53 INR, PTT INR 7.11 (0.83-1.09) H* 05/23/20 05:53 Laboratory Tests 05/19/20 05/19/20 05/24/20 09:37 14:45 04:30 WBC Hgb Plt Count INR ABG pH 7.198 L* ABG pCO2 47.70 H ABG O2 Sat (Measured) 93.4 L Oxygen Flow Rate 100% Sodium Potassium BUN Creatinine Phosphorus Magnesium COVID-19 (DAWIT) Detected H Influenza A (Rapid) Negative Influenza B (Rapid) Negative 05/24/20 05/24/20 05/24/20 05:45 05:45 05:45 WBC 423.9 H* Hgb 11.0 L Plt Count 102 L INR Pending ABG pH ABG pCO2 ABG O2 Sat (Measured) Oxygen Flow Rate Sodium 141 Potassium 6.0 H BUN 68.3 H Creatinine 2.9 H Phosphorus 8.3 H Magnesium 3.1 H COVID-19 (DAWIT) Influenza A (Rapid) Influenza B (Rapid) - ....Imaging Chest X-ray: Report Reviewed (slight improvement), Image Reviewed EKG: Image Reviewed Assessment/Plan echo 11/2018: nl lv/rv, maritza, mod-sev mr/tr, avr wnl, rvsp 30-40; on review by Dr Olivera and Hamida, MR and TR do not appear severe a/p: 74M h/o CHF, CLL, CVA, s/p bioAVR, afib p/w sob and COVID PNA now with acute respiratory failure requiring intubation and acute renal failure, acidemia covid PNA, hypoxia, sob: -no signs chf, acs -Intubated for acute hypoxic respiratory failure -cont abx per ID. ecg with rbbb so qtc not as reliable but manually calculated appears normal, monitor on tele. -Also receiving steroids as per critical care team s/p bioAVR - nl fcn on recent echo - cont ac per inr afib: now controlled - rvr here likely due to infection, resp distress. Cont dilt gtt for now. Add oral agent when able to take pills. Cont tele. - cont coumadin per inr chronic diastolic HF: - euvolemic presently - sob sec to PNA acute renal failure: in setting sepsis/ hypotension, likely ATN -Renal consulted. Overall prognosis is guarded.
[2020-05-24] MEDS ORDERED: SODIUM BICARBONATE 8.4% 50 MEQ/50 ML DISP.SYRIN IVPUSH ONE (06:37)
[2020-05-24] MEDS: NOREPINEPHRINE BITARTRATE 16,000 MCG in SODIUM CHLORIDE 484 ML IV SCH (07:13)
[2020-05-24 07:30] LABS: HEMATOCRIT 40.8 % (35.4-49); MCH 24.9 pg (25.7-33.7); MEAN CELL VOLUME 92.2 fl (80-96); MEAN PLT VOLUME 8.8 fl (7.5-11.1); PLATELET COUNT 102 K/MM3 (134-434); RBC 4.43 M/mm3 (4.00-5.60); RDW 18.9 % (11.9-15.9)
[2020-05-24 07:54] LABS: ALBUMIN 2.9 g/dl (3.4-5.0)
[2020-05-24 07:58] LABS: BILIRUBIN,TOTAL 0.7 mg/dL (0.2-1); CREATININE 2.9 mg/dL (0.55-1.3); TOT PROT 5.6 g/dl (6.4-8.2)
[2020-05-24 08:01] LABS: BLOOD UREA NITROGEN 68.3 mg/dL (7-18)
[2020-05-24 08:28] LABS: INR 11.72 (0.83-1.09)
[2020-05-24 08:41] LABS: PHOSPHOROUS 8.3 mg/dL (2.5-4.9)
[2020-05-24 08:42] LABS: MAGNESIUM 3.1 mg/dL (1.8-2.4)
[2020-05-24] MEDS: DILTIAZEM INJECTION 125 MG in DEXTROSE 5%-WATER - 100 ML IVPB SCH (10:16)
[2020-05-24] MEDS: DEXAMETHASONE SOD PHOSPHATE 4 MG/1 ML VIAL IVPUSH SCH (10:19)
[2020-05-24] MEDS: PANTOPRAZOLE SODIUM 40 MG VIAL IVPUSH SCH (10:19)
[2020-05-24] MEDS ORDERED: INSULIN (NOVOLOG) ASPART 100 UNITS/ML 10ML VIAL SQ ONE (11:12)
[2020-05-24] MEDS ORDERED: DEXTROSE 50%-WATER - 25 GM/50 ML VIAL IVPUSH ONE (11:13)
[2020-05-24] MEDS ORDERED: CALCIUM GLUCONATE 10% - 1,000 MG/10 ML VIAL IVPB ONE (11:13)
[2020-05-24] MEDS ORDERED: DEXTROSE 50%-WATER 25 GM/50 ML DISP.SYRIN ONE (11:33)
[2020-05-24 11:38] LABS: ANISOCYTOSIS 1+; MACROCYTOSIS 0; OVALOCYTE 1+; PLATELET ESTIMATE DECREASED
--- NOTE | 2020-05-24 11:53 | PN ---
Teaching Attending Note Name of Resident: Santy Kumar ATTENDING PHYSICIAN STATEMENT I saw and evaluated the patient. I reviewed the resident's note and discussed the case with the resident. I agree with the resident's findings and plan as documented. SUBJECTIVE: Patient seen and examined in the ICU. Intubated and sedated. AC Mode of vent: LTTV Ppeak: 32. PPalt: 32 Significant clinical worsening. ARF / WBC 424 / NE for hemodynamic support. IV Cardizem. Intake & Output 05/21/20 05/22/20 05/23/20 05/24/20 23:59 23:59 23:59 23:59 Intake Total 1432 862 747.6 Output Total 1470 1150 Balance -38 -288 747.6 Weight 180 lb 180 lb 202 lb 13.204 oz Last Vital Signs Temp Pulse Resp BP Pulse Ox 99.8 F H 92 H 30 H 86/55 L 100 05/24/20 08:00 05/24/20 08:00 05/24/20 09:00 05/24/20 08:00 05/24/20 09:00 Active Medications Albuterol Sulfate (Ventolin Hfa Inhaler -) 2 puff IH Q4H PRN PRN Reason: SHORT OF BREATH/WHEEZING Dexamethasone Sodium Phosphate (Decadron Injection -) 6 mg IVPUSH DAILY [facility] Last Admin: 05/24/20 10:19 Dose: 6 mg Documented by: Diltiazem HCl 125 mg/ Dextrose 125 mls @ 5 mls/hr IVPB TITR ELIS; Protocol Last Admin: 05/24/20 10:16 Dose: Not Given Documented by: Vecuronium [place] (Vecuronium [place]) 100 mg in 100 mls @ 4.899 mls/hr IVPB TITR ELIS; Protocol Last Titration: 05/23/20 19:00 Dose: 0.8 mcg/kg/min, 3.919 mls/hr Documented by: Propofol (Diprivan -) 1,000,000 mcg in 100 mls @ 2.449 mls/hr IVPB TITR ELIS; Protocol Last Titration: 05/24/20 01:43 Dose: 20 mcg/kg/min, 9.798 mls/hr Documented by: Piperacillin Sod/Tazobactam (Sod 4.5 gm/ Dextrose) 100 mls @ 200 mls/hr IVPB Q8H-IV [facility]; Protocol Last Admin: 05/24/20 10:18 Dose: 200 mls/hr Documented by: Norepinephrine Bitartrate 16, (000 mcg/ Sodium Chloride) 500 mls @ 9.375 mls/hr IV TITR ELIS; Protocol Last Titration: 05/24/20 07:20 Dose: 2 mcg/min, 3.75 mls/hr Documented by: Metoprolol Tartrate (Lopressor Injection -) 5 mg IVPUSH Q4H PRN PRN Reason: TACHYCARDIA Pantoprazole Sodium (Protonix Iv) 40 mg IVPUSH DAILY [facility] Last Admin: 05/24/20 10:19 Dose: 40 mg Documented by: Constitutional: Yes: Intubated and sedated Eyes: Yes: WNL, Conjunctiva Clear, EOM Intact HENT: Yes: WNL, Atraumatic, Normocephalic Neck: Yes: WNL, Supple, Trachea Midline Cardiovascular: Yes: WNL, Tachycardia, Pulse Irregular, S1, S2 Respiratory: Yes: Intubated, bilateral coarse rhonchi Gastrointestinal: Yes: WNL, Normal Bowel Sounds, Soft ...Rectal Exam: Yes: Deferred Renal/: Yes: WNL Breast(s): Yes: WNL Musculoskeletal: Yes: Muscle Weakness Extremities: Yes: WNL Edema: No Peripheral Pulses WNL: Yes Integumentary: Yes: WNL ...Motor Strength: WNL Psychiatric: Yes: WNL Labs: Laboratory Results - last 24 hr 05/23/20 05/23/20 05/23/20 05:53 15:50 19:25 WBC RBC Hgb Hct MCV MCH MCHC RDW Plt Count MPV Absolute Neuts (auto) Neutrophils % Lymphocytes % Monocytes % Eosinophils % Basophils % Nucleated RBC % PT with INR INR Fibrinogen Anticoagulation Therapy No Result Required. No Result Required. Puncture Site No Result Required. No Result Required. Patient Temperature No Result Required. No Result Required. ABG pH 7.137 L* 7.167 L* ABG pCO2 62.70 H 53.90 H ABG pO2 65.8 L 85.3 ABG HCO3 20.7 L 19.1 L ABG O2 Sat (Measured) 85.9 L 93.6 L ABG O2 Content No Result Required. No Result Required. ABG Base Excess -9.0 L -9.7 L Nathen Test Positive Positive Patient On Oxygen Yes Yes O2 Delivery Device No Result Required. Vent Oxygen Flow Rate 100% 100% Vent Mode A/c A/c Vent Rate 22 26 Mechanical Rate No Result Required. No Result Required. PEEP 10.0 10.0 Pressure Support Vent 500 500 Sodium 143 Potassium 4.3 Chloride 108 H Carbon Dioxide 25 Anion Gap 10 BUN 35.2 H Creatinine 0.7 Est GFR (CKD-EPI)AfAm 106.99 Est GFR (CKD-EPI)NonAf 92.31 Random Glucose 113 H Calcium 9.0 Phosphorus 3.0 Magnesium 2.5 H Total Bilirubin 0.9 AST 17 ALT 16 Alkaline Phosphatase 100 LD Total 471 H C-Reactive Protein 12.1 H Total Protein 6.0 L Albumin 3.0 L 05/24/20 05/24/20 05/24/20 00:15 04:30 05:45 WBC RBC Hgb Hct MCV MCH MCHC RDW Plt Count MPV Absolute Neuts (auto) Neutrophils % Lymphocytes % Monocytes % Eosinophils % Basophils % Nucleated RBC % PT with INR INR Fibrinogen 115.0 L Anticoagulation Therapy No Result Required. No Result Required. Puncture Site Arterial line Arterial line Patient Temperature No Result Required. No Result Required. ABG pH 7.176 L* 7.198 L* ABG pCO2 56.90 H 47.70 H ABG pO2 70.6 L 81.7 ABG HCO3 20.6 L 18.1 L ABG O2 Sat (Measured) 89.5 L 93.4 L ABG O2 Content No Result Required. No Result Required. ABG Base Excess -8.3 L -9.8 L Nathen Test No Result Required. Not applicable Patient On Oxygen Yes Yes O2 Delivery Device Vent Vent Oxygen Flow Rate 100% 100% Vent Mode A/c A/c Vent Rate 30 34 Mechanical Rate Yes Yes PEEP 10.0 10.0 Pressure Support Vent 500 500 Sodium Potassium Chloride Carbon Dioxide Anion Gap BUN Creatinine Est GFR (CKD-EPI)AfAm Est GFR (CKD-EPI)NonAf Random Glucose Calcium Phosphorus Magnesium Total Bilirubin AST ALT Alkaline Phosphatase LD Total C-Reactive Protein Total Protein Albumin 05/24/20 05/24/20 05/24/20 05:45 05:45 05:45 WBC 536.0 H* RBC 4.43 Hgb 11.0 L Hct 40.8 MCV 92.2 MCH 24.9 L MCHC 27.0 L RDW 18.9 H Plt Count 102 L MPV 8.8 D Absolute Neuts (auto) Neutrophils % Lymphocytes % Monocytes % Eosinophils % Basophils % Nucleated RBC % 0 PT with INR 132.00 H INR 11.72 H* Fibrinogen Anticoagulation Therapy Puncture Site Patient Temperature ABG pH ABG pCO2 ABG pO2 ABG HCO3 ABG O2 Sat (Measured) ABG O2 Content ABG Base Excess Nathen Test Patient On Oxygen O2 Delivery Device Oxygen Flow Rate Vent Mode Vent Rate Mechanical Rate PEEP Pressure Support Vent Sodium 141 Potassium 6.0 H Chloride 108 H Carbon Dioxide 23 Anion Gap 10 BUN 68.3 H Creatinine 2.9 H Est GFR (CKD-EPI)AfAm 23.45 Est GFR (CKD-EPI)NonAf 20.23 Random Glucose 162 H Calcium 8.0 L Phosphorus 8.3 H Magnesium 3.1 H Total Bilirubin 0.7 AST 36 ALT 25 Alkaline Phosphatase 88 LD Total C-Reactive Protein 14.8 H Total Protein 5.6 L Albumin 2.9 L Imaging - Results Chest X-ray: Image Reviewed (Personal read: 05/19 Bilateral opacities) Problem List - Problems (1) COVID-19 with multiple comorbidities Code(s): U07.1 - COVID-19 (2) Acute hypoxemic respiratory failure Code(s): J96.01 - ACUTE RESPIRATORY FAILURE WITH HYPOXIA (3) Abnormal INR Code(s): R79.1 - ABNORMAL COAGULATION PROFILE (4) Atrial fibrillation Code(s): I48.91 - UNSPECIFIED ATRIAL FIBRILLATION Qualifiers: Atrial fibrillation type: chronic (5) CLL (chronic lymphocytic leukemia) Code(s): C91.10 - CHRONIC LYMPHOCYTIC LEUK OF B-CELL TYPE NOT ACHIEVE REMIS (6) Thrombocytopenia Code(s): D69.6 - THROMBOCYTOPENIA, UNSPECIFIED (7) Weakness Code(s): R53.1 - WEAKNESS Assessment/Plan ARF Severe coagulopathy Worsening ARDS No evidence of PTX on repeat CXR LTTV strategy : allow for permissive hypercapnea: Maintain Pplat ideally below 30 Renal evaluation has been called and HyperK being managed medically Close follow up of his K+ level ABX per ID Heme follow up for INR: received Vitamin K (?) FFP but could induce thrombosis Will hold on further Remdesivir : No mortality data and his liver synthesis is damaged Able to oxygenate so little benefit of prone positioning given his overall condition and outcome Strict I/O Hold enteral feeds for now PPI Requires continued ICU monitoring Overall prognosis for survival is grave. There would be no benefit from CPR in this critically ill patient with MOF. Dr Cano Critical care time spent in reviewing chart, evaluating patient and formulating plan - 36 minutes.
--- NOTE | 2020-05-24 12:14 | PN ---
Physical Exam: SUBJECTIVE: Patient seen and examined at bedside. WBC count doubled to 526. INR increased to 11.7. Hem-Onc will be called regarding plan considering elevated INR. Nephro consulted for Creatinine increase from 0.[address] Gupta explained that the change to Zosyn could be another possible etiology, so changing the antibiotic from Zosyn would be preferred. Zosyn discontinued by ID in the morning. Fibrinogen is low at 115 and high INR suggestive of DIC (Disseminated Intravascular Coagulation). Dr. Victoria was talked to, who suggested to consider cryoprecipitate to keep the fibrinogen above 200, and that 2.5 of IV Vitamin K would be okay. Vitamin K given, but cryoprecipitate not given currently due to consideration of how much extra fluid the patient would get with the cryoprecipitate. IV lines not oozing currently. Hemodialysis done in the evening. The patient was not accepted to [facility] for transfer today per Dr. Coleman. OBJECTIVE: Vital Signs Period Temp Pulse Resp BP Sys/Estevez Pulse Ox Last 24 Hr 98.4 F-99.8 F 91-140 22-126 81-142/54-93 94-100 GENERAL: Intubated and sedated. HEAD: Normal with no signs of trauma. ENT: Ears normal, nares patent. NECK: Trachea midline, full range of motion, supple. LUNGS: Decreased breath sounds. Coarse breath sounds bilaterally. HEART: Irregular rhythm. Tachycardic. ABDOMEN: Nondistended, normoactive bowel sounds. EXTREMITIES: 2+ pulses, warm, well-perfused, no edema. NEUROLOGICAL: Intubated and sedated. PSYCH: Normal mood, normal affect. SKIN: Warm, dry, normal turgor. Laboratory Results - last 24 hr 05/23/20 05/23/20 05/23/20 05:53 15:50 19:25 WBC RBC Hgb Hct MCV MCH MCHC RDW Plt Count MPV Absolute Neuts (auto) Neutrophils % Neutrophils % (Manual) Band Neutrophils % Lymphocytes % Lymphocytes % (Manual) Monocytes % Monocytes % (Manual) Eosinophils % Eosinophils % (Manual) Basophils % Basophils % (Manual) Myelocytes % (Man) Promyelocytes % (Man) Blast Cells % (Manual) Nucleated RBC % Metamyelocytes Hypochromia Platelet Estimate Polychromasia Anisocytosis Microcytosis Macrocytosis Ovalocytes [place] Cells PT with INR INR Fibrinogen Anticoagulation Therapy No Result Required. No Result Required. Puncture Site No Result Required. No Result Required. Patient Temperature No Result Required. No Result Required. ABG pH 7.137 L* 7.167 L* ABG pCO2 62.70 H 53.90 H ABG pO2 65.8 L 85.3 ABG HCO3 20.7 L 19.1 L ABG O2 Sat (Measured) 85.9 L 93.6 L ABG O2 Content No Result Required. No Result Required. ABG Base Excess -9.0 L -9.7 L Nathen Test Positive Positive Patient On Oxygen Yes Yes O2 Delivery Device No Result Required. Vent Oxygen Flow Rate 100% 100% Vent Mode A/c A/c Vent Rate 22 26 Mechanical Rate No Result Required. No Result Required. PEEP 10.0 10.0 Pressure Support Vent 500 500 Sodium 143 Potassium 4.3 Chloride 108 H Carbon Dioxide 25 Anion Gap 10 BUN 35.2 H Creatinine 0.7 Est GFR (CKD-EPI)AfAm 106.99 Est GFR (CKD-EPI)NonAf 92.31 Random Glucose 113 H Calcium 9.0 Phosphorus 3.0 Magnesium 2.5 H Total Bilirubin 0.9 AST 17 ALT 16 Alkaline Phosphatase 100 LD Total 471 H C-Reactive Protein 12.1 H Total Protein 6.0 L Albumin 3.0 L 05/24/20 05/24/20 05/24/20 00:15 04:30 05:45 WBC RBC Hgb Hct MCV MCH MCHC RDW Plt Count MPV Absolute Neuts (auto) Neutrophils % Neutrophils % (Manual) Band Neutrophils % Lymphocytes % Lymphocytes % (Manual) Monocytes % Monocytes % (Manual) Eosinophils % Eosinophils % (Manual) Basophils % Basophils % (Manual) Myelocytes % (Man) Promyelocytes % (Man) Blast Cells % (Manual) Nucleated RBC % Metamyelocytes Hypochromia Platelet Estimate Polychromasia Anisocytosis Microcytosis Macrocytosis Ovalocytes [place] Cells PT with INR INR Fibrinogen 115.0 L Anticoagulation Therapy No Result Required. No Result Required. Puncture Site Arterial line Arterial line Patient Temperature No Result Required. No Result Required. ABG pH 7.176 L* 7.198 L* ABG pCO2 56.90 H 47.70 H ABG pO2 70.6 L 81.7 ABG HCO3 20.6 L 18.1 L ABG O2 Sat (Measured) 89.5 L 93.4 L ABG O2 Content No Result Required. No Result Required. ABG Base Excess -8.3 L -9.8 L Nathen Test No Result Required. Not applicable Patient On Oxygen Yes Yes O2 Delivery Device Vent Vent Oxygen Flow Rate 100% 100% Vent Mode A/c A/c Vent Rate 30 34 Mechanical Rate Yes Yes PEEP 10.0 10.0 Pressure Support Vent 500 500 Sodium Potassium Chloride Carbon Dioxide Anion Gap BUN Creatinine Est GFR (CKD-EPI)AfAm Est GFR (CKD-EPI)NonAf Random Glucose Calcium Phosphorus Magnesium Total Bilirubin AST ALT Alkaline Phosphatase LD Total C-Reactive Protein Total Protein Albumin 05/24/20 05/24/20 05/24/20 05:45 05:45 05:45 WBC 536.0 H* RBC 4.43 Hgb 11.0 L Hct 40.8 MCV 92.2 MCH 24.9 L MCHC 27.0 L RDW 18.9 H Plt Count 102 L MPV 8.8 D Absolute Neuts (auto) 25.2 H Neutrophils % Neutrophils % (Manual) 4.7 L Band Neutrophils % 0.0 Lymphocytes % Lymphocytes % (Manual) 95.3 H* Monocytes % Monocytes % (Manual) 0 L Eosinophils % Eosinophils % (Manual) 0.0 Basophils % Basophils % (Manual) 0.0 Myelocytes % (Man) 0 Promyelocytes % (Man) 0 Blast Cells % (Manual) 0 Nucleated RBC % 0 Metamyelocytes 0 Hypochromia 0 Platelet Estimate Decreased Polychromasia 0 Anisocytosis 1+ Microcytosis 1+ Macrocytosis 0 Ovalocytes 1+ Yury Cells 1+ PT with INR 132.00 H INR 11.72 H* Fibrinogen Anticoagulation Therapy Puncture Site Patient Temperature ABG pH ABG pCO2 ABG pO2 ABG HCO3 ABG O2 Sat (Measured) ABG O2 Content ABG Base Excess Nathen Test Patient On Oxygen O2 Delivery Device Oxygen Flow Rate Vent Mode Vent Rate Mechanical Rate PEEP Pressure Support Vent Sodium 141 Potassium 6.0 H Chloride 108 H Carbon Dioxide 23 Anion Gap 10 BUN 68.3 H Creatinine 2.9 H Est GFR (CKD-EPI)AfAm 23.45 Est GFR (CKD-EPI)NonAf 20.23 Random Glucose 162 H Calcium 8.0 L Phosphorus 8.3 H Magnesium 3.1 H Total Bilirubin 0.7 AST 36 ALT 25 Alkaline Phosphatase 88 LD Total C-Reactive Protein 14.8 H Total Protein 5.6 L Albumin 2.9 L Active Medications Generic Name Dose Route Start Last Admin Trade Name Freq PRN Reason Stop Dose Admin Albuterol Sulfate 2 puff 05/22/20 09:31 Ventolin Hfa Inhaler - IH Q4H PRN SHORT OF BREATH/WHEEZING Dexamethasone Sodium Phosphate 6 mg 05/20/20 10:00 05/24/20 10:19 Decadron Injection - IVPUSH 6 mg DAILY ELIS Administration Diltiazem HCl 125 mg/ Dextrose 125 mls @ 5 mls/hr 05/23/20 09:15 05/24/20 10:16 IVPB Not Given TITR ELIS Protocol 5 MG/HR Vecuronium [place] 100 mg in 100 mls @ 4.899 mls/hr 05/23/20 14:00 05/23/20 19:00 Vecuronium [place] IVPB 0.8 mcg/kg/min TITR ELIS 3.919 mls/hr Titration Protocol 1 MCG/KG/MIN Propofol 1,000,000 mcg in 100 mls @ 2.449 mls/hr 05/23/20 14:00 05/24/20 01:43 Diprivan - IVPB 20 mcg/kg/min TITR ELIS 9.798 mls/hr Titration Protocol 5 MCG/KG/MIN Piperacillin Sod/Tazobactam 100 mls @ 200 mls/hr 05/23/20 18:00 05/24/20 10:18 Sod 4.5 gm/ Dextrose IVPB 200 mls/hr Q8H-IV ELIS Administration Protocol Norepinephrine Bitartrate 16, 500 mls @ 9.375 mls/hr 05/24/20 08:30 05/24/20 07:20 000 mcg/ Sodium Chloride IV 2 mcg/min TITR ELIS 3.75 mls/hr Titration Protocol 5 MCG/MIN Metoprolol Tartrate 5 mg 05/20/20 12:22 Lopressor Injection - IVPUSH Q4H PRN TACHYCARDIA Pantoprazole Sodium 40 mg 05/19/20 14:15 05/24/20 10:19 Protonix Iv IVPUSH 40 mg DAILY ELIS Administration ASSESSMENT/PLAN: 74 year old male patient with past medical history that includes HTN, hyperlipidemia, atrial fibrillation (on coumadin), aortic stenosis s/p bioAVR, h/o CVA, CLL (not on meds for last 2 months per his [facility] oncologist), who is admitted to the ICU for hypoxia 2/2 COVID. NEURO - Intubated and sedated PULM - Intubated and sedated - Decadron 6mg IV daily - Remdesivir 100mg - 5 given total - C-plasma already given - Meropenem 1gm BID - Nebulized Albuterol 2 puffs Q4H IH PRN CARDIO - Monitoring on telemetry - Has Atrial Fibrillation - Diltiazem Drip - Also Lopressor 5mg IV Q4 PRN ID - COVID positive - Decadron 6mg IV daily - Remdesivir 100mg - 5 given total - C-plasma already given - Meropenem 1gm BID - Clinical condition deteriorating DVT PPx - INR 11.72 with plan to start Eliquis if the INR < 3.0 FEN - Avoiding IV fluids due to risk of COVID induced pulmonary capillary leak - Monitor and replete electrolytes - Daily: CBC, CMP, Mg, Phos, PT/INR, PTT, LDH, Fibrinogen TLD - Intubated 05/23/2020 - Right IJ central line 05/23/2020 - Right Axillary A-Line 05/23/2020 - Right Femoral central line 05/24/2020 Grim Prognosis (Mortality risk at least 80% per Pulm) Visit type - Emergency Visit Emergency Visit: Yes ED Registration Date: 05/19/20 Care time: The patient presented to the Emergency Department on the above date and was hospitalized for further evaluation of their emergent condition. - New Patient This patient is new to me today: No - Critical Care Critical Care patient: Yes Total Critical Care Time (in minutes): 40 Critical Care Statement: The care of this patient involved high complexity decision making to prevent further life threatening deterioration of the patient's condition and/or to evaluate & treat vital organ system(s) failure or risk of failure. - Discharge Referral Referred to [facility] No - Medication Review Med list reviewed for High Risk Meds patients 65 and older: Yes ATTENDING PHYSICIAN STATEMENT I saw and evaluated the patient. I reviewed the resident's note and discussed the case with the resident. I agree with the resident's findings and plan as documented. SUBJECTIVE: OBJECTIVE: ASSESSMENT AND PLAN:
[2020-05-24 12:54] LABS: ARTERIAL BLD GAS O2 SATURATION 57.5 mmHg (95-98); ARTERIAL BLOOD GAS BASE EXCESS -13.4 mmol/L (-2-2); ARTERIAL BLOOD GAS PO2 43.1 mmHg (80-100)
[2020-05-24 12:55] LABS: ALLENS TEST POSITIVE; VENT MODE AC
[2020-05-24 12:56] LABS: VENT RATE 30
[2020-05-24] MEDS ORDERED: PHYTONADIONE 10 MG/1 ML AMP IVPB ONE (13:00)
[2020-05-24] MEDS: SODIUM BICARBONATE 8.4% 50 MEQ/50 ML DISP.SYRIN IVPUSH SCH ×2 (13:17→19:00)
[2020-05-24] MEDS: PROPOFOL 1,000,000 MCG/100 ML VIAL IVPB SCH (13:18)
--- NOTE | 2020-05-24 13:19 | PN ---
Progress Note (short form) - Note Progress Note: sedated, intubated pressors strted overnight on levophed, diltiazem drips sedated fi02 100% temp now 100.6 Vital Signs Period Temp Pulse Resp BP Sys/Estevez Pulse Ox Last 24 Hr 98.4 F-99.8 F 85-140 22-126 81-142/54-93 94-100 cor-rrr lungs decreased bs at bases abd soft, no distention ext no edema ballesteros CBC,CMP WBC 536.0 K/mm3 (4.0-10.0) H* 05/24/20 05:45 RBC 4.43 M/mm3 (4.00-5.60) 05/24/20 05:45 Hgb 11.0 GM/dL (11.7-16.9) L 05/24/20 05:45 Hct 40.8 % (35.4-49) 05/24/20 05:45 MCV 92.2 fl (80-96) 05/24/20 05:45 MCH 24.9 pg (25.7-33.7) L 05/24/20 05:45 MCHC 27.0 g/dl (32.0-35.9) L 05/24/20 05:45 RDW 18.9 % (11.9-15.9) H 05/24/20 05:45 Plt Count 102 K/MM3 (134-434) L 05/24/20 05:45 MPV 8.8 fl (7.5-11.1) D 05/24/20 05:45 Absolute Neuts (auto) 25.2 K/mm3 (1.5-8.0) H 05/24/20 05:45 Neutrophils % % (42.8-82.8) 05/24/20 05:45 Neutrophils % (Manual) 4.7 % (42.8-82.8) L 05/24/20 05:45 Band Neutrophils % 0.0 % 05/24/20 05:45 Lymphocytes % % (8-40) 05/24/20 05:45 Lymphocytes % (Manual) 95.3 % (8-40) H* 05/24/20 05:45 Monocytes % % (3.8-10.2) 05/24/20 05:45 Monocytes % (Manual) 0 % (3.8-10.2) L 05/24/20 05:45 Eosinophils % % (0-4.5) 05/24/20 05:45 Eosinophils % (Manual) 0.0 % (0-4.5) 05/24/20 05:45 Basophils % % (0-2.0) 05/24/20 05:45 Basophils % (Manual) 0.0 % (0-2.0) 05/24/20 05:45 Myelocytes % (Man) 0 % (0-2) 05/24/20 05:45 Promyelocytes % (Man) 0 % (0-2) 05/24/20 05:45 Blast Cells % (Manual) 0 % (0-0) 05/24/20 05:45 Nucleated RBC % 0 % (0-0) 05/24/20 05:45 Metamyelocytes 0 % (0-2) 05/24/20 05:45 Differential Comment See commed 05/19/20 09:37 Hypochromia 0 05/24/20 05:45 Toxic Granulation 2+ 05/20/20 06:30 Platelet Estimate Decreased 05/24/20 05:45 Polychromasia 0 05/24/20 05:45 Poikilocytosis 1+ 05/23/20 05:53 Anisocytosis 1+ 05/24/20 05:45 Microcytosis 1+ 05/24/20 05:45 Macrocytosis 0 05/24/20 05:45 Tear Drop Cells 1+ 05/20/20 06:30 Ovalocytes 1+ 05/24/20 05:45 Yury Cells 1+ 05/24/20 05:45 Acanthocytes (Spur) 1+ 05/20/20 06:30 Sodium 141 mmol/L (136-145) 05/24/20 05:45 Potassium 6.0 mmol/L (3.5-5.1) H 05/24/20 05:45 Chloride 108 mmol/L (98-107) H 05/24/20 05:45 Carbon Dioxide 23 mmol/L (21-32) 05/24/20 05:45 Anion Gap 10 MMOL/L (8-16) 05/24/20 05:45 BUN 68.3 mg/dL (7-18) H 05/24/20 05:45 Creatinine 2.9 mg/dL (0.55-1.3) H 05/24/20 05:45 Est GFR (CKD-EPI)AfAm 23.45 05/24/20 05:45 Est GFR (CKD-EPI)NonAf 20.23 05/24/20 05:45 POC Glucometer 73 UNITS (80-120) 05/24/20 12:21 Random Glucose 162 mg/dL (74-106) H 05/24/20 05:45 Lactic Acid 2.0 mmol/L (0.4-2.0) 05/19/20 09:57 Calcium 8.0 mg/dL (8.5-10.1) L 05/24/20 05:45 Phosphorus 8.3 mg/dL (2.5-4.9) H 05/24/20 05:45 Magnesium 3.1 mg/dL (1.8-2.4) H 05/24/20 05:45 Ferritin 1022.5 ng/ml (8-388) H 05/20/20 06:30 Total Bilirubin 0.7 mg/dL (0.2-1) 05/24/20 05:45 AST 36 U/L (15-37) 05/24/20 05:45 ALT 25 U/L (13-61) 05/24/20 05:45 Alkaline Phosphatase 88 U/L (45-117) 05/24/20 05:45 LD Total 471 U/L (87-246) H 05/23/20 05:53 Creatine Kinase 68 U/L (26-308) 05/19/20 09:57 Troponin I < 0.02 ng/ml (0.00-0.05) 05/19/20 09:57 C-Reactive Protein 14.8 MG/DL (0.00-0.3) H 05/24/20 05:45 Total Protein 5.6 g/dl (6.4-8.2) L 05/24/20 05:45 Albumin 2.9 g/dl (3.4-5.0) L 05/24/20 05:45 Laboratory Tests 05/24/20 05/24/20 05:45 05:45 PT with INR 132.00 H INR 11.72 H* Fibrinogen 115.0 L crcl 28 influenza antigen negative a/p acute hypoxemic resp failure sepsis with DIC? 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
[2020-05-24] MEDS ORDERED: MEROPENEM 1 GM VIAL (RESTRICTED TO ID) IVPB ONE (13:51)
--- NOTE | 2020-05-24 14:09 | PN ---
Progress Note (short form) - Note Progress Note: Follow up note for Hematology Oncology Pt remains intubated, on vasopressor support and paralytic; now in acute renal failure. INR increased to 11.72 today. Suspect DIC given pt's fibrinogen level is 115. Can give cryoprecipitate; goal fibrinogen >200. Also, can give patient Vitamin K 2.5 mg IV. Check fibrinogen, PT/PTT, INR daily. Monitor for signs of bleeding; none currently noted. If bleeding episodes occur, may need to reverse coagulapathy more aggressively. Also, would not treat with IV leukopharesis/hydroxyurea given elevated WBC as it would not likely work in patients with CLL. Discussed plan w/ ICU team.
[2020-05-24 14:29] LABS: POTASSIUM 5.9 mmol/L (3.5-5.1)
[2020-05-24 14:30] LABS: CALCIUM 8.2 mg/dL (8.5-10.1)
[2020-05-24 14:31] LABS: BLOOD UREA NITROGEN 77.2 mg/dL (7-18)
[2020-05-24 14:34] LABS: CREATININE 3.9 mg/dL (0.55-1.3)
--- NOTE | 2020-05-24 15:35 | PN ---
Teaching Attending Note Name of Resident: Jerri Rodríguez ATTENDING PHYSICIAN STATEMENT I saw and evaluated the patient. I reviewed the resident's note and discussed the case with the resident. I agree with the resident's findings and plan as documented. 74M with CLL presents with SOB found to have covid PNA. Currently intubated/on pressors. Regarding his CLL; patient has been on and off one like of chemo and still had multiple lines of chemotherapy available. His performance status was excellent prior to hospitalization and he had been living with CLL for over a decade.There is concern he is going into DIC with his prolonged coags and low fibrinogen. Would give cryoprecipitate for fibrinogen less than 200. Agree with small dose vitamin K today given his INR elevation of >10. His WBC count has doubled today as well; most likely 2/2 bone marrow stress from acute illness. Unfortunately with mature lymphocytes cytoreduction with hydrea or leukaphresis has not proven to be beneficial the way it has been for acute leukemia and immature blasts. At this time, would recommend against cytoreduction and would continue with steroid management for his viral illness. Would also continue daily coags, LDH, fibrinogen and continue with supportive measures such as cryoprecipitate if fibrinogen continues to be <200, and Kcentra if vitamin K does not improve his elevated INR. Prognosis remains guarded at this time.
[2020-05-24] MEDS: VECURONIUM BROMIDE 100 MG/100 ML BAG IVPB SCH (15:55)
[2020-05-24] MEDS: MEROPENEM 1 GM in DEXTROSE 5%-WATER 100 ML IVPB SCH (15:55)
[2020-05-24] MEDS ORDERED: SODIUM BICARBONATE 8.4% 50 MEQ/50 ML VIAL IVPUSH ONE (16:03)
--- NOTE | 2020-05-24 16:03 | PROC ---
Central Line Insertion Indication: Other Risks and Benefits Explained: Yes Central Line: Dialysis Cath, Tri Lumen Anesthesia: 1% Lidocaine Sterile Technique: Yes Ultrasound Guided Assistance: Yes Position: Right Femoral Sterile Dressing Applied: Yes
--- NOTE | 2020-05-24 16:06 | PN ---
Progress Note (short form) - Note Progress Note: Case was discussed with [facility] transfer center. Patient was not accepted for transfer, per Dr. Coleman.
[2020-05-24] MEDS ORDERED: VASOPRESSIN 20 UNITS/ML VIAL IV ONE (16:17)
[2020-05-24 16:24] VITALS: BMI 29.8
[2020-05-24] MEDS: VASOPRESSIN 40 UNITS in SODIUM CHLORIDE 98 ML IVPB SCH (16:25)
[2020-05-24] MEDS ORDERED: SODIUM CHLORIDE 250 ML IV PRN ×2 (16:28→19:22)
[2020-05-24] MEDS: HYDROCORTISONE SOD SUCCINATE 100 MG/2 ML VIAL IVPUSH SCH ×2 (16:32→22:15)
--- NOTE | 2020-05-24 16:51 | CONSULT ---
Consult Consult Specialty:: Nephrology Reason for Consultation:: ROSALBA - History of Present Illness Chief Complaint: cough History of Present Illness: Pt is a 74 year old male with pmxh of htn, hld, a-fib, aortic stenosis, CLL, CVA who presents to the ER wtih cough. He had tested positive for covid and was started on azithromycin and steroids. He continued to have shortness of breath. He was admitted for treatment. He deteriorated and was intubated. He was found to be hypotensive as well. He remains in the ICU. I was called to evaluate him for HD. He has not made any urine since yesterday. He was also found to be acidotic. He is unable to give history. I spoke to his son and daughter for history as well as ICU team. - History Source History Provided By: Patient - Past Medical History [employer]OACH [employer]ER: Yes: CVA Cardio/Vascular: Yes: AFIB, Aortic Stenosis, HTN, Hyperlipdemia, Mitral Insufficiency Pulmonary: Yes: Cancer (colon cancer ) Gastrointestinal: Yes: Cancer (Colon cancer 19yrs ago) Endocrine: No: Diabetes Mellitus - Past Surgical History Past Surgical History: Yes: Colectomy (secondary colon cancer 19yrs ago), Hernia Repair Additional Surgical History: BIOAVR - Alcohol/Substance Use Hx Alcohol Use: No History of Substance Use: reports: None - Smoking History Smoking history: Never smoked Have you smoked in the past 12 months: No Aproximately how many cigarettes per day: 0 - Social History Usual Living Arrangement: With Spouse ADL: Independent History of Recent Travel: No Home Medications - Allergies Allergies/Adverse Reactions: Allergies Allergy/AdvReac Type Severity Reaction Status Date / Time No Known Allergies Allergy Verified 12/06/18 23:28 - Home Medications Home Medications: Ambulatory Orders Furosemide [Lasix -] 40 mg PO DAILY 11/14/14 Cyclophosphamide 50 mg PO DAILY 03/01/18 Warfarin Na [Coumadin -] 12 mg PO DAILY@1800 tablet 03/02/18 Meclizine HCl 12.5 mg PO PRN 12/07/18 Metoprolol Succinate 25 mg PO DAILY 12/07/18 Simvastatin 40 mg PO HS 12/07/18 Aspirin [ASA -] 81 mg PO DAILY #30 tab.chew 12/13/18 Family Medical History Family History: Unable to Obtain Review of Systems Unable to obtain ROS, reason: intubated Physical Exam Vital Signs: Vital Signs Temperature 100.9 F H 05/24/20 16:00 Pulse Rate 94 H 05/24/20 16:25 Respiratory Rate 30 H 05/24/20 16:00 Blood Pressure 103/54 L 05/24/20 16:25 O2 Sat by Pulse Oximetry (%) 100 05/24/20 16:00 Constitutional: Yes: Calm Eyes: Yes: Conjunctiva Clear HENT: Yes: Atraumatic Cardiovascular: Yes: S1, S2 Respiratory: Yes: Mechanically Ventilated Gastrointestinal: Yes: Soft Renal/: Yes: Anuria, Downing Present Musculoskeletal: Yes: Muscle Weakness Edema: No Neurological: Yes: Lethargy Labs: CBC, BMP 05/24/20 05:45 05/24/20 12:10 Imaging - Results Chest X-ray: Report Reviewed Problem List - Problems (1) ROSALBA (acute kidney injury) Code(s): N17.9 - ACUTE KIDNEY FAILURE, UNSPECIFIED (2) Acute hypoxemic respiratory failure Code(s): J96.01 - ACUTE RESPIRATORY FAILURE WITH HYPOXIA (3) COVID-19 with multiple comorbidities Code(s): U07.1 - COVID-19 (4) CLL (chronic lymphocytic leukemia) Code(s): C91.10 - CHRONIC LYMPHOCYTIC LEUK OF B-CELL TYPE NOT ACHIEVE REMIS Assessment/Plan Current Medications Generic Name Dose Route Start Last Admin Trade Name Freq PRN Reason Stop Dose Admin Albumin Human 12.5 gm 05/24/20 16:45 Albumin Human 25% IVPB Q30M ELIS Albuterol Sulfate 2 puff 05/22/20 09:31 Ventolin Hfa Inhaler - IH Q4H PRN SHORT OF BREATH/WHEEZING Dexamethasone Sodium Phosphate 6 mg 05/20/20 10:00 05/24/20 10:19 Decadron Injection - IVPUSH 6 mg DAILY ELIS Administration Hydrocortisone Sodium Succinate 50 mg 05/24/20 16:15 05/24/20 16:32 Solu-Cortef - IVPUSH 50 mg Q6H ELIS Administration Diltiazem HCl 125 mg/ Dextrose 125 mls @ 5 mls/hr 05/23/20 09:15 05/24/20 10:16 IVPB Not Given TITR ELIS Protocol 5 MG/HR Vecuronium [place] 100 mg in 100 mls @ 4.899 mls/hr 05/23/20 14:00 05/24/20 15:55 Vecuronium [place] IVPB Not Given TITR ELIS Protocol 1 MCG/KG/MIN Propofol 1,000,000 mcg in 100 mls @ 2.449 mls/hr 05/23/20 14:00 05/24/20 13:18 Diprivan - IVPB 20 mcg/kg/min TITR ELIS 9.798 mls/hr Administration Protocol 5 MCG/KG/MIN Norepinephrine Bitartrate 16, 500 mls @ 9.375 mls/hr 05/24/20 08:30 05/24/20 16:02 000 mcg/ Sodium Chloride IV 12 mcg/min TITR ELIS 22.5 mls/hr Titration Protocol 5 MCG/MIN Meropenem 1 gm/ Dextrose 100 mls @ 200 mls/hr 05/24/20 15:00 05/24/20 15:55 IVPB 200 mls/hr Q12H ELIS Administration Vasopressin 40 units/ Sodium 100 mls @ 5 mls/hr 05/24/20 16:15 05/24/20 16:26 Chloride IVPB 0 units/hr ASDIR ELIS 0 mls/hr Titration Protocol 2 UNITS/HR Sodium Chloride 250 mls @ 3,000 mls/hr 05/24/20 16:28 Normal Saline - IV 05/25/20 16:29 PRN PRN Hypotension during Dialysis Sodium Chloride 250 mls @ 3,000 mls/hr 05/24/20 16:34 Normal Saline - IV 05/25/20 16:34 PRN PRN Hypotension during Dialysis Metoprolol Tartrate 5 mg 05/20/20 12:22 Lopressor Injection - IVPUSH Q4H PRN TACHYCARDIA Pantoprazole Sodium 40 mg 05/19/20 14:15 05/24/20 10:19 Protonix Iv IVPUSH 40 mg DAILY ELIS Administration Sodium Bicarbonate 50 meq 05/24/20 13:00 05/24/20 13:17 Sodium Bicarbonate 8.4% - IVPUSH 50 meq Q6H ELIS Administration Impression 1. ROSALBA 2. hyperkalemia 3. covid 19 pna 4. acute resp failure 5. cll 6. a-fib 7. shock 8. hypotension 9. 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
[2020-05-24] MEDS ORDERED: PROPOFOL 1,000,000 MCG/100 ML VIAL IVPB SCH (19:15)
[2020-05-24] MEDS ORDERED: VECURONIUM BROMIDE 100 MG/100 ML BAG IVPB SCH (19:15)
[2020-05-24] MEDS: ALBUMIN HUMAN 25% 12.5 GM/50 ML VIAL IVPB SCH ×3 (20:04→20:39)
[2020-05-25] MEDS: SODIUM BICARBONATE 8.4% 50 MEQ/50 ML DISP.SYRIN IVPUSH SCH ×2 (01:00→06:26)
[2020-05-25] MEDS ORDERED: DEXTROSE 5%-WATER 100 ML IVPB ONE ×2 (02:06→14:30)
[2020-05-25] MEDS ORDERED: MEROPENEM 1 GM VIAL (RESTRICTED TO ID) IVPB ONE ×2 (02:06→14:30)
[2020-05-25] MEDS ORDERED: PT OWN MED DRAWER 7, Y5N ONE (02:07)
[2020-05-25] MEDS: MEROPENEM 1 GM in DEXTROSE 5%-WATER 100 ML IVPB SCH ×2 (02:45→14:31)
[2020-05-25] MEDS: HYDROCORTISONE SOD SUCCINATE 100 MG/2 ML VIAL IVPUSH SCH ×3 (04:15→16:19)
[2020-05-25 06:57] LABS: HEMOGLOBIN 10.8 GM/dL (11.7-16.9); MCHC 26.5 g/dl (32.0-35.9); MEAN CELL VOLUME 94.5 fl (80-96); MEAN PLT VOLUME 9.6 fl (7.5-11.1); PLATELET COUNT 99 K/MM3 (134-434); RBC 4.34 M/mm3 (4.00-5.60); RDW 18.8 % (11.9-15.9)
[2020-05-25 07:06] LABS: INR 2.91 (0.83-1.09); PROTHROMBIN TIME (PATIENT) 34.1 SEC (9.7-13.0)
[2020-05-25 07:08] LABS: ACTIVATED PTT 37.4 SECONDS (25.2-36.5)
[2020-05-25 07:34] LABS: ALBUMIN 2.6 g/dl (3.4-5.0); BLOOD UREA NITROGEN 81.2 mg/dL (7-18); CALCIUM 7.4 mg/dL (8.5-10.1)
[2020-05-25 07:35] LABS: MAGNESIUM 3.1 mg/dL (1.8-2.4)
[2020-05-25 07:38] LABS: CREATININE 5.1 mg/dL (0.55-1.3)
[2020-05-25 07:39] LABS: BILIRUBIN,TOTAL 1.3 mg/dL (0.2-1); TOT PROT 5.4 g/dl (6.4-8.2)
[2020-05-25 08:31] LABS: PHOSPHOROUS 11.3 mg/dL (2.5-4.9)
[2020-05-25 08:41] LABS: ADD RBC MORPHOLOGY YES
[2020-05-25] MEDS: NOREPINEPHRINE BITARTRATE 16,000 MCG in SODIUM CHLORIDE 484 ML IV SCH ×2 (08:56→18:34)
[2020-05-25] MEDS: DILTIAZEM INJECTION 125 MG in DEXTROSE 5%-WATER - 100 ML IVPB SCH (09:29)
[2020-05-25] MEDS: DEXAMETHASONE SOD PHOSPHATE 4 MG/1 ML VIAL IVPUSH SCH (09:35)
[2020-05-25] MEDS: PANTOPRAZOLE SODIUM 40 MG VIAL IVPUSH SCH (09:35)
[2020-05-25 09:54] LABS: ARTERIAL BLD GAS O2 SATURATION 90.8 mmHg (95-98); ARTERIAL BLOOD GAS BASE EXCESS -21.8 mmol/L (-2-2); ARTERIAL BLOOD GAS PO2 95.7 mmHg (80-100)
[2020-05-25 09:55] LABS: VENT MODE AC; VENT RATE 30
[2020-05-25 09:57] LABS: ARTERIAL BLOOD GAS pH 6.908 (7.350-7.450)
[2020-05-25] MEDS ORDERED: SODIUM CHLORIDE 250 ML IV PRN (10:35)
[2020-05-25] MEDS ORDERED: DEXTROSE 5%-WATER - 1,000 ML with SODIUM BICARBONATE 8.4% - 150 MEQ IV SCH (11:00)
[2020-05-25 11:22] LABS: SMUDGE CELLS PRESENT
[2020-05-25 11:30] LABS: OVALOCYTE 1+; PLATELET ESTIMATE DECREASED
[2020-05-25 11:31] LABS: ANISOCYTOSIS 1+
[2020-05-25] MEDS ORDERED: PHENYLEPHRINE NS PREMIX 25,000 MCG/250 ML BAG CVP SCH (12:00)
[2020-05-25] MEDS ORDERED: SODIUM BICARBONATE 8.4% 50 MEQ/50 ML DISP.SYRIN IVPUSH ONE (12:00)
--- NOTE | 2020-05-25 12:01 | PN ---
Physical Exam: SUBJECTIVE: Patient seen and examined at bedside. Overnight dialysis access was attained. This AM he is intubated and sedated, unable to participate in medical interview. OBJECTIVE: Vital Signs Period Temp Pulse Resp BP Sys/Estevez Pulse Ox Last 24 Hr 98.5 F-101 F 76-112 18-30 70-110/45-60 100-100 GENERAL: The patient is intubated and sedated. HEAD: NCAT EYES: LILLIAN, anicteric ENT: ETT size 8, in place at 22. vent AC 500/30/10/100% LUNGS: Diminished breath sounds, equal rise and fall of chest wall. HEART: Regular rate and rhythm, S1, S2 without murmur, rub or gallop. ABDOMEN: Soft, nontender, nondistended, normoactive bowel sounds SKIN: Warm, dry, normal turgor, no rashes or lesions noted Laboratory Results - last 24 hr 05/23/20 05/24/20 05/24/20 05:53 05:45 11:50 WBC RBC Hgb Hct MCV MCH MCHC RDW Plt Count MPV Absolute Neuts (auto) 25.2 H Total Counted Neutrophils % Neutrophils % (Manual) Band Neutrophils % Lymphocytes % Lymphocytes % (Manual) Monocytes % Monocytes % (Manual) Eosinophils % Eosinophils % (Manual) Basophils % Basophils % (Manual) Myelocytes % (Man) Promyelocytes % (Man) Blast Cells % (Manual) Nucleated RBC % Metamyelocytes Differential Comment Hypersegmented Neuts Plasma Cells Smudge Cells Other Cell Type Hypochromia Toxic Granulation Dohle Bodies [place] Rods Platelet Estimate Platelet Comment Polychromasia Poikilocytosis Basophilic Stippling Anisocytosis Microcytosis Macrocytosis Spherocytes Siderocytes Sickle Cells Target Cells Tear Drop Cells Ovalocytes Stomatocytes Helmet Cells Drew-[place]ord Bodies [place] Rings Yury Cells Acanthocytes (Spur) Rouleaux Fragmented RBCs Schistocytes Haptoglobin 292 PT with INR INR PTT (Actin FS) Fibrinogen Anticoagulation Therapy Puncture Site Patient Temperature ABG pH ABG pCO2 ABG pO2 ABG HCO3 ABG O2 Sat (Measured) ABG O2 Content ABG Base Excess Nathen Test Patient On Oxygen O2 Delivery Device Oxygen Flow Rate Vent Mode Vent Rate Mechanical Rate PEEP Pressure Support Vent Sodium 142 Potassium 5.9 H Chloride 106 Carbon Dioxide 19 L Anion Gap 16 BUN 77.2 H Creatinine 3.9 H Est GFR (CKD-EPI)AfAm 16.39 Est GFR (CKD-EPI)NonAf 14.14 POC Glucometer Random Glucose 264 H Calcium 8.2 L Phosphorus Magnesium Total Bilirubin AST ALT Alkaline Phosphatase LD Total C-Reactive Protein Total Protein Albumin Ur Random Creatinine Ur Random Sodium Ur Random Potassium Ur Random Chloride Random Vancomycin Blood Type Antibody Screen 05/24/20 05/24/20 05/24/20 12:10 12:21 12:45 WBC RBC Hgb Hct MCV MCH MCHC RDW Plt Count MPV Absolute Neuts (auto) Total Counted Neutrophils % Neutrophils % (Manual) Band Neutrophils % Lymphocytes % Lymphocytes % (Manual) Monocytes % Monocytes % (Manual) Eosinophils % Eosinophils % (Manual) Basophils % Basophils % (Manual) Myelocytes % (Man) Promyelocytes % (Man) Blast Cells % (Manual) Nucleated RBC % Metamyelocytes Differential Comment Hypersegmented Neuts Plasma Cells Smudge Cells Other Cell Type Hypochromia Toxic Granulation Dohle Bodies [place] Rods Platelet Estimate Platelet Comment Polychromasia Poikilocytosis Basophilic Stippling Anisocytosis Microcytosis Macrocytosis Spherocytes Siderocytes Sickle Cells Target Cells Tear Drop Cells Ovalocytes Stomatocytes Helmet Cells [place] Bodies [place] Rings Winnie Cells Acanthocytes (Spur) Rouleaux Fragmented RBCs Schistocytes Haptoglobin PT with INR INR PTT (Actin FS) Fibrinogen Anticoagulation Therapy No Result Required. Puncture Site No Result Required. Patient Temperature No Result Required. ABG pH 7.040 L* ABG pCO2 67.70 H ABG pO2 43.1 L ABG HCO3 17.9 L ABG O2 Sat (Measured) 57.5 L ABG O2 Content No Result Required. ABG Base Excess -13.4 L Nathen Test Positive Patient On Oxygen Yes O2 Delivery Device V Oxygen Flow Rate 100 Vent Mode Ac Vent Rate 30 Mechanical Rate V PEEP 10.0 Pressure Support Vent 500 Sodium Cancelled Potassium Cancelled Chloride Cancelled Carbon Dioxide Cancelled Anion Gap Cancelled BUN Cancelled Creatinine Cancelled Est GFR (CKD-EPI)AfAm Cancelled Est GFR (CKD-EPI)NonAf Cancelled POC Glucometer 73 Random Glucose Cancelled Calcium Cancelled Phosphorus Magnesium Total Bilirubin AST ALT Alkaline Phosphatase LD Total C-Reactive Protein Total Protein Albumin Ur Random Creatinine Ur Random Sodium Ur Random Potassium Ur Random Chloride Random Vancomycin Blood Type Antibody Screen 05/24/20 05/24/20 05/25/20 13:43 20:45 06:00 WBC RBC Hgb Hct MCV MCH MCHC RDW Plt Count MPV Absolute Neuts (auto) Total Counted Neutrophils % Neutrophils % (Manual) Band Neutrophils % Lymphocytes % Lymphocytes % (Manual) Monocytes % Monocytes % (Manual) Eosinophils % Eosinophils % (Manual) Basophils % Basophils % (Manual) Myelocytes % (Man) Promyelocytes % (Man) Blast Cells % (Manual) Nucleated RBC % Metamyelocytes Differential Comment Hypersegmented Neuts Plasma Cells Smudge Cells Other Cell Type Hypochromia Toxic Granulation Dohle Bodies [place] Rods Platelet Estimate Platelet Comment Polychromasia Poikilocytosis Basophilic Stippling Anisocytosis Microcytosis Macrocytosis Spherocytes Siderocytes Sickle Cells Target Cells Tear Drop Cells Ovalocytes Stomatocytes Helmet Cells Drew-[place] Bodies [place] Rings Winnie Cells Acanthocytes (Spur) Rouleaux Fragmented RBCs Schistocytes Haptoglobin PT with INR INR PTT (Actin FS) Fibrinogen Anticoagulation Therapy Puncture Site Patient Temperature ABG pH ABG pCO2 ABG pO2 ABG HCO3 ABG O2 Sat (Measured) ABG O2 Content ABG Base Excess Nathen Test Patient On Oxygen O2 Delivery Device Oxygen Flow Rate Vent Mode Vent Rate Mechanical Rate PEEP Pressure Support Vent Sodium Potassium Chloride Carbon Dioxide Anion Gap BUN Creatinine Est GFR (CKD-EPI)AfAm Est GFR (CKD-EPI)NonAf POC Glucometer Random Glucose Calcium Phosphorus Magnesium Total Bilirubin AST ALT Alkaline Phosphatase LD Total C-Reactive Protein Total Protein Albumin Ur Random Creatinine 146.0 Ur Random Sodium 23 L Ur Random Potassium 70.0 Ur Random Chloride < 11 L Random Vancomycin < 0.8 L Blood Type A POSITIVE Antibody Screen Negative 05/25/20 05/25/20 05/25/20 06:00 06:00 06:00 WBC RBC Hgb Hct MCV MCH MCHC RDW Plt Count MPV Absolute Neuts (auto) Total Counted Neutrophils % Neutrophils % (Manual) Band Neutrophils % Lymphocytes % Lymphocytes % (Manual) Monocytes % Monocytes % (Manual) Eosinophils % Eosinophils % (Manual) Basophils % Basophils % (Manual) Myelocytes % (Man) Promyelocytes % (Man) Blast Cells % (Manual) Nucleated RBC % Metamyelocytes Differential Comment Hypersegmented Neuts Plasma Cells Smudge Cells Other Cell Type Hypochromia Toxic Granulation Dohle Bodies [place] Rods Platelet Estimate Platelet Comment Polychromasia Poikilocytosis Basophilic Stippling Anisocytosis Microcytosis Macrocytosis Spherocytes Siderocytes Sickle Cells Target Cells Tear Drop Cells Ovalocytes Stomatocytes Helmet Cells Drew-[place] Bodies [place] Rings Winnie Cells Acanthocytes (Spur) Rouleaux Fragmented RBCs Schistocytes Haptoglobin PT with INR 34.10 H INR 2.91 H PTT (Actin FS) 37.4 H Fibrinogen 236.0 L Anticoagulation Therapy Puncture Site Patient Temperature ABG pH ABG pCO2 ABG pO2 ABG HCO3 ABG O2 Sat (Measured) ABG O2 Content ABG Base Excess Nathen Test Patient On Oxygen O2 Delivery Device Oxygen Flow Rate Vent Mode Vent Rate Mechanical Rate PEEP Pressure Support Vent Sodium 140 Potassium 6.0 H Chloride 101 Carbon Dioxide 24 Anion Gap 16 BUN 81.2 H Creatinine 5.1 H Est GFR (CKD-EPI)AfAm 11.85 Est GFR (CKD-EPI)NonAf 10.22 POC Glucometer Random Glucose 166 H Calcium 7.4 L Phosphorus 11.3 H* Magnesium 3.1 H Total Bilirubin 1.3 H AST 741 H ALT 684 H Alkaline Phosphatase 88 LD Total 796 H C-Reactive Protein 12.7 H Total Protein 5.4 L Albumin 2.6 L Ur Random Creatinine Ur Random Sodium Ur Random Potassium Ur Random Chloride Random Vancomycin Blood Type Antibody Screen 05/25/20 05/25/20 05/25/20 06:00 06:00 09:10 WBC 556.0 H* RBC 4.34 Hgb 10.8 L Hct 41.0 MCV 94.5 MCH 25.0 L MCHC 26.5 L RDW 18.8 H Plt Count 99 L MPV 9.6 Absolute Neuts (auto) 16.7 H Total Counted 100 Cancelled Neutrophils % Store Team Member Neutrophils % (Manual) 3.0 L Cancelled Band Neutrophils % Cancelled Lymphocytes % Store Team Member Lymphocytes % (Manual) 97.0 H* Cancelled Monocytes % Store Team Member Monocytes % (Manual) Cancelled Eosinophils % Store Team Member Eosinophils % (Manual) Cancelled Basophils % Store Team Member Basophils % (Manual) Cancelled Myelocytes % (Man) Cancelled Promyelocytes % (Man) Cancelled Blast Cells % (Manual) Cancelled Nucleated RBC % 0 Cancelled Metamyelocytes Cancelled Differential Comment Cancelled Hypersegmented Neuts Cancelled Plasma Cells Cancelled Smudge Cells Present Cancelled Other Cell Type Cancelled Hypochromia Cancelled Toxic Granulation Cancelled Dohle Bodies Cancelled [place] Rods Cancelled Platelet Estimate Decreased Cancelled Platelet Comment Cancelled Polychromasia Cancelled Poikilocytosis Cancelled Basophilic Stippling Cancelled Anisocytosis 1+ Cancelled Microcytosis Cancelled Macrocytosis Cancelled Spherocytes Cancelled Siderocytes Cancelled Sickle Cells Cancelled Target Cells Cancelled Tear Drop Cells Cancelled Ovalocytes 1+ Cancelled Stomatocytes Cancelled Helmet Cells Cancelled [place] Bodies Cancelled [place] Rings Cancelled Winnie Cells 1+ Cancelled Acanthocytes (Spur) Cancelled Rouleaux Cancelled Fragmented RBCs Cancelled Schistocytes Cancelled Haptoglobin PT with INR INR PTT (Actin FS) Fibrinogen Anticoagulation Therapy No Result Required. Puncture Site Arterial line Patient Temperature No Result Required. ABG pH 6.908 L* ABG pCO2 56.90 H ABG pO2 95.7 ABG HCO3 11.1 L ABG O2 Sat (Measured) 90.8 L ABG O2 Content No Result Required. ABG Base Excess -21.8 L Nathen Test No Result Required. Patient On Oxygen Yes O2 Delivery Device V Oxygen Flow Rate 100 Vent Mode Ac Vent Rate 30 Mechanical Rate V PEEP 10.0 Pressure Support Vent 500 Sodium Potassium Chloride Carbon Dioxide Anion Gap BUN Creatinine Est GFR (CKD-EPI)AfAm Est GFR (CKD-EPI)NonAf POC Glucometer Random Glucose Calcium Phosphorus Magnesium Total Bilirubin AST ALT Alkaline Phosphatase LD Total C-Reactive Protein Total Protein Albumin Ur Random Creatinine Ur Random Sodium Ur Random Potassium Ur Random Chloride Random Vancomycin Blood Type Antibody Screen Active Medications Generic Name Dose Route Start Last Admin Trade Name Freq PRN Reason Stop Dose Admin Albuterol Sulfate 2 puff 05/22/20 09:31 Ventolin Hfa Inhaler - IH Q4H PRN SHORT OF BREATH/WHEEZING Dexamethasone Sodium Phosphate 6 mg 05/20/20 10:00 05/25/20 09:35 Decadron Injection - IVPUSH 6 mg DAILY ELIS Administration Hydrocortisone Sodium Succinate 50 mg 05/24/20 16:15 05/25/20 09:38 Solu-Cortef - IVPUSH 50 mg Q6H ELIS Administration Diltiazem HCl 125 mg/ Dextrose 125 mls @ 5 mls/hr 05/23/20 09:15 05/25/20 09: 29 IVPB Not Given TITR ELIS Protocol 5 MG/HR Norepinephrine Bitartrate 16, 500 mls @ 9.375 mls/hr 05/24/20 08:30 05/25/20 08:56 000 mcg/ Sodium Chloride IV 30 mcg/min TITR ELIS 56.25 mls/hr Administration Protocol 5 MCG/MIN Meropenem 1 gm/ Dextrose 100 mls @ 200 mls/hr 05/24/20 15:00 05/25/20 02:45 IVPB 200 mls/hr Q12H ELIS Administration Vasopressin 40 units/ Sodium 100 mls @ 5 mls/hr 05/24/20 16:15 05/25/20 07:00 Chloride IVPB 6 units/hr ASDIR ELIS 15 mls/hr Titration Protocol 2 UNITS/HR Propofol 1,000,000 mcg in 100 mls @ 2.76 mls/hr 05/24/20 19:15 Diprivan - IVPB TITR ELIS Protocol 5 MCG/KG/MIN Vecuronium [place] 100 mg in 100 mls @ 5.52 mls/hr 05/24/20 19:15 Vecuronium [place] IVPB TITR ELIS 1 MCG/KG/MIN Sodium Chloride 250 mls @ 3,000 mls/hr 05/25/20 10:35 Normal Saline - IV 05/26/20 10:35 PRN PRN Hypotension during Dialysis Sodium Bicarbonate 150 meq/ 1,150 mls @ 70 mls/hr 05/25/20 11:00 Dextrose IV Q16H ELIS Phenylephrine HCl 25,000 mcg in 250 mls @ 60 mls/hr 05/25/20 12:00 Chad-Synephrine CVP TITR ELIS Protocol 100 MCG/MIN Metoprolol Tartrate 5 mg 05/20/20 12:22 Lopressor Injection - IVPUSH Q4H PRN TACHYCARDIA Pantoprazole Sodium 40 mg 05/19/20 14:15 05/25/20 09:35 Protonix Iv IVPUSH 40 mg DAILY ELIS Administration ASSESSMENT/PLAN: 74 y/o male PMH HTN, hyperlipidemia, atrial fibrillation (on warfarin), aortic stenosis s/p bioAVR, h/o CVA, CLL (not on meds for last 2 months per his [facility] oncologist), admitted to the ICU for acute hypoxic respiratory failure 2/2 Covid-19. # NEURO - Intubated and sedated # PULM/ID - Intubated and sedated - Decadron 6mg IV daily - s/p Remdesivir and convalescent plasma - Meropenem 1gm BID - Nebulized Albuterol 2 puffs Q4H IH PRN # CVS - Atrial Fibrillation - Diltiazem Drip - Lopressor 5mg IV Q4 PRN # GI - No evidence of GI bleed - BUN/Cr ratio less than 20 - Transaminitis # Renal - Renal failure/anuria - Cr 5.1 from 3.9 - HD today # Heme/onc - Will reach out to discuss utility of cryo # DVT PPx - INR 11.72 with plan to start Eliquis if the INR < 3.0 # FEN - Avoiding IV fluids due to risk of COVID induced pulmonary capillary leak - Replete K/Phos/Mg at # TLD - Intubated 05/23/2020 - Right IJ central line 05/23/2020 - Right Axillary A-Line 05/23/2020 - Right Femoral central line 05/24/2020 Visit type - Emergency Visit Emergency Visit: No - New Patient This patient is new to me today: No - Critical Care Critical Care patient: Yes Total Critical Care Time (in minutes): 35 Critical Care Statement: The care of this patient involved high complexity d ecision making to prevent further life threatening deterioration of the patient's condition and/or to evaluate & treat vital organ system(s) failure or risk of failure. - Medication Review Med list reviewed for High Risk Meds patients 65 and older: Yes ATTENDING PHYSICIAN STATEMENT I saw and evaluated the patient. I reviewed the resident's note and discussed the case with the resident. I agree with the resident's findings and plan as documented. SUBJECTIVE: OBJECTIVE: ASSESSMENT AND PLAN:
[2020-05-25] MEDS ORDERED: PHENYLEPHRINE HCL 10 MG/1 ML SINGLE DOSE VIAL ONE ×3 (12:13→18:24)
[2020-05-25] MEDS ORDERED: SODIUM BICARBONATE 8.4% - 150 MEQ in DEXTROSE 5%-WATER - 1,000 ML IV SCH (12:14)
--- NOTE | 2020-05-25 12:22 | PN ---
Progress Note (short form) - Note Progress Note: cc: dyspnea s: unable to obtain hpi, ros due to intubated, sedated, paralyzed. on levophed and vasopressin, dialyzed yesterday Current Medications Generic Name Dose Route Start Last Admin Trade Name Freq PRN Reason Stop Dose Admin Albuterol Sulfate 2 puff 05/22/20 09:31 Ventolin Hfa Inhaler - IH Q4H PRN SHORT OF BREATH/WHEEZING Dexamethasone Sodium Phosphate 6 mg 05/20/20 10:00 05/25/20 09:35 Decadron Injection - IVPUSH 6 mg DAILY ELIS Administration Hydrocortisone Sodium Succinate 50 mg 05/24/20 16:15 05/25/20 09:38 Solu-Cortef - IVPUSH 50 mg Q6H ELIS Administration Diltiazem HCl 125 mg/ Dextrose 125 mls @ 5 mls/hr 05/23/20 09:15 05/25/20 09:29 IVPB Not Given TITR ELIS Protocol 5 MG/HR Norepinephrine Bitartrate 16, 500 mls @ 9.375 mls/hr 05/24/20 08:30 05/25/20 08:56 000 mcg/ Sodium Chloride IV 30 mcg/min TITR ELIS 56.25 mls/hr Administration Protocol 5 MCG/MIN Meropenem 1 gm/ Dextrose 100 mls @ 200 mls/hr 05/24/20 15:00 05/25/20 02:45 IVPB 200 mls/hr Q12H ELIS Administration Vasopressin 40 units/ Sodium 100 mls @ 5 mls/hr 05/24/20 16:15 05/25/20 07:00 Chloride IVPB 6 units/hr ASDIR ELIS 15 mls/hr Titration Protocol 2 UNITS/HR Propofol 1,000,000 mcg in 100 mls @ 2.76 mls/hr 05/24/20 19:15 Diprivan - IVPB TITR ELIS Protocol 5 MCG/KG/MIN Vecuronium [place] 100 mg in 100 mls @ 5.52 mls/hr 05/24/20 19:15 Vecuronium [place] IVPB TITR ELIS 1 MCG/KG/MIN Sodium Chloride 250 mls @ 3,000 mls/hr 05/25/20 10:35 Normal Saline - IV 05/26/20 10:35 PRN PRN Hypotension during Dialysis Phenylephrine HCl 25,000 mcg in 250 mls @ 60 mls/hr 05/25/20 12:00 Chad-Synephrine CVP TITR ELIS Protocol 100 MCG/MIN Sodium Bicarbonate 150 meq/ 1,150 mls @ 70 mls/hr 05/25/20 12:14 Dextrose IV Q16H [facility] Metoprolol Tartrate 5 mg 05/20/20 12:22 Lopressor Injection - IVPUSH Q4H PRN TACHYCARDIA Pantoprazole Sodium 40 mg 05/19/20 14:15 05/25/20 09:35 Protonix Iv IVPUSH 40 mg DAILY ELIS Administration Vital Signs Period Temp Pulse Resp BP Sys/Estevez Pulse Ox Last 24 Hr 98.5 F-101 F 76-112 18-30 70-110/45-60 100-100 HENT: Yes: Other (+ ETT) Cardiovascular: Yes: Pulse Irregular Respiratory: Yes: Other (= breath sounds) Gastrointestinal: Yes: Soft Edema: No Peripheral Pulses WNL: Yes Wound/Incision: Yes: Other (intubated, sedated on paralytics) Psychiatric: Yes: Other (cannot be assessed) Laboratory Last Values WBC 556.0 K/mm3 (4.0-10.0) H* 05/25/20 06:00 RBC 4.34 M/mm3 (4.00-5.60) 05/25/20 06:00 Hgb 10.8 GM/dL (11.7-16.9) L 05/25/20 06:00 Hct 41.0 % (35.4-49) 05/25/20 06:00 MCV 94.5 fl (80-96) 05/25/20 06:00 MCH 25.0 pg (25.7-33.7) L 05/25/20 06:00 MCHC 26.5 g/dl (32.0-35.9) L 05/25/20 06:00 RDW 18.8 % (11.9-15.9) H 05/25/20 06:00 Plt Count 99 K/MM3 (134-434) L 05/25/20 06:00 MPV 9.6 fl (7.5-11.1) 05/25/20 06:00 Absolute Neuts (auto) 16.7 K/mm3 (1.5-8.0) H 05/25/20 06:00 Total Counted 100 05/25/20 06:00 Total Counted Cancelled 05/25/20 06:00 Neutrophils % J2Ee Consultant 05/25/20 06:00 Neutrophils % (Manual) 3.0 % (42.8-82.8) L 05/25/20 06:00 Neutrophils % (Manual) Cancelled 05/25/20 06:00 Band Neutrophils % Cancelled 05/25/20 06:00 Lymphocytes % J2Ee Consultant 05/25/20 06:00 Lymphocytes % (Manual) 97.0 % (8-40) H* 05/25/20 06:00 Lymphocytes % (Manual) Cancelled 05/25/20 06:00 Monocytes % J2Ee Consultant 05/25/20 06:00 Monocytes % (Manual) Cancelled 05/25/20 06:00 Eosinophils % J2Ee Consultant 05/25/20 06:00 Eosinophils % (Manual) Cancelled 05/25/20 06:00 Basophils % J2Ee Consultant 05/25/20 06:00 Basophils % (Manual) Cancelled 05/25/20 06:00 Myelocytes % (Man) Cancelled 05/25/20 06:00 Promyelocytes % (Man) Cancelled 05/25/20 06:00 Blast Cells % (Manual) Cancelled 05/25/20 06:00 Nucleated RBC % 0 % (0-0) 05/25/20 06:00 Nucleated RBC % Cancelled 05/25/20 06:00 Metamyelocytes Cancelled 05/25/20 06:00 Differential Comment Cancelled 05/25/20 06:00 Hypersegmented Neuts Cancelled 05/25/20 06:00 Plasma Cells Cancelled 05/25/20 06:00 Smudge Cells Cancelled 05/25/20 06:00 Smudge Cells Present 05/25/20 06:00 Other Cell Type Cancelled 05/25/20 06:00 Hypochromia Cancelled 05/25/20 06:00 Toxic Granulation Cancelled 05/25/20 06:00 Dohle Bodies Cancelled 05/25/20 06:00 [place] Rods Cancelled 05/25/20 06:00 Platelet Estimate Cancelled 05/25/20 06:00 Platelet Estimate Decreased 05/25/20 06:00 Platelet Comment Cancelled 05/25/20 06:00 Platelet Comment Cancelled 05/25/20 06:00 Polychromasia Cancelled 05/25/20 06:00 Poikilocytosis Cancelled 05/25/20 06:00 Basophilic Stippling Cancelled 05/25/20 06:00 Anisocytosis 1+ 05/25/20 06:00 Anisocytosis Cancelled 05/25/20 06:00 Microcytosis Cancelled 05/25/20 06:00 Macrocytosis Cancelled 05/25/20 06:00 Spherocytes Cancelled 05/25/20 06:00 Siderocytes Cancelled 05/25/20 06:00 Sickle Cells Cancelled 05/25/20 06:00 Target Cells Cancelled 05/25/20 06:00 Tear Drop Cells Cancelled 05/25/20 06:00 Ovalocytes 1+ 05/25/20 06:00 Ovalocytes Cancelled 05/25/20 06:00 Stomatocytes Cancelled 05/25/20 06:00 Helmet Cells Cancelled 05/25/20 06:00 [place] Bodies Cancelled 05/25/20 06:00 [place] Rings Cancelled 05/25/20 06:00 [place] Cells 1+ 05/25/20 06:00 [place] Cells Cancelled 05/25/20 06:00 Acanthocytes (Spur) Cancelled 05/25/20 06:00 Rouleaux Cancelled 05/25/20 06:00 Fragmented RBCs Cancelled 05/25/20 06:00 Schistocytes Cancelled 05/25/20 06:00 Haptoglobin 292 mg/dL (34-355) 05/23/20 05:53 PT with INR 34.10 SEC (9.7-13.0) H 05/25/20 06:00 INR 2.91 (0.83-1.09) H 05/25/20 06:00 PTT (Actin FS) 37.4 SECONDS (25.2-36.5) H 05/25/20 06:00 Fibrinogen 236.0 mg/dL (238-498) L 05/25/20 06:00 D-Dimer 1073 ng/ml (0-500) H 05/21/20 05:55 Anticoagulation Therapy No Result Required. 05/25/20 09:10 Puncture Site Arterial line 05/25/20 09:10 Patient Temperature No Result Required. 05/25/20 09:10 ABG pH 6.908 (7.350-7.450) L* 05/25/20 09:10 ABG pCO2 56.90 mmHg (35-45) H 05/25/20 09:10 ABG pO2 95.7 mmHg (80-100) 05/25/20 09:10 ABG HCO3 11.1 mmol/L (22-27) L 05/25/20 09:10 ABG O2 Sat (Measured) 90.8 mmHg (95-98) L 05/25/20 09:10 ABG O2 Content No Result Required. 05/25/20 09:10 ABG Base Excess -21.8 mmol/L (-2-2) L 05/25/20 09:10 Nathen Test No Result Required. 05/25/20 09:10 VBG pH 7.399 (7.310-7.410) 05/19/20 09:31 POC VBG pCO2 33.1 mmHg (38-52) L 05/19/20 09:31 POC VBG pO2 22.5 mmHg (28-48) L 05/19/20 09:31 VBG HCO3 20.0 mmol/L (23-29) L 05/19/20 09:31 VBG O2 Sat (Manjula) 39.5 % (70-80) L 05/19/20 09:31 VBG Base Excess -4.0 mmol/L (-2-2) L 05/19/20 09:31 Patient On Oxygen Yes 05/25/20 09:10 O2 Delivery Device V 05/25/20 09:10 Oxygen Flow Rate 100 05/25/20 09:10 Vent Mode Ac 05/25/20 09:10 Vent Rate 30 05/25/20 09:10 Mechanical Rate V 05/25/20 09:10 PEEP 10.0 cmH2O 05/25/20 09:10 Pressure Support Vent 500 05/25/20 09:10 Sodium 140 mmol/L (136-145) 05/25/20 06:00 Potassium 6.0 mmol/L (3.5-5.1) H 05/25/20 06:00 Chloride 101 mmol/L (98-107) 05/25/20 06:00 Carbon Dioxide 24 mmol/L (21-32) 05/25/20 06:00 Anion Gap 16 MMOL/L (8-16) 05/25/20 06:00 BUN 81.2 mg/dL (7-18) H 05/25/20 06:00 Creatinine 5.1 mg/dL (0.55-1.3) H 05/25/20 06:00 Est GFR (CKD-EPI)AfAm 11.85 05/25/20 06:00 Est GFR (CKD-EPI)NonAf 10.22 05/25/20 06:00 POC Glucometer 73 UNITS (80-120) 05/24/20 12:21 Random Glucose 166 mg/dL (74-106) H 05/25/20 06:00 Lactic Acid 2.0 mmol/L (0.4-2.0) 05/19/20 09:57 Calcium 7.4 mg/dL (8.5-10.1) L 05/25/20 06:00 Phosphorus 11.3 mg/dL (2.5-4.9) H* 05/25/20 06:00 Magnesium 3.1 mg/dL (1.8-2.4) H 05/25/20 06:00 Ferritin 1022.5 ng/ml (8-388) H 05/20/20 06:30 Total Bilirubin 1.3 mg/dL (0.2-1) H 05/25/20 06:00 AST 741 U/L (15-37) H 05/25/20 06:00 ALT 684 U/L (13-61) H 05/25/20 06:00 Alkaline Phosphatase 88 U/L (45-117) 05/25/20 06:00 LD Total 796 U/L (87-246) H 05/25/20 06:00 Creatine Kinase 68 U/L (26-308) 05/19/20 09:57 Troponin I < 0.02 ng/ml (0.00-0.05) 05/19/20 09:57 C-Reactive Protein 12.7 MG/DL (0.00-0.3) H 05/25/20 06:00 Total Protein 5.4 g/dl (6.4-8.2) L 05/25/20 06:00 Albumin 2.6 g/dl (3.4-5.0) L 05/25/20 06:00 Urine Color Yellow 05/19/20 09:37 Urine Appearance Clear 05/19/20 09:37 Urine pH 5.0 (5.0-8.0) 05/19/20 09:37 Ur Specific [place] 1.027 (1.010-1.035) 05/19/20 09:37 Urine Protein 3+ (NEGATIVE) H 05/19/20 09:37 Urine Glucose (UA) Negative (NEGATIVE) 05/19/20 09:37 Urine Ketones Negative (NEGATIVE) 05/19/20 09:37 Urine Blood Trace (NEGATIVE) 05/19/20 09:37 Urine Nitrite Negative (NEGATIVE) 05/19/20 09:37 Urine Bilirubin Negative (NEGATIVE) 05/19/20 09:37 Urine Urobilinogen 1.0 mg/dL (0.2-1.0) 05/19/20 09:37 Ur Leukocyte Esterase Negative (NEGATIVE) 05/19/20 09:37 Urine WBC (Auto) 9 /uL (0-25.8) 05/19/20 09:37 Urine RBC (Auto) 8 /uL (0-23.9) 05/19/20 09:37 Urine Casts (Auto) 3 /uL (0-3.1) 05/19/20 09:37 U Epithel Cells (Auto) 13 /uL (0-25.1) 05/19/20 09:37 Urine Bacteria (Auto) 2 /uL (0-1359) 05/19/20 09:37 Ur Random Creatinine 146.0 mg/dL (30-150) 05/24/20 13:43 Ur Random Sodium 23 MMOL/L (40-220) L 05/24/20 13:43 Ur Random Potassium 70.0 MMOL/L (25-125) 05/24/20 13:43 Ur Random Chloride < 11 MMOL/L (110-250) L 05/24/20 13:43 Random Vancomycin < 0.8 ug/ml (5-26) L 05/25/20 06:00 COVID-19 (DAWIT) Detected (Not Detected) H 05/19/20 09:37 Influenza A (Rapid) Negative (Negative) 05/19/20 14:45 Influenza B (Rapid) Negative (Negative) 05/19/20 14:45 Blood Type A POSITIVE 05/24/20 20:45 Antibody Screen Negative 05/24/20 20:45 - ....Imaging Chest X-ray: Report Reviewed (slight improvement), Image Reviewed EKG: Image Reviewed tele: afib, rate ok Assessment/Plan echo 11/2018: nl lv/rv, maritza, mod-sev mr/tr, avr wnl, rvsp 30-40; on review by Dr Olivera and Hamida, MR and TR do not appear severe a/p: 74M h/o CHF, CLL, CVA, s/p bioAVR, afib p/w sob and COVID PNA now with acute respiratory failure requiring intubation and acute renal failure, acidemia covid PNA, acute hypoxic respiratory failure, septic shock -no signs chf, acs -Intubated for acute hypoxic respiratory failure, sedated and paralyzed - on escalating levophed and vasopressin gtt to maintain MAP >65 mmHg -cont abx per ID. ecg with rbbb so qtc not as reliable but manually calculated appears normal, monitor on tele. -Also receiving steroids as per critical care team s/p bioAVR - nl fcn on recent echo - cont ac per inr afib: now controlled - rvr here likely due to infection, resp distress - controlled on dilt gtt, now dc'ed - cont coumadin per inr chronic diastolic HF: - euvolemic presently - sob sec to PNA acute renal failure: in setting sepsis/ hypotension, likely ATN -Renal consulted, dialysis per renal estimated critical care time = 35 min
--- NOTE | 2020-05-25 12:26 | PN ---
Teaching Attending Note Name of Resident: Jon Winters ATTENDING PHYSICIAN STATEMENT I saw and evaluated the patient. I reviewed the resident's note and discussed the case with the resident. I agree with the resident's findings and plan as documented. SUBJECTIVE: Patient seen and examined in the ICU. Intubated and sedated. AC Mode of vent: LTTV Ppeak: 32. PPalt: 31 Severe Acidosis : combined Respiratory and Metabolic. PaO2: 94 Receiving Bicarbonate pushes. WBC continues to rise. Increased pressor requirements. Intake & Output 05/22/20 05/23/20 05/24/20 05/25/20 23:59 23:59 23:59 23:59 Intake Total 862 747.6 808 799.8 Output Total 1150 996 20 Balance -288 747.6 -188 779.8 Weight 180 lb 202 lb 13.204 oz 203 lb 0.732 oz Last Vital Signs Temp Pulse Resp BP Pulse Ox 99.0 F 76 30 H 97/49 L 100 05/25/20 06:00 05/25/20 08:56 05/25/20 09:20 05/25/20 08:56 05/25/20 09:20 Active Medications Albuterol Sulfate (Ventolin Hfa Inhaler -) 2 puff IH Q4H PRN PRN Reason: SHORT OF BREATH/WHEEZING Dexamethasone Sodium Phosphate (Decadron Injection -) 6 mg IVPUSH DAILY [facility] Last Admin: 05/25/20 09:35 Dose: 6 mg Documented by: Hydrocortisone Sodium Succinate (Solu-Cortef -) 50 mg IVPUSH Q6H [facility] Last Admin: 05/25/20 09:38 Dose: 50 mg Documented by: Diltiazem HCl 125 mg/ Dextrose 125 mls @ 5 mls/hr IVPB TITR [facility]; Protocol Last Admin: 05/25/20 09:29 Dose: Not Given Documented by: Norepinephrine Bitartrate 16, (000 mcg/ Sodium Chloride) 500 mls @ 9.375 mls/hr IV TITR [facility]; Protocol Last Admin: 05/25/20 08:56 Dose: 30 mcg/min, 56.25 mls/hr Documented by: Meropenem 1 gm/ Dextrose 100 mls @ 200 mls/hr IVPB Q12H [facility] Last Admin: 05/25/20 02:45 Dose: 200 mls/hr Documented by: Vasopressin 40 units/ Sodium (Chloride) 100 mls @ 5 mls/hr IVPB ASDIR [facility]; Protocol Last Titration: 05/25/20 07:00 Dose: 6 units/hr, 15 mls/hr Documented by: Propofol (Diprivan -) 1,000,000 mcg in 100 mls @ 2.76 mls/hr IVPB TITR [facility]; Protocol Vecuronium [place] (Vecuronium [place]) 100 mg in 100 mls @ 5.52 mls/hr IVPB TITR [facility] Sodium Chloride (Normal Saline -) 250 mls @ 3,000 mls/hr IV PRN PRN PRN Reason: Hypotension during Dialysis Stop: 05/26/20 10:35 Phenylephrine HCl (Chad-Synephrine) 25,000 mcg in 250 mls @ 60 mls/hr CVP TITR [facility]; Protocol Sodium Bicarbonate 150 meq/ (Dextrose) 1,150 mls @ 70 mls/hr IV Q16H [facility] Metoprolol Tartrate (Lopressor Injection -) 5 mg IVPUSH Q4H PRN PRN Reason: TACHYCARDIA Pantoprazole Sodium (Protonix Iv) 40 mg IVPUSH DAILY [facility] [place] Last Admin: 05/25/20 09:35 Dose: 40 mg Documented by: Constitutional: Yes: Intubated and sedated Eyes: Yes: WNL, Conjunctiva Clear, EOM Intact HENT: Yes: WNL, Atraumatic, Normocephalic Neck: Yes: WNL, Supple, Trachea Midline Cardiovascular: Yes: WNL, Tachycardia, Pulse Irregular, S1, S2 Respiratory: Yes: Intubated, bilateral coarse rhonchi Gastrointestinal: Yes: WNL, Normal Bowel Sounds, Soft ...Rectal Exam: Yes: Deferred Renal/: Yes: WNL Breast(s): Yes: WNL Musculoskeletal: Yes: Muscle Weakness Extremities: Yes: WNL Edema: No Peripheral Pulses WNL: Yes Integumentary: Yes: WNL ...Motor Strength: WNL Psychiatric: Yes: WNL Labs: Laboratory Results - last 24 hr 05/23/20 05/24/20 05/24/20 05:53 11:50 12:10 WBC RBC Hgb Hct MCV MCH MCHC RDW Plt Count MPV Absolute Neuts (auto) Total Counted Neutrophils % Neutrophils % (Manual) Band Neutrophils % Lymphocytes % Lymphocytes % (Manual) Monocytes % Monocytes % (Manual) Eosinophils % Eosinophils % (Manual) Basophils % Basophils % (Manual) Myelocytes % (Man) Promyelocytes % (Man) Blast Cells % (Manual) Nucleated RBC % Metamyelocytes Differential Comment Hypersegmented Neuts Plasma Cells Smudge Cells Other Cell Type Hypochromia Toxic Granulation Dohle Bodies [place] Rods Platelet Estimate Platelet Comment Polychromasia Poikilocytosis Basophilic Stippling Anisocytosis Microcytosis Macrocytosis Spherocytes Siderocytes Sickle Cells Target Cells Tear Drop Cells Ovalocytes Stomatocytes Helmet Cells [place] Bodies Emma Rings Yury Cells Acanthocytes (Spur) Rouleaux Fragmented RBCs Schistocytes Haptoglobin 292 PT with INR INR PTT (Actin FS) Fibrinogen Anticoagulation Therapy Puncture Site Patient Temperature ABG pH ABG pCO2 ABG pO2 ABG HCO3 ABG O2 Sat (Measured) ABG O2 Content ABG Base Excess Nathen Test Patient On Oxygen O2 Delivery Device Oxygen Flow Rate Vent Mode Vent Rate Mechanical Rate PEEP Pressure Support Vent Sodium 142 Cancelled Potassium 5.9 H Cancelled Chloride 106 Cancelled Carbon Dioxide 19 L Cancelled Anion Gap 16 Cancelled BUN 77.2 H Cancelled Creatinine 3.9 H Cancelled Est GFR (CKD-EPI)AfAm 16.39 Cancelled Est GFR (CKD-EPI)NonAf 14.14 Cancelled Random Glucose 264 H Cancelled Calcium 8.2 L Cancelled Phosphorus Magnesium Total Bilirubin AST ALT Alkaline Phosphatase LD Total C-Reactive Protein Total Protein Albumin Ur Random Creatinine Ur Random Sodium Ur Random Potassium Ur Random Chloride Random Vancomycin Blood Type Antibody Screen 05/24/20 05/24/20 05/24/20 12:45 13:43 20:45 WBC RBC Hgb Hct MCV MCH MCHC RDW Plt Count MPV Absolute Neuts (auto) Total Counted Neutrophils % Neutrophils % (Manual) Band Neutrophils % Lymphocytes % Lymphocytes % (Manual) Monocytes % Monocytes % (Manual) Eosinophils % Eosinophils % (Manual) Basophils % Basophils % (Manual) Myelocytes % (Man) Promyelocytes % (Man) Blast Cells % (Manual) Nucleated RBC % Metamyelocytes Differential Comment Hypersegmented Neuts Plasma Cells Smudge Cells Other Cell Type Hypochromia Toxic Granulation Dohle Bodies [place] Rods Platelet Estimate Platelet Comment Polychromasia Poikilocytosis Basophilic Stippling Anisocytosis Microcytosis Macrocytosis Spherocytes Siderocytes Sickle Cells Target Cells Tear Drop Cells Ovalocytes Stomatocytes Helmet Cells [place] Bodies Emma Rings [place] Cells Acanthocytes (Spur) Rouleaux Fragmented RBCs Schistocytes Haptoglobin PT with INR INR PTT (Actin FS) Fibrinogen Anticoagulation Therapy No Result Required. Puncture Site No Result Required. Patient Temperature No Result Required. ABG pH 7.040 L* ABG pCO2 67.70 H ABG pO2 43.1 L ABG HCO3 17.9 L ABG O2 Sat (Measured) 57.5 L ABG O2 Content No Result Required. ABG Base Excess -13.4 L Nathen Test Positive Patient On Oxygen Yes O2 Delivery Device V Oxygen Flow Rate 100 Vent Mode Ac Vent Rate 30 Mechanical Rate V PEEP 10.0 Pressure Support Vent 500 Sodium Potassium Chloride Carbon Dioxide Anion Gap BUN Creatinine Est GFR (CKD-EPI)AfAm Est GFR (CKD-EPI)NonAf Random Glucose Calcium Phosphorus Magnesium Total Bilirubin AST ALT Alkaline Phosphatase LD Total C-Reactive Protein Total Protein Albumin Ur Random Creatinine 146.0 Ur Random Sodium 23 L Ur Random Potassium 70.0 Ur Random Chloride < 11 L Random Vancomycin Blood Type A POSITIVE Antibody Screen Negative 05/25/20 05/25/20 05/25/20 06:00 06:00 06:00 WBC RBC Hgb Hct MCV MCH MCHC RDW Plt Count MPV Absolute Neuts (auto) Total Counted Neutrophils % Neutrophils % (Manual) Band Neutrophils % Lymphocytes % Lymphocytes % (Manual) Monocytes % Monocytes % (Manual) Eosinophils % Eosinophils % (Manual) Basophils % Basophils % (Manual) Myelocytes % (Man) Promyelocytes % (Man) Blast Cells % (Manual) Nucleated RBC % Metamyelocytes Differential Comment Hypersegmented Neuts Plasma Cells Smudge Cells Other Cell Type Hypochromia Toxic Granulation Dohle Bodies [place] Rods Platelet Estimate Platelet Comment Polychromasia Poikilocytosis Basophilic Stippling Anisocytosis Microcytosis Macrocytosis Spherocytes Siderocytes Sickle Cells Target Cells Tear Drop Cells Ovalocytes Stomatocytes Helmet Cells [place] Bodies Emma Rings [place] Cells Acanthocytes (Spur) Rouleaux Fragmented RBCs Schistocytes Haptoglobin PT with INR 34.10 H INR 2.91 H PTT (Actin FS) 37.4 H Fibrinogen Anticoagulation Therapy Puncture Site Patient Temperature ABG pH ABG pCO2 ABG pO2 ABG HCO3 ABG O2 Sat (Measured) ABG O2 Content ABG Base Excess Nathen Test Patient On Oxygen O2 Delivery Device Oxygen Flow Rate Vent Mode Vent Rate Mechanical Rate PEEP Pressure Support Vent Sodium 140 Potassium 6.0 H Chloride 101 Carbon Dioxide 24 Anion Gap 16 BUN 81.2 H Creatinine 5.1 H Est GFR (CKD-EPI)AfAm 11.85 Est GFR (CKD-EPI)NonAf 10.22 Random Glucose 166 H Calcium 7.4 L Phosphorus 11.3 H* Magnesium 3.1 H Total Bilirubin 1.3 H AST 741 H ALT 684 H Alkaline Phosphatase 88 LD Total 796 H C-Reactive Protein 12.7 H Total Protein 5.4 L Albumin 2.6 L Ur Random Creatinine Ur Random Sodium Ur Random Potassium Ur Random Chloride Random Vancomycin < 0.8 L Blood Type Antibody Screen 05/25/20 05/25/20 05/25/20 06:00 06:00 06:00 WBC 556.0 H* RBC 4.34 Hgb 10.8 L Hct 41.0 MCV 94.5 MCH 25.0 L MCHC 26.5 L RDW 18.8 H Plt Count 99 L MPV 9.6 Absolute Neuts (auto) 16.7 H Total Counted 100 Cancelled Neutrophils % Cycle Consultant Neutrophils % (Manual) 3.0 L Cancelled Band Neutrophils % Cancelled Lymphocytes % Cycle Consultant Lymphocytes % (Manual) 97.0 H* Cancelled Monocytes % Cycle Consultant Monocytes % (Manual) Cancelled Eosinophils % Cycle Consultant Eosinophils % (Manual) Cancelled Basophils % Cycle Consultant Basophils % (Manual) Cancelled Myelocytes % (Man) Cancelled Promyelocytes % (Man) Cancelled Blast Cells % (Manual) Cancelled Nucleated RBC % 0 Cancelled Metamyelocytes Cancelled Differential Comment Cancelled Hypersegmented Neuts Cancelled Plasma Cells Cancelled Smudge Cells Present Cancelled Other Cell Type Cancelled Hypochromia Cancelled Toxic Granulation Cancelled Dohle Bodies Cancelled [place] Rods Cancelled Platelet Estimate Decreased Cancelled Platelet Comment Cancelled Polychromasia Cancelled Poikilocytosis Cancelled Basophilic Stippling Cancelled Anisocytosis 1+ Cancelled Microcytosis Cancelled Macrocytosis Cancelled Spherocytes Cancelled Siderocytes Cancelled Sickle Cells Cancelled Target Cells Cancelled Tear Drop Cells Cancelled Ovalocytes 1+ Cancelled Stomatocytes Cancelled Helmet Cells Cancelled [place] Bodies Cancelled Emma Rings Cancelled [place] Cells 1+ Cancelled Acanthocytes (Spur) Cancelled Rouleaux Cancelled Fragmented RBCs Cancelled Schistocytes Cancelled Haptoglobin PT with INR INR PTT (Actin FS) Fibrinogen 236.0 L Anticoagulation Therapy Puncture Site Patient Temperature ABG pH ABG pCO2 ABG pO2 ABG HCO3 ABG O2 Sat (Measured) ABG O2 Content ABG Base Excess Nathen Test Patient On Oxygen O2 Delivery Device Oxygen Flow Rate Vent Mode Vent Rate Mechanical Rate PEEP Pressure Support Vent Sodium Potassium Chloride Carbon Dioxide Anion Gap BUN Creatinine Est GFR (CKD-EPI)AfAm Est GFR (CKD-EPI)NonAf Random Glucose Calcium Phosphorus Magnesium Total Bilirubin AST ALT Alkaline Phosphatase LD Total C-Reactive Protein Total Protein Albumin Ur Random Creatinine Ur Random Sodium Ur Random Potassium Ur Random Chloride Random Vancomycin Blood Type Antibody Screen 05/25/20 09:10 WBC RBC Hgb Hct MCV MCH MCHC RDW Plt Count MPV Absolute Neuts (auto) Total Counted Neutrophils % Neutrophils % (Manual) Band Neutrophils % Lymphocytes % Lymphocytes % (Manual) Monocytes % Monocytes % (Manual) Eosinophils % Eosinophils % (Manual) Basophils % Basophils % (Manual) Myelocytes % (Man) Promyelocytes % (Man) Blast Cells % (Manual) Nucleated RBC % Metamyelocytes Differential Comment Hypersegmented Neuts Plasma Cells Smudge Cells Other Cell Type Hypochromia Toxic Granulation Dohle Bodies [place] Rods Platelet Estimate Platelet Comment Polychromasia Poikilocytosis Basophilic Stippling Anisocytosis Microcytosis Macrocytosis Spherocytes Siderocytes Sickle Cells Target Cells Tear Drop Cells Ovalocytes Stomatocytes Helmet Cells [place] Bodies Emma Rings [place]ury Cells Acanthocytes (Spur) Rouleaux Fragmented RBCs Schistocytes Haptoglobin PT with INR INR PTT (Actin FS) Fibrinogen Anticoagulation Therapy No Result Required. Puncture Site Arterial line Patient Temperature No Result Required. ABG pH 6.908 L* ABG pCO2 56.90 H ABG pO2 95.7 ABG HCO3 11.1 L ABG O2 Sat (Measured) 90.8 L ABG O2 Content No Result Required. ABG Base Excess -21.8 L Nathen Test No Result Required. Patient On Oxygen Yes O2 Delivery Device V Oxygen Flow Rate 100 Vent Mode Ac Vent Rate 30 Mechanical Rate V PEEP 10.0 Pressure Support Vent 500 Sodium Potassium Chloride Carbon Dioxide Anion Gap BUN Creatinine Est GFR (CKD-EPI)AfAm Est GFR (CKD-EPI)NonAf Random Glucose Calcium Phosphorus Magnesium Total Bilirubin AST ALT Alkaline Phosphatase LD Total C-Reactive Protein Total Protein Albumin Ur Random Creatinine Ur Random Sodium Ur Random Potassium Ur Random Chloride Random Vancomycin Blood Type Antibody Screen Imaging - Results Chest X-ray: Image Reviewed (Personal read: 05/19 Bilateral opacities) Problem List - Problems (1) COVID-19 with multiple comorbidities Code(s): U07.1 - COVID-19 (2) Acute hypoxemic respiratory failure Code(s): J96.01 - ACUTE RESPIRATORY FAILURE WITH HYPOXIA (3) Abnormal INR Code(s): R79.1 - ABNORMAL COAGULATION PROFILE (4) Atrial fibrillation Code(s): I48.91 - UNSPECIFIED ATRIAL FIBRILLATION Qualifiers: Atrial fibrillation type: chronic (5) CLL (chronic lymphocytic leukemia) Code(s): C91.10 - CHRONIC LYMPHOCYTIC LEUK OF B-CELL TYPE NOT ACHIEVE REMIS (6) Thrombocytopenia Code(s): D69.6 - THROMBOCYTOPENIA, UNSPECIFIED (7) Weakness Code(s): R53.1 - WEAKNESS Assessment/Plan ARF Severe coagulopathy Worsening ARDS No evidence of PTX on repeat CXR LTTV strategy : allowing for permissive hypercapnea: Maintain Pplat ideally below 30 HD per Renal for HD to improve Acidosis Close follow up of his K+ level ABX per ID Heme follow up for INR / WBC Will hold on further Remdesivir : No mortality data and his liver synthesis is damaged Able to oxygenate at this point so little benefit of prone positioning given his overall condition and outcome. Will hold on Prone positioning as he will likely arrest during the maneuver. Strict I/O Hold enteral feeds for now PPI Requires continued ICU monitoring Overall prognosis for survival is grave. There would be no benefit from CPR in this critically ill patient with MOF. Dr Cano Critical care time spent in reviewing chart, evaluating patient and formulating plan - 36 minutes.
[2020-05-25] MEDS: VASOPRESSIN 40 UNITS in SODIUM CHLORIDE 98 ML IVPB SCH ×2 (14:00→16:24)
--- NOTE | 2020-05-25 15:37 | PN ---
Progress Note, Physician History of Present Illness: Pt seen and examined at bedside. He remains in the ICU. He remains hypotensive. - Current Medication List Current Medications: Active Medications Albuterol Sulfate (Ventolin Hfa Inhaler -) 2 puff IH Q4H PRN PRN Reason: SHORT OF BREATH/WHEEZING Dexamethasone Sodium Phosphate (Decadron Injection -) 6 mg IVPUSH DAILY [facility] Last Admin: 05/25/20 09:35 Dose: 6 mg Documented by: Hydrocortisone Sodium Succinate (Solu-Cortef -) 50 mg IVPUSH Q6H [facility] Last Admin: 05/25/20 09:38 Dose: 50 mg Documented by: Diltiazem HCl 125 mg/ Dextrose 125 mls @ 5 mls/hr IVPB TITR [facility]; Protocol Last Admin: 05/25/20 09:29 Dose: Not Given Documented by: Norepinephrine Bitartrate 16, (000 mcg/ Sodium Chloride) 500 mls @ 9.375 mls/hr IV TITR [facility]; Protocol Last Admin: 05/25/20 08:56 Dose: 30 mcg/min, 56.25 mls/hr Documented by: Meropenem 1 gm/ Dextrose 100 mls @ 200 mls/hr IVPB Q12H [facility] Last Admin: 05/25/20 14:31 Dose: 200 mls/hr Documented by: Vasopressin 40 units/ Sodium (Chloride) 100 mls @ 5 mls/hr IVPB ASDIR [facility]; Protocol Last Titration: 05/25/20 07:00 Dose: 6 units/hr, 15 mls/hr Documented by: Propofol (Diprivan -) 1,000,000 mcg in 100 mls @ 2.76 mls/hr IVPB TITR [facility]; Protocol Last Titration: 05/25/20 12:00 Dose: 0 mcg/kg/min, 0 mls/hr Documented by: Vecuronium [place] (Vecuronium [place]) 100 mg in 100 mls @ 5.52 mls/hr IVPB TITR [facility] Last Titration: 05/25/20 11:00 Dose: 1 mcg/kg/min, 5.5 mls/hr Documented by: Sodium Chloride (Normal Saline -) 250 mls @ 3,000 mls/hr IV PRN PRN PRN Reason: Hypotension during Dialysis Stop: 05/26/20 10:35 Phenylephrine HCl (Chad-Synephrine) 25,000 mcg in 250 mls @ 60 mls/hr CVP TITR [facility]; Protocol Last Titration: 05/25/20 14:33 Dose: 150 mcg/min, 90 mls/hr Documented by: Sodium Bicarbonate 150 meq/ (Dextrose) 1,150 mls @ 70 mls/hr IV Q16H [facility] Last Admin: 05/25/20 13:10 Dose: 70 mls/hr Documented by: Metoprolol Tartrate (Lopressor Injection -) 5 mg IVPUSH Q4H PRN PRN Reason: TACHYCARDIA Pantoprazole Sodium (Protonix Iv) 40 mg IVPUSH DAILY [facility] Last Admin: 05/25/20 09:35 Dose: 40 mg Documented by: - Objective Vital Signs: Vital Signs Temperature 95.6 F L 05/25/20 14:00 Pulse Rate 83 05/25/20 14:26 Respiratory Rate 30 H 05/25/20 14:26 Blood Pressure 83/47 L 05/25/20 14:26 O2 Sat by Pulse Oximetry (%) 82 L 05/25/20 14:00 Constitutional: Yes: Calm Eyes: Yes: Conjunctiva Clear HENT: Yes: Atraumatic Neck: Yes: Supple Cardiovascular: Yes: S1, S2 Respiratory: Yes: Mechanically Ventilated Gastrointestinal: Yes: Soft Genitourinary: Yes: [place] Present, Oliguria Musculoskeletal: Yes: Muscle Weakness Edema: No Integumentary: Yes: WNL Neurological: Yes: Lethargy Labs: CBC, BMP 05/25/20 06:00 05/25/20 06:00 INR, PTT INR 2.91 (0.83-1.09) H 05/25/20 06:00 Fibrinogen 236.0 mg/dL (238-498) L 05/25/20 06:00 - ....Imaging Chest X-ray: Report Reviewed Problem List - Problems (1) ROSALBA (acute kidney injury) Code(s): N17.9 - ACUTE KIDNEY FAILURE, UNSPECIFIED (2) Acute hypoxemic respiratory failure Code(s): J96.01 - ACUTE RESPIRATORY FAILURE WITH HYPOXIA (3) COVID-19 with multiple comorbidities Code(s): U07.1 - COVID-19 (4) CLL (chronic lymphocytic leukemia) Code(s): C91.10 - CHRONIC LYMPHOCYTIC LEUK OF B-CELL TYPE NOT ACHIEVE REMIS Assessment/Plan Current Medications Generic Name Dose Route Start Last Admin Trade Name Freq PRN Reason Stop Dose Admin Albuterol Sulfate 2 puff 05/22/20 09:31 Ventolin Hfa Inhaler - IH Q4H PRN SHORT OF BREATH/WHEEZING Dexamethasone Sodium Phosphate 6 mg 05/20/20 10:00 05/25/20 09:35 Decadron Injection - IVPUSH 6 mg DAILY [facility] Administration Hydrocortisone Sodium Succinate 50 mg 05/24/20 16:15 05/25/20 09:38 Solu-Cortef - IVPUSH 50 mg Q6H [facility] Administration Diltiazem HCl 125 mg/ Dextrose 125 mls @ 5 mls/hr 05/23/20 09:15 05/25/20 09:29 IVPB Not Given TITR [facility] Protocol 5 MG/HR Norepinephrine Bitartrate 16, 500 mls @ 9.375 mls/hr 05/24/20 08:30 05/25/20 08:56 000 mcg/ Sodium Chloride IV 30 mcg/min TITR [facility] 56.25 mls/hr Administration Protocol 5 MCG/MIN Meropenem 1 gm/ Dextrose 100 mls @ 200 mls/hr 05/24/20 15:00 05/25/20 14:31 IVPB 200 mls/hr Q12H [facility] Administration Vasopressin 40 units/ Sodium 100 mls @ 5 mls/hr 05/24/20 16:15 05/25/20 07:00 Chloride IVPB 6 units/hr ASDIR [facility] 15 mls/hr Titration Protocol 2 UNITS/HR Propofol 1,000,000 mcg in 100 mls @ 2.76 mls/hr 05/24/20 19:15 05/25/20 12:00 Diprivan - IVPB 0 mcg/kg/min TITR [facility] 0 mls/hr Titration Protocol 5 MCG/KG/MIN Vecuronium [place] 100 mg in 100 mls @ 5.52 mls/hr 05/24/20 19:15 05/25/20 11:00 Vecuronium [place] IVPB 1 mcg/kg/min TITR [facility] 5.5 mls/hr Titration 1 MCG/KG/MIN Sodium Chloride 250 mls @ 3,000 mls/hr 05/25/20 10:35 Normal Saline - IV 05/26/20 10:35 PRN PRN Hypotension during Dialysis Phenylephrine HCl 25,000 mcg in 250 mls @ 60 mls/hr 05/25/20 12:00 05/25/20 14:33 Chad-Synephrine CVP 150 mcg/min TITR [facility] 90 mls/hr Titration Protocol 100 MCG/MIN Sodium Bicarbonate 150 meq/ 1,150 mls @ 70 mls/hr 05/25/20 12:14 05/25/20 13:10 Dextrose IV 70 mls/hr Q16H [facility] Administration Metoprolol Tartrate 5 mg 05/20/20 12:22 Lopressor Injection - IVPUSH Q4H PRN TACHYCARDIA Pantoprazole Sodium 40 mg 05/19/20 14:15 05/25/20 09:35 Protonix Iv IVPUSH 40 mg DAILY [facility] Administration pt seen several times through the course of the day Impression 1. ROSALBA 2. hyperkalemia 3. covid 19 pna 4. acute resp failure 5. cll 6. a-fib 7. shock 8. hypotension 9. aortic stenosis Plan - HD today - dialysis stopped early secondary to hypotension - cont to monitor urine output - pt remain oliguric - likely atn - discussed with ICU team - called and discussed with family - prognosis guarded - cont vent support
[2020-05-25 17:35] LABS: PROTHROMBIN TIME (PATIENT) 63.5 SEC (9.7-13.0)
[2020-05-25 17:44] LABS: INR 5.42 (0.83-1.09)
[2020-05-25] MEDS ORDERED: EPINEPHrine 1:10,000 (P-F SYR) 1 MG/10 ML DISP.SYRIN ONE (18:06)
[2020-05-25] MEDS ORDERED: INSULIN (NOVOLOG) ASPART 100 UNITS/ML 10ML VIAL ONE (18:24)
[2020-05-25] MEDS ORDERED: NOREPINEPHRINE BITARTRATE 4 MG/4 ML ML IV ONE (18:30)
[2020-05-25 18:37] VITALS: TEMP 95.6
[2020-05-25 18:53] VITALS: BP 0/0; PULSE 0
--- NOTE | 2020-05-25 19:55 | PN ---
Progress Note (short form) - Note Progress Note: Pt monitor noted to be significant for bradycardia and hypoxia despite maximal interventions. DNR confirmed with family. FaceTime provided to family. Progressive bradycardia occurred till asystole. On exam pt is unresponsive, even to painful stimuli. Pupils fixed and non- reactive. Pt has no spontaneous breathing, no heart sounds or breath sounds. No carotid pulse present. TOD: 18:55 on 25 May 2020 Family notified Grievance services offered to family. Body to be released to home of familys choice.
--- NOTE | 2020-05-25 22:32 | PN ---
Progress Note, Physician History of Present Illness: SEDATED ON VENTILKATOR RECEIVED HEMODIALYSIS HYPOTHERMIC ELEVATED LFTS - Current Medication List Current Medications: Active Medications Albuterol Sulfate (Ventolin Hfa Inhaler -) 2 puff IH Q4H PRN PRN Reason: SHORT OF BREATH/WHEEZING Dexamethasone Sodium Phosphate (Decadron Injection -) 6 mg IVPUSH DAILY [facility] Last Admin: 05/25/20 09:35 Dose: 6 mg Documented by: Hydrocortisone Sodium Succinate (Solu-Cortef -) 50 mg IVPUSH Q6H [facility] Last Admin: 05/25/20 16:19 Dose: 50 mg Documented by: Diltiazem HCl 125 mg/ Dextrose 125 mls @ 5 mls/hr IVPB TITR [facility]; Protocol Last Admin: 05/25/20 09:29 Dose: Not Given Documented by: Norepinephrine Bitartrate 16, (000 mcg/ Sodium Chloride) 500 mls @ 9.375 mls/hr IV TITR [facility]; Protocol Last Admin: 05/25/20 18:34 Dose: 30 mcg/min, 56.25 mls/hr Documented by: Meropenem 1 gm/ Dextrose 100 mls @ 200 mls/hr IVPB Q12H [facility] Last Admin: 05/25/20 14:31 Dose: 200 mls/hr Documented by: Vasopressin 40 units/ Sodium (Chloride) 100 mls @ 5 mls/hr IVPB ASDIR [facility]; Protocol Last Admin: 05/25/20 16:24 Dose: Not Given Documented by: Propofol (Diprivan -) 1,000,000 mcg in 100 mls @ 2.76 mls/hr IVPB TITR [facility]; Protocol Last Titration: 05/25/20 12:00 Dose: 0 mcg/kg/min, 0 mls/hr Documented by: Vecuronium [place] (Vecuronium [place]) 100 mg in 100 mls @ 5.52 mls/hr IVPB TITR [facility] Last Titration: 05/25/20 11:00 Dose: 1 mcg/kg/min, 5.5 mls/hr Documented by: Sodium Chloride (Normal Saline -) 250 mls @ 3,000 mls/hr IV PRN PRN PRN Reason: Hypotension during Dialysis Stop: 05/26/20 10:35 Phenylephrine HCl (Chad-Synephrine) 25,000 mcg in 250 mls @ 60 mls/hr CVP TITR [facility]; Protocol Last Titration: 05/25/20 14:33 Dose: 150 mcg/min, 90 mls/hr Documented by: Sodium Bicarbonate 150 meq/ (Dextrose) 1,150 mls @ 70 mls/hr IV Q16H [facility] Last Admin: 05/25/20 13:10 Dose: 70 mls/hr Documented by: Metoprolol Tartrate (Lopressor Injection -) 5 mg IVPUSH Q4H PRN PRN Reason: TACHYCARDIA Pantoprazole Sodium (Protonix Iv) 40 mg IVPUSH DAILY [facility] Last Admin: 05/25/20 09:35 Dose: 40 mg Documented by: - Objective Vital Signs: Vital Signs Temperature 95.6 F L 05/25/20 18:30 Pulse Rate 0 L 05/25/20 18:50 Respiratory Rate 30 H 05/25/20 18:30 Blood Pressure 0/0 L 05/25/20 18:50 O2 Sat by Pulse Oximetry (%) 81 L 05/25/20 18:30 Constitutional: Yes: No Distress Eyes: Yes: Conjunctiva Clear Cardiovascular: Yes: Regular Rate and Rhythm, S1, S2 Respiratory: Yes: Mechanically Ventilated Gastrointestinal: Yes: Normal Bowel Sounds, Soft Labs: CBC, BMP 05/25/20 06:00 05/25/20 06:00 INR, PTT INR 5.42 (0.83-1.09) H* 05/25/20 16:50 Fibrinogen 236.0 mg/dL (238-498) L 05/25/20 06:00 Assessment/Plan RESPIRATORY FAILURE PNEUMONIA COVID PNEUMONITIS RENAL FAILURE ELEVATED LFTS CONTINUE MEROPENEM
--- NOTE | 2020-05-25 23:50 | PN ---
Progress Note, Physician History of Present Illness: Pt seen and examined at about 3:00pm - Current Medication List Current Medications: Active Medications Albuterol Sulfate (Ventolin Hfa Inhaler -) 2 puff IH Q4H PRN PRN Reason: SHORT OF BREATH/WHEEZING Dexamethasone Sodium Phosphate (Decadron Injection -) 6 mg IVPUSH DAILY [facility] Last Admin: 05/25/20 09:35 Dose: 6 mg Documented by: Hydrocortisone Sodium Succinate (Solu-Cortef -) 50 mg IVPUSH Q6H [facility] Last Admin: 05/25/20 16:19 Dose: 50 mg Documented by: Diltiazem HCl 125 mg/ Dextrose 125 mls @ 5 mls/hr IVPB TITR [facility]; Protocol Last Admin: 05/25/20 09:29 Dose: Not Given Documented by: Norepinephrine Bitartrate 16, (000 mcg/ Sodium Chloride) 500 mls @ 9.375 mls/hr IV TITR [facility]; Protocol Last Admin: 05/25/20 18:34 Dose: 30 mcg/min, 56.25 mls/hr Documented by: Meropenem 1 gm/ Dextrose 100 mls @ 200 mls/hr IVPB Q12H [facility] Last Admin: 05/25/20 14:31 Dose: 200 mls/hr Documented by: Vasopressin 40 units/ Sodium (Chloride) 100 mls @ 5 mls/hr IVPB ASDIR [facility]; Protocol Last Admin: 05/25/20 16:24 Dose: Not Given Documented by: Propofol (Diprivan -) 1,000,000 mcg in 100 mls @ 2.76 mls/hr IVPB TITR [facility]; Protocol Last Titration: 05/25/20 12:00 Dose: 0 mcg/kg/min, 0 mls/hr Documented by: Vecuronium [place] (Vecuronium [place]) 100 mg in 100 mls @ 5.52 mls/hr IVPB TITR [facility] Last Titration: 05/25/20 11:00 Dose: 1 mcg/kg/min, 5.5 mls/hr Documented by: Sodium Chloride (Normal Saline -) 250 mls @ 3,000 mls/hr IV PRN PRN PRN Reason: Hypotension during Dialysis Stop: 05/26/20 10:35 Phenylephrine HCl ([place]ad-Synephrine) 25,000 mcg in 250 mls @ 60 mls/hr CVP TITR [facility]; Protocol Last Titration: 05/25/20 14:33 Dose: 150 mcg/min, 90 mls/hr Documented by: Sodium Bicarbonate 150 meq/ (Dextrose) 1,150 mls @ 70 mls/hr IV Q16H [facility] Last Admin: 05/25/20 13:10 Dose: 70 mls/hr Documented by: Metoprolol Tartrate (Lopressor Injection -) 5 mg IVPUSH Q4H PRN PRN Reason: TACHYCARDIA Pantoprazole Sodium (Protonix Iv) 40 mg IVPUSH DAILY [facility] Last Admin: 05/25/20 09:35 Dose: 40 mg Documented by: - Objective Vital Signs: Vital Signs Temperature 95.6 F L 05/25/20 18:30 Pulse Rate 0 L 05/25/20 18:50 Respiratory Rate 30 H 05/25/20 18:30 Blood Pressure 0/0 L 05/25/20 18:50 O2 Sat by Pulse Oximetry (%) 81 L 05/25/20 18:30 Constitutional: Yes: Other (Pt intubated) Cardiovascular: Yes: Tachycardia Respiratory: Yes: Other (Coarse BS B/L) Gastrointestinal: Yes: WNL, Normal Bowel Sounds, Soft Labs: CBC, BMP 05/25/20 06:00 05/25/20 06:00 INR, PTT INR 5.42 (0.83-1.09) H* 05/25/20 16:50 Fibrinogen 236.0 mg/dL (238-498) L 05/25/20 06:00 Problem List - Problems (1) Acute hypoxemic respiratory failure Assessment/Plan: Due to COVID-19 pneumonia Pt remains intubated ?ARDS Poor prognosis Pt now on pressors Code(s): J96.01 - ACUTE RESPIRATORY FAILURE WITH HYPOXIA (2) ARF (acute renal failure) Assessment/Plan: Pt unable to tolerate full session of dialysis Code(s): N17.9 - ACUTE KIDNEY FAILURE, UNSPECIFIED (3) Bilateral pneumonia Assessment/Plan: Cont antibxs Due to COVID Code(s): J18.9 - PNEUMONIA, UNSPECIFIED ORGANISM (4) COVID-19 with multiple comorbidities Assessment/Plan: Remdesivir was dc'ed Pt received convalascent plasma Code(s): U07.1 - COVID-19 (5) Atrial fibrillation Assessment/Plan: INR elevated However due to elevated D-Dimer will not reverse at this time Monitor for bleeding Daily PT/INR Hold coumadin Code(s): I48.91 - UNSPECIFIED ATRIAL FIBRILLATION Qualifiers: Atrial fibrillation type: chronic (6) CLL (chronic lymphocytic leukemia) Assessment/Plan: Will get heme/onc consult Code(s): C91.10 - CHRONIC LYMPHOCYTIC LEUK OF B-CELL TYPE NOT ACHIEVE REMIS (7) HLD (hyperlipidemia) Code(s): E78.5 - HYPERLIPIDEMIA, UNSPECIFIED (8) HTN (hypertension) Code(s): I10 - ESSENTIAL (PRIMARY) HYPERTENSION
[2020-05-27 17:07] LABS: IGA IMMUNOGLOBULIN 36 mg/dL (61-437); IGG QN IMMUNOGLOBULIN 496 mg/dL (603-1613); IGM QN SERUM 11 mg/dL (15-143)
[2020-05-29 00:11] LABS: HEP B CORE AB, TOT Negative (Negative)
== END 2020-05-25 18:55 | disposition expired | DRG 208 ==
LOC: JER 08:48 → JERBED 09:58 → JICU 12:12
PROVIDERS: ADMIT Internal Medicine Pulmonary Disease; ATTEND Internal Medicine Pulmonary Disease
PROC: XW13325 Transfusion of Convalescent Plasma (Nonautologous) into Peripheral Vein, Percutaneous Approach, New Technology Group 5 (ICD-10-PCS; 2020-05-21)
PROC: 5A1945Z Respiratory Ventilation, 24-96 Consecutive Hours (ICD-10-PCS; principal; 2020-05-23)
PROC: 0CHY7BZ Insertion of Airway into Mouth and Throat, Via Natural or Artificial Opening (ICD-10-PCS; 2020-05-23)
PROC: 05HM33Z Insertion of Infusion Device into Right Internal Jugular Vein, Percutaneous Approach (ICD-10-PCS; 2020-05-23)
PROC: B543ZZA Ultrasonography of Right Jugular Veins, Guidance (ICD-10-PCS; 2020-05-23)
PROC: 4A133B1 Monitoring of Arterial Pressure, Peripheral, Percutaneous Approach (ICD-10-PCS; 2020-05-23)
PROC: 4A133J1 Monitoring of Arterial Pulse, Peripheral, Percutaneous Approach (ICD-10-PCS; 2020-05-23)
PROC: 06HM33Z Insertion of Infusion Device into Right Femoral Vein, Percutaneous Approach (ICD-10-PCS; 2020-05-24)
PROC: B54BZZA Ultrasonography of Right Lower Extremity Veins, Guidance (ICD-10-PCS; 2020-05-24)
DX: U07.1 COVID-19 (principal); J12.89 Other viral pneumonia; J96.01 Acute respiratory failure with hypoxia; N17.0 Acute kidney failure with tubular necrosis; A41.9 Sepsis, unspecified organism; R65.21 Severe sepsis with septic shock; C91.10 Chronic lymphocytic leukemia of B-cell type not having achieved remission; I50.32 Chronic diastolic (congestive) heart failure; D68.9 Coagulation defect, unspecified; I11.0 Hypertensive heart disease with heart failure; I10 Essential (primary) hypertension; E78.5 Hyperlipidemia, unspecified; I48.91 Unspecified atrial fibrillation; R53.1 Weakness; E87.5 Hyperkalemia; D69.6 Thrombocytopenia, unspecified; I95.9 Hypotension, unspecified; R00.1 Bradycardia, unspecified; R94.31 Abnormal electrocardiogram [ECG] [EKG]; E66.9 Obesity, unspecified; Z68.30 Body mass index [BMI] 30.0-30.9, adult; R94.5 Abnormal results of liver function studies; I08.0 Rheumatic disorders of both mitral and aortic valves; I46.9 Cardiac arrest, cause unspecified; Z66 Do not resuscitate; Z86.73 Personal history of transient ischemic attack (TIA), and cerebral infarction without residual deficits; Z95.2 Presence of prosthetic heart valve; Z85.038 Personal history of other malignant neoplasm of large intestine
CPT/HCPCS: 31500; 36415; 36430; 36600; 71045-TC-FY; 80048; 80053; 81003; 82436; 82550; 82565; 82728; 82784; 82803; 82962; 83010; 83605; 83615; 83735; 84100; 84132; 84133; 84300; 84484; 85025; 85379; 85384; 85610; 85730; 86140; 86704; 86706; 86707; 86708; 86709; 86803; 86850; 86900; 86901; 87040; 87070; 87077; 87086; 87205; 87340; 87804; 87899; 88300-TC; 93005; 93010; 94002; 94660; 99291; C9803; G0480; J0131; P9017; U0003